=== PATIENT | female | born 1980 | race Caucasian/White ===

== ENCOUNTER 2020-03-09 13:28 | Outpatient (REF) | payer OTHER, SELFPAY ==
--- NOTE | 2020-03-09 13:33 | MM_ITS ---
EXAMINATION: MM SCREENING DIGITAL BREAST TOMOSYNTHESIS, BILATERAL CLINICAL INFORMATION: Screening. Asymptomatic. No prior breast imaging. Age 39. No known family history breast cancer. The lifetime risk of breast cancer based on the Tyrer-Cuzick Model is 9%. COMPARISON: None (current study represents initial baseline exam). TECHNIQUE: Digital breast tomosynthesis is performed in both the craniocaudal and mediolateral oblique views along with computer-aided detection (CAD). Synthesized 2D images are generated from the tomosynthesis. Additional exaggerated left CC view is provided. FINDINGS: There are scattered areas of fibroglandular density (ACR BI-RADS breast composition Category b). The right breast is unremarkable. There is no mass or architectural abnormality. Neither breast shows abnormal calcifications. The axilla and skin contours are unremarkable. The left MLO view has an asymmetric density superior breast approximately 6 cm from nipple without correlate on CC view. This may represent summation artifact. Patient will be recalled to fully characterize baseline appearance. MM/MM tomosynthesis screening BI IMPRESSION: 1. Left: Asymmetric density superior breast on MLO view, possibly summation artifact. 2. Right: No mammographic evidence of malignancy. ASSESSMENT: BI-RADS 0: Incomplete - Need Additional Imaging Evaluation RECOMMENDATION: 1. Additional views of the left breast (3-D spot MLO, 3-D ML). 2. Targeted ultrasound if warranted after review of the additional views. 3. Radiology department staff will contact the patient for additional imaging. This patient's information was entered into a reminder system with a target due date for their next mammogram.
== END 2020-03-09 13:29 | disposition home or self-care (01) ==
LOC: HO.MAMMO 13:28
PROVIDERS: PCP Family Medicine; Visit Provider Advanced Practice Midwife
DX: Z12.31 Encounter for screening mammogram for malignant neoplasm of breast (principal)
CPT/HCPCS: 77063; 77067

== ENCOUNTER 2020-03-16 07:33 | Outpatient (REF) | payer OTHER, SELFPAY ==
[2020-03-16 10:57] LABS: Alanine Aminotransferase 17 U/L (0-31); Albumin Level 4.2 g/dL (3.5-5.0); Alkaline Phosphatase 55 U/L (39-117); Anion Gap 12 (12-20); Aspartate Amino Transferase 18 U/L (5-31); Bilirubin Total 0.9 mg/dL (0.0-1.0); Blood Urea Nitrogen 10 mg/dL (9-16); Calcium 8.7 mg/dL (8.4-10.2); Carbon Dioxide 26 mmol/L (22-29); Chloride 105 mmol/L (96-108); Cholesterol 177 mg/dL; Estimated Glomerular Filt Rate > 60; Glucose Fasting 79 mg/dL (60-99); HDL Cholesterol 58 mg/dL; LDL Cholesterol Calculated 110 mg/dl; Potassium 3.9 mmol/l (3.3-5.1); Sodium 139 mmol/L (135-145); Total Protein 6.5 g/dL (6.5-8.0); Triglycerides 45 mg/dL
[2020-03-16 11:18] LABS: Free T4 (Free Thyroxine) 0.96 ng/dL (0.71-1.85); Thyroid Stimulating Hormone 3.62 uIU/mL (0.32-4.0)
[2020-03-17 16:27] LABS: Triiodothyronine T3 Total 85 ng/dL (76-181)
== END 2020-03-16 07:34 | disposition home or self-care (01) ==
LOC: HO.10HDL 07:33
PROVIDERS: Visit Provider Family Medicine
DX: Z00.00 Encounter for general adult medical examination without abnormal findings (principal); Z13.29 Encounter for screening for other suspected endocrine disorder; Z13.220 Encounter for screening for lipoid disorders
CPT/HCPCS: 36415; 80053; 80061; 84439; 84443; 84480

== ENCOUNTER 2020-04-08 14:21 | Outpatient (REF) | payer OTHER, SELFPAY ==
--- NOTE | 2020-04-08 | MM_ITS ---
EXAMINATION: MM DIAGNOSTIC DIGITAL BREAST TOMOSYNTHESIS, LEFT CLINICAL INFORMATION: Recall from baseline exam for asymmetric density superior left breast without correlate on CC view, likely summation artifact. COMPARISON: Mammography: 03/09/2020, baseline. TECHNIQUE: Digital breast tomosynthesis is performed. 2D images are generated from the tomosynthesis. The following views are obtained: Spot MLO, standard ML FINDINGS: There are scattered areas of fibroglandular density (ACR BI-RADS breast composition Category b). Additional views show no persistent asymmetric density in the area of interest. Finding on recent screening mammography is therefore consistent with summation artifact as suspected. Results are discussed with the patient at time of visit. MM/MM tomosynthesis added views L IMPRESSION: Additional imaging shows no persistent asymmetric density in the area of interest. ASSESSMENT: BI-RADS 1: Negative RECOMMENDATION: Routine annual mammography screening. This patient's information was entered into a reminder system with a target due date for their next mammogram.
== END 2020-04-08 14:22 | disposition home or self-care (01) ==
LOC: HO.MAMMO 14:21
PROVIDERS: PCP Family Medicine; Visit Provider Advanced Practice Midwife
DX: N64.89 Other specified disorders of breast (principal)
CPT/HCPCS: 77061; 77065

== ENCOUNTER 2020-06-02 14:29 | Outpatient (REF) | payer OTHER, SELFPAY ==
[2020-06-02 16:54] LABS: Free T4 (Free Thyroxine) 0.87 ng/dL (0.71-1.85); Thyroid Stimulating Hormone 1.72 uIU/mL (0.32-4.0)
[2020-06-03 08:57] LABS: Thyroid Peroxidase Antibodies 356 IU/mL (<9)
[2020-06-03 18:37] LABS: Thyroglobulin Antibodies 1 IU/mL (< or = 1)
== END 2020-06-02 14:30 | disposition home or self-care (01) ==
LOC: HO.LAB 14:29
PROVIDERS: PCP Family Medicine; Visit Provider Nurse Practitioner Gerontology
DX: E03.9 Hypothyroidism, unspecified (principal); E16.2 Hypoglycemia, unspecified; Z79.899 Other long term (current) drug therapy
CPT/HCPCS: 36415; 84439; 84443; 86376; 86800

== ENCOUNTER 2020-06-28 09:26 | Outpatient (REF) | payer OTHER, SELFPAY ==
[2020-07-01 05:42] LABS: HPV mRNA E6/E7 rflx Not Detected (Not Detected)
== END 2020-06-28 09:27 | disposition home or self-care (01) ==
LOC: HO.LAB 09:26
PROVIDERS: Visit Provider Advanced Practice Midwife
DX: Z01.419 Encounter for gynecological examination (general) (routine) without abnormal findings (principal); E06.3 Autoimmune thyroiditis; Z79.899 Other long term (current) drug therapy
CPT/HCPCS: 87624; 88142

== ENCOUNTER 2020-07-23 09:05 | Outpatient (REF) | payer OTHER, SELFPAY ==
[2020-07-23 10:42] LABS: Free T4 (Free Thyroxine) 0.92 ng/dL (0.71-1.85); Thyroid Stimulating Hormone 1.97 uIU/mL (0.32-4.0)
== END 2020-07-23 09:06 | disposition home or self-care (01) ==
LOC: HO.LAB 09:05
PROVIDERS: PCP Family Medicine; Visit Provider Nurse Practitioner Gerontology
DX: E03.9 Hypothyroidism, unspecified (principal)
CPT/HCPCS: 36415; 84439; 84443

== ENCOUNTER → 2020-08-03 15:52 | Outpatient (BNVA) | payer OTHER, SELFPAY | PROVIDERS: PCP Family Medicine; Visit Provider Internal Medicine ==

== ENCOUNTER 2020-09-09 08:43 | Outpatient (REF) | payer OTHER, SELFPAY ==
[2020-09-09 10:25] LABS: Free T4 (Free Thyroxine) 0.87 ng/dL (0.71-1.85); Thyroid Stimulating Hormone 1.44 uIU/mL (0.32-4.0); Vitamin D 25-OH Total 46.4 ng/mL (>30)
[2020-09-09 10:35] LABS: Estimated Average Glucose 91 mg/dL; Hemoglobin A1c % 4.8 %
[2020-09-10 07:06] LABS: Insulin Level Total 5.2 uIU/mL; Thyroglobulin Antibodies 1 IU/mL (< or = 1); Thyroid Peroxidase Antibodies 276 IU/mL (<9)
[2020-09-10 07:51] LABS: Triiodothyronine T3 Free 2.7 pg/mL (2.3-4.2)
[2020-09-11 17:17] LABS: C Peptide 1.28 ng/mL (0.80-3.85)
[2020-09-14 11:22] LABS: Triiodothyronine T3 Reverse 15 ng/dL (8-25)
[2020-09-14 16:12] LABS: Iodine, Random Urine 81 mcg/L (34-523)
== END 2020-09-09 08:44 | disposition home or self-care (01) ==
LOC: HO.LAB 08:43
PROVIDERS: PCP Family Medicine; Visit Provider Allergy & Immunology Allergy
DX: E16.1 Other hypoglycemia (principal); E06.3 Autoimmune thyroiditis; E55.9 Vitamin D deficiency, unspecified
CPT/HCPCS: 36415; 82306; 83036; 83525; 83789; 84439; 84443; 84481; 84482; 84681; 86376; 86800

== ENCOUNTER 2020-10-21 09:44 | Outpatient (REF) | payer OTHER, SELFPAY ==
[2020-10-21 10:56] LABS: Iron 153 mcg/dL (30-160); Percent Iron Saturation 62 % (15-50); Total Iron Binding Capacity 245 mcg/dL (228-428); Unsaturated Iron Binding 92 ug/dL
[2020-10-21 11:16] LABS: Ferritin 51 ng/mL (10-250)
[2020-10-22 14:22] LABS: Immunoglobulin A 209 mg/dL (47-310); Immunoglobulin M 81 mg/dL (50-300); Streptolysin O Antibody <50 IU/mL (<200)
[2020-10-24 22:47] LABS: Immunoglobulin E 31 kU/L (<OR=114)
[2020-10-25 15:21] LABS: Mycoplasma Pneumoniae - IgG 1.47 (<=0.90); Mycoplasma Pneumoniae - IgM 82 U/mL (<770)
[2020-10-25 17:40] LABS: Strep DNASE B Antibody <95 U/mL (<301)
[2020-10-25 21:21] LABS: Immunoglobulin G Subclass 1 422 mg/dL (382-929); Immunoglobulin G Subclass 2 414 mg/dL (241-700); Immunoglobulin G Subclass 3 53 mg/dL (22-178); Immunoglobulin G Total 964 mg/dL (600-1640)
== END 2020-10-21 09:45 | disposition home or self-care (01) ==
LOC: HO.LAB 09:44
PROVIDERS: PCP Family Medicine; Visit Provider Allergy & Immunology Allergy
DX: D89.89 Other specified disorders involving the immune mechanism, not elsewhere classified (principal); E61.1 Iron deficiency
CPT/HCPCS: 36415; 82728; 82784; 82785; 83540; 86060; 86215; 86738

== ENCOUNTER 2021-05-13 08:57 | Outpatient (REF) | payer OTHER, SELFPAY ==
[2021-05-13 09:22] LABS: MANUAL DIFF FLAG NO
[2021-05-13 10:06] LABS: Basophils Percent Auto 0.9 % (0-2); Eosinophils Absolute Auto 0.1 X10*3/uL (0.0-0.4); Eosinophils Percent Auto 1.8 % (0-4); Hematocrit 39.3 % (37.0-47.0); Hemoglobin 12.8 g/dl (12.0-16.0); Imm Gran Abs Auto 0.01 X10*3/uL (0.00-0.03); Imm Gran Pct Auto 0.2 % (0.0-0.4); Lymphocytes Absolute Auto 1.4 X10*3/uL (1.2-4.9); Lymphocytes Percent Auto 32.6 % (20-40); Mean Corpuscular HGB Conc 32.6 g/dl (31.0-35.0); Mean Corpuscular Hemoglobin 30.4 pg (27.0-33.0); Mean Corpuscular Volume 93.3 fL (80.0-98.0); Mean Platelet Volume 10.1 fL (9.4-12.3); Monocytes Absolute Auto 0.4 X10*3/uL (0.1-1.2); Neutrophils Absolute Auto 2.4 x10*3/uL (2.0-8.3); Neutrophils Percent Auto 54.5 % (45-73); Platelet Count 282 X10*3/uL (160-400); Red Blood Count 4.21 X10*6/uL (4.20-5.50); White Blood Count 4.4 X10*3/uL (4.8-10.8)
[2021-05-13 10:53] LABS: Alanine Aminotransferase 7 U/L (0-31); Albumin Level 4.1 g/dL (3.5-5.0); Alkaline Phosphatase 55 U/L (39-117); Anion Gap 9 (12-20); Aspartate Amino Transferase 14 U/L (5-31); Bilirubin Total 0.8 mg/dL (0.0-1.0); Blood Urea Nitrogen 7 mg/dL (9-16); Calcium 9.6 mg/dL (8.4-10.2); Carbon Dioxide 28 mmol/L (22-29); Chloride 106 mmol/L (96-108); Cholesterol 177 mg/dL; Estimated Glomerular Filt Rate > 60; Glucose Fasting 81 mg/dL (60-99); HDL Cholesterol 55 mg/dL; LDL Cholesterol Calculated 111 mg/dl; Potassium 4.6 mmol/L (3.3-5.1); Sodium 138 mmol/L (135-145); Total Protein 6.5 g/dL (6.5-8.0); Triglycerides 56 mg/dL
[2021-05-13 10:57] LABS: TSH reflex Free T4 2.07 uIU/mL (0.32-4.0); Vitamin D 25-OH Total 30.2 ng/mL (>30)
== END 2021-05-13 08:58 | disposition home or self-care (01) ==
LOC: HO.LAB 08:57
PROVIDERS: PCP Family Medicine; Visit Provider Family Medicine
DX: Z00.00 Encounter for general adult medical examination without abnormal findings (principal); E55.9 Vitamin D deficiency, unspecified
CPT/HCPCS: 36415; 80053; 80061; 82306; 84443; 85025

== ENCOUNTER 2021-09-26 08:56 | Outpatient (REF) | payer OTHER, SELFPAY ==
[2021-09-26 10:08] LABS: Free T4 (Free Thyroxine) 0.86 ng/dL (0.71-1.85); Thyroid Stimulating Hormone 2.52 uIU/mL (0.32-4.0)
[2021-09-28 14:07] LABS: Triiodothyronine T3 Free 2.8 pg/mL (2.3-4.2)
[2021-10-02 15:32] LABS: Triiodothyronine T3 Reverse 15 ng/dL (8-25)
[2021-10-02 16:03] LABS: Iodine, Serum/Plasma 52 mcg/L (52-109)
== END 2021-09-26 08:57 | disposition home or self-care (01) ==
LOC: HO.10HDL 08:56
PROVIDERS: Visit Provider Allergy & Immunology Allergy
DX: E06.3 Autoimmune thyroiditis (principal)
CPT/HCPCS: 36415; 83789; 84439; 84443; 84481; 84482

== ENCOUNTER → 2022-03-07 13:16 | Outpatient (BNVA) | payer OTHER, SELFPAY | PROVIDERS: PCP Family Medicine; Visit Provider Advanced Practice Midwife | DX: Z12.4 Encounter for screening for malignant neoplasm of cervix (principal) ==

== ENCOUNTER 2022-05-17 12:59 | Outpatient (REF) | payer OTHER, SELFPAY ==
[2022-05-17 13:52] LABS: Influenza A PCR NEGATIVE (Negative); Influenza B PCR NEGATIVE (Negative); Resp Syncy Virus RNA Qual PCR NEGATIVE (Negative); SARS COV2 PCR INHOUSE NEGATIVE (Negative)
== END 2022-05-17 13:00 | disposition home or self-care (01) ==
LOC: HO.LNP 12:59
PROVIDERS: Visit Provider Nurse Practitioner Family
DX: Z20.822 Contact with and (suspected) exposure to COVID-19 (principal); R09.89 Other specified symptoms and signs involving the circulatory and respiratory systems
CPT/HCPCS: 0241U

== ENCOUNTER 2022-07-07 09:37 | Outpatient (REF) | payer OTHER, SELFPAY ==
[2022-07-07 11:32] LABS: Free T4 (Free Thyroxine) 0.78 ng/dL (0.71-1.85); Thyroid Stimulating Hormone 0.97 uIU/mL (0.32-4.0)
[2022-07-09 06:08] LABS: Follicle Stimulating Hormone 15.2 mIU/mL; Lutenizing Hormone 19.9 mIU/mL; Sex Hormone Binding Globulin 42 nmol/L (17-124)
[2022-07-09 13:13] LABS: Thyroglobulin 18.8 ng/mL; Thyroid Peroxidase Antibodies 300 IU/mL (<9)
[2022-07-11 18:13] LABS: Iodine, Random Urine 102 mcg/L (34-523)
[2022-07-12 13:38] LABS: Triiodothyronine T3 Reverse 13 ng/dL (8-25)
[2022-07-12 17:29] LABS: Progesterone 0.2 ng/mL
[2022-07-15 18:04] LABS: Pregnenolone, LC/MS 69 ng/dL (22-237)
[2022-07-16 14:54] LABS: Testosterone, Free 2.8 pg/mL (0.1-6.4); Testosterone, Total 25 ng/dL (2-45)
[2022-07-22 02:08] LABS: Estradiol Free 2.87 pg/mL; Estradiol, Ultrasensitive 172 pg/mL
== END 2022-07-07 09:38 | disposition home or self-care (01) ==
LOC: HO.LAB 09:37
PROVIDERS: PCP Family Medicine; Visit Provider Allergy & Immunology Allergy
DX: N94.89 Other specified conditions associated with female genital organs and menstrual cycle (principal); E06.3 Autoimmune thyroiditis
CPT/HCPCS: 36415; 82670; 82681; 83001; 83002; 83789; 84143; 84144; 84270; 84402; 84403; 84432; 84439; 84443; 84481; 84482; 86376

== ENCOUNTER 2022-10-26 15:22 | Outpatient (AMB) | payer OTHER, SELFPAY ==
--- NOTE | 2022-10-26 15:26 | MHC.PC.OV ---
Vital Signs 10/26/22 15:27 Height 5 ft 2 in Weight 161 lb 4 oz BMI 29.5 BP 144/82 H Blood Pressure Location Rt brachial Position Sitting Respiration 12 Pulse 73 Pulse Source Pulse Oximeter Temp 98.4 F Temp Source Temporal Artery Scan Pulse Oximetry (%) 99 Oxygen Delivery Method Room Air Intake Visit Reasons: Acute diarrhea for 6 days Intake Note: Patient states she has Clif[place], and cant have gluten. Patient states that she recently just came home from a [place] trip and thinks she may have consumed gluten through eating [employer]. Patient states that she hasnt been able to eat but has been able to hydrate. Orthophotography Technician Required: No Accompanied by: Self / Same As Patient Allergies amoxicillin [From Augmentin] Adverse Reaction (Intermediate, Verified 10/26/22 15:52) vomiting clavulanic acid [From Augmentin] Adverse Reaction (Intermediate, Verified 10/26/22 15:52) vomiting Doxycycline (Rosacea) Allergy (Unknown, Uncoded 10/26/22 15:52) vomiting Medication List - Last Reconciled 10/26/22 by Jason Fair CNP citalopram 10 mg PO DAILY levothyroxine 50 mcg PO QAM liothyronine 5 mcg PO DAILY naltrexone 3.5 mg PO DAILY norethindrone (contraceptive) 0.35 mg PO DAILY 84 days Tobacco use date assessed: 10/26/22 Dental Screening Dental Screen Date: 10/26/22 Did you have a dental visit in the last 12 months?: Yes Did you have a dental problem in the last 6 months where you did not have access to dental care?: No Was dental information given to patient?: Patient has dentist HPI HPI Comments History of Present Illness Details 41-year-old female presents with complaints of diarrhea. She notes that her symptoms started 6 days ago after she returned from a trip in [place]. She had [place] fries from [employer] on her way home that evening; her symptoms started the following day. She states her appetite has been fair. She thinks her symptoms may be attributed to gluten reaction. She has been taking Imodium with good effect. 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 No fever, chills, body aches, abdominal pain, nausea, vomiting, fatigue, or weakness. She denies sick contact. She denies recent antibiotic use. PFSH Medical History Hypoglycemia Hypothyroidism Vitamin D deficiency Surgical History No history of previous surgery Family History Mother Family history of thyroid problem Father Type 1 diabetes Maternal Grandfather Type 2 diabetes mellitus Maternal Grandmother Family history of thyroid problem Social History Household Members: Spouse and Children Housing: House Alcohol intake: never Patient Tobacco Use Status: Never used Tobacco e-Cigarette/Vaping Use: Never Used Second Hand Smoke Exposure: No service: No Current occupational exposures/hazards: No Gender identity: Female Cognitive needs: No Hearing needs: No Vision needs: No Female Reproductive History Menstrual Age of Menarche: 12 Questionnaire GOOD-7 AMB Questionnaire GOOD-7 Date GOOD - 7 assessed: 05/03/21 Source: Developed by Drs. Jose Antonio Lyles, Sabine Ma, Adan Foote and colleagues, with an educational sanna from [employer]. Review of Systems Const Details: Const Denies chills, Denies fatigue, Denies fever(s), Denies headache(s) and Denies weakness ENT Denies dizziness and Denies headache(s) Card Denies chest pain, Denies lightheadedness, Denies dyspnea and Denies other (Palpitations) Resp Denies cough, Denies dyspnea, Denies wheezing and Denies other ( shortness of breath) GI Reports as per HPI Denies hematuria and Denies dysuria Musc Denies abnormal gait, Denies myalgias, Denies arthralgias, Denies numbness and Denies tingling Skin/Breast Denies rash, Denies unusual bruising and Denies wounds Neuro Denies abnormal gait, Denies dizziness, Denies headache(s), Denies memory loss, Denies numbness, Denies Sensory deficit (Neuro), Denies tingling and Denies weakness Psych Denies anxiety, Denies depression, Denies memory loss Endo Denies cold intolerance, Denies fatigue, Denies heat intolerance, Denies polydipsia and Denies polyuria Aller/Immun Denies wheezing Physical exam (Primary Care) Vital Signs: Last Vital Signs Temp 98.4 F 10/26/22 15:27 Pulse 73 10/26/22 15:27 Resp 12 10/26/22 15:27 BP 144/82 H 10/26/22 15:27 Pulse Ox 99 10/26/22 15:27 Oxygen Delivery Method Room Air 10/26/22 15:27 BMI result Body Mass Index 29.5 Tobacco/Smoking Status: Tobacco use Status Tobacco use date assessed 10/26/22 10/26/22 15:35 Patient Tobacco Use Status Never used Tobacco 10/26/22 15:35 e-Cigarette/Vaping Use Never Used 10/26/22 15:35 Const Other: General: no acute distress and well developed Nutritional Appearance: well nourished Orientation/consciousness: patient oriented x3 HENMT Head: Yes normocephalic and Yes atraumatic Eyes General: appearance normal, both eyes and all related structures Pupils: Equal, round and reactive pupils present EOM: EOMs intact bilaterally Resp Effort & Inspection: normal respiratory effort Auscultation: clear to auscultation bilaterally Cardio Rate: regular rate Rhythm: regular rhythm Heart sounds: S1 normal heart sound present, S2 normal heart sound present, no gallops, no murmurs and no rubs GI Palpation (GI): No Abdominal aortic bruit present, Soft to palpation, nontender, No hepatosplenomegaly present and No Rebound tenderness present Auscultation: normal bowel sounds General: Yes no CVA tenderness Back/Spine/Pelvis Back: no CVA tenderness Cervical Spine: cervical ROM normal and No Cervical spine tenderness Thoracic/Lumbar Spine: thoraco-lumbar ROM normal, No pain with thoraco-lumbar ROM, No thoracic spinal tenderness and No lumbar spinal tenderness Extrem General: Yes normal to inspection, No edema and No calf tenderness Skin General: warm and dry. Normal skin color. Normal skin turgor Lesions: no lesions Rashes: no rashes Trauma: no lacerations or abrasions Wounds: no wounds Nails: normal Neuro General: patient oriented x3, gait normal and no focal neuro deficit Cranial nerves: Yes Equal, round and reactive pupils present Cognition (Neuro): normal cognition Gait exam (Neuro): Normal gait present Sensory Exam: No Sensory deficit (Neuro) Psych Appearance: grossly normal Affect: normal affect Attitude: cooperative Thought process: Normal thought process present Assessment and Plan Assessment & Plan (1) Diarrhea: Code(s): R19.7 - Diarrhea, unspecified Plan: Possibly gluten reaction, or viral of bacterial reaction Prednisone ordered. Take as prescribed GI panel ordered May take Metamucil as needed Adequate hydration encouraged Follow-up with worsening or new symptoms Verbalized understanding and agreed with treatment plan. Orders: Orders GI Panel Today R19.7 - Diarrhea, unspecified Medications: New prednisone 20 mg PO DAILY 5 days 5 tabs 0RF Coding Level of Care Code Est Pt Level 3 (43925) Diagnoses Diarrhea R19.7
[2022-10-26 15:27] VITALS: BP 144/82; PULSE 73; RESP 12; TEMP 36.9; O2SAT 99; BMI 29.5
== END 2022-10-26 16:14 | disposition home or self-care (01) ==
PROVIDERS: PCP Family Medicine; Visit Provider Nurse Practitioner Family
DX: R19.7 Diarrhea, unspecified (principal)
CPT/HCPCS: 99213

== ENCOUNTER 2022-10-26 16:36 | Outpatient (REF) | payer OTHER, SELFPAY | END 2022-10-26 16:37 | disposition home or self-care (01) | LOC: HO.LAB 16:36 | PROVIDERS: PCP Family Medicine; Visit Provider Nurse Practitioner Family | DX: Z13.89 Encounter for screening for other disorder (principal) ==

== ENCOUNTER 2022-10-27 | Outpatient (REF) | payer OTHER, SELFPAY ==
[2022-10-27 15:11] LABS: Adenovirus F 40/41 Not Detected (Not Detect.); Astrovirus Not Detected (Not Detect.); Campylobacter Not Detected (Not Detect.); Cryptosporidium Not Detected (Not Detect.); Cyclospora cayetanensis Not Detected (Not Detect.); E. coli EAEC Not Detected (Not Detect.); E. coli EPEC Not Detected (Not Detect.); E. coli ETEC Not Detected (Not Detect.); E. coli STEC Not Detected (Not Detect.); Entamoeba histolytica Not Detected (Not Detect.); Giardia lamblia Not Detected (Not Detect.); Norovirus GI/GII Not Detected (Not Detect.); Plesiomonas shigelloides Not Detected (Not Detect.); Rotavirus A Not Detected (Not Detect.); Salmonella Not Detected (Not Detect.); Sapovirus Not Detected (Not Detect.); Shigella sp./EIEC Not Detected (Not Detect.); Vibrio Not Detected (Not Detect.); Vibrio Cholerae Not Detected (Not Detect.); Yersinia enterocolitica Not Detected (Not Detect.)
== END 2022-10-27 00:01 | disposition home or self-care (01) ==
LOC: HO.LNP
PROVIDERS: Visit Provider Nurse Practitioner Family
DX: R19.7 Diarrhea, unspecified (principal)
CPT/HCPCS: 87507

== ENCOUNTER 2023-02-23 07:48 | Outpatient (REF) | payer OTHER, SELFPAY ==
[2023-02-23 09:51] LABS: T4 Thyroxine 6.6 ug/dL (4.5-12.0); Thyroid Stimulating Hormone 1.01 uIU/mL (0.32-4.0)
[2023-02-24 20:24] LABS: Triiodothyronine T3 Free 2.9 pg/mL (2.3-4.2)
[2023-02-27 09:54] LABS: Triiodothyronine T3 Reverse 16 ng/dL (8-25)
== END 2023-02-23 07:49 | disposition home or self-care (01) ==
LOC: HO.LAB 07:48
PROVIDERS: PCP Family Medicine; Visit Provider Allergy & Immunology Allergy
DX: E06.3 Autoimmune thyroiditis (principal)
CPT/HCPCS: 36415; 84436; 84443; 84481; 84482

== ENCOUNTER 2023-03-06 09:22 | Outpatient (AMB) | payer OTHER, SELFPAY ==
--- NOTE | 2023-03-06 09:23 | A.OFFVIS_ITS ---
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 Intake Note: Is having her menses twice in a month and her last menses was 11 days long Product Marketer Required: No Information Interpreted: non-clinical & clinical Foiling Machine Operator: Foiling Machine Operator Present (Aidyn) Allergies amoxicillin [From Augmentin] Adverse Reaction (Intermediate, Verified 03/06/23 09:29) vomiting clavulanic acid [From Augmentin] Adverse Reaction (Intermediate, Verified 03/06/23 09:29) vomiting Doxycycline (Rosacea) Allergy (Unknown, Uncoded 03/06/23 09:29) vomiting Medication List - Last Reconciled 03/06/23 by Lynn Juarez CNM citalopram 10 mg PO DAILY levothyroxine 50 mcg PO QAM liothyronine 5 mcg PO DAILY naltrexone 3.5 mg PO DAILY norethindrone (contraceptive) 0.35 mg PO DAILY 84 days Is last menstrual period known: Yes Last menstrual period: 02/21/23 Post menopausal: No HPI MUSEUM EDUCATOR annual exam HPI Details Patient 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 She sees a belt conveyor drier to manage her thyroid issues and is on different medications for that and had all of her hormones checked the 1st time she had abnormal bleeding in July. In July she had 2 periods 1 that was the beginning of July of around July 11 or and it lasted fiber 6 days which is her norm and then 1 week later she had another period. Then in January at the beginning of January she had a period that was normal, and then again in the middle of January she had another 1. this last menses then came on February 21 and it lasted until March 05 and is just trailing off at this moment. She said her belt conveyor drier checked all of her hormone levels to a more extensive degree that is usually done in this institution and everything came back in the normal range. Is on norethindrone control pills and is on those because when I questioned her about history of migraines with auras she did describe them and she had been on combination pills so I changed her from combination pills to the norethindrone sometime ago. She needs to be on control because she says for looks at her funny she gets and she does not want to be at 42 years old. she needs a reliable method of control. She is up-to-date on her mammograms and is expecting a letter from [facility] to schedule her next 1 at the beginning of the year [facility] Medical History Vitamin D deficiency Hypoglycemia Hypothyroidism Surgical History No history of previous surgery Family History Mother Family history of thyroid problem Father Type 1 diabetes Maternal Grandfather Type 2 diabetes mellitus Maternal Grandmother Family history of thyroid problem Social History Household Members: Spouse and Children Housing: House Alcohol intake: never Patient Tobacco Use Status: Never used Tobacco e-Cigarette/Vaping Use: Never Used Second Hand Smoke Exposure: No service: No Current occupational exposures/hazards: No Gender identity: Female Cognitive needs: No Hearing needs: No Vision needs: No Female Reproductive History Menstrual Age of Menarche: 12 Duration of menses: >10 days Date of last menstrual period: 02/21/23 control method: pills Total pregnancies: 2 Full term: 2 Number of Living Children: 2 Date of last pap smear: 06/29/20 (negative) Date of Mammogram: 04/08/20 Physical Exam Const General: healthy appearing, comfortable, no acute distress, well developed and a lert Nutritional Appearance: average body habitus Orientation/consciousness: patient oriented x3 Limitations: no limitations HEENT Head: Yes normocephalic Neck Neck: Yes normal visual inspection Chest Chest palpation & inspection: normal inspection of the chest Breast/axilla inspection: normal inspection of the breasts and normal inspection of the axillae Breast/axilla palpation: normal palpation of the breasts and normal palpation of the axillae Resp Effort & Inspection: normal respiratory effort GI Inspection: Yes normal to inspection, No Abdominal wall edema and No distended Palpation (GI): Soft to palpation and nontender General: Yes bladder normal to palpation External Female Exam: normal external appearance and normal appearance of the urethra Speculum Exam - Vagina: normal appearance of the vagina, normal palpation and normal vaginal discharge Speculum Exam - Cervix: normal appearance of the cervix, normal palpation and nontender Bimanual exam- vagina & uterus: normal bimanual exam, normal palpation, uterine size normal, bladder normal to palpation, consistency normal, normal palpation, uterine mobility normal, uterine shape normal, No Cervical tenderness present, non-tender and no cervical motion tenderness Bimanual Exam- Adnexa, other: normal adnexae, no masses, normal and No adnexal tenderness Neuro General: patient oriented x3 Assessment & Plan Assessment & Plan (1) Screening for cervical cancer: Comment: 06/28/20 pap= neg w neg HPV, Code(s): Z12.4 - Encounter for screening for malignant neoplasm of cervix (2) Breast cancer screening by mammogram: Code(s): Z12.31 - Encounter for screening mammogram for malignant neoplasm of breast (3) Well woman exam with routine gynecological exam: Code(s): Z01.419 - Encounter for gynecological examination (general) (routine) without abnormal findings (4) Counseling for control, oral contraceptives: Comment: is continuing on norethindrone 0.35 mg q.day. Code(s): Z30.09 - Encounter for other general counseling and advice on contraception (5) Abnormal uterine bleeding (AUB): Code(s): N93.9 - Abnormal uterine and vaginal bleeding, unspecified Plan extensive discussion about the abnormal bleeding pattern and the need to evaluate it and possible findings. I will order a pelvic ultrasound and we will arrange for a visit for an endometrial biopsy after the ultrasound result is back and I reviewed with her what that would feel like and possible outcomes and management after that discussed the possibility of a Mirena IU S if everything is normal if there is anything abnormal I will refer her to either Dr. Ramirez and if there were any thing that he felt would be better managed at [facility] he would refer her there. For now she will stay on the norethindrone control pills. cultures were done just in anticipation of the endometrial biopsy since there is some old blood in the vaginal vault from the end of her menses told her to expect Gardnerella as it is commonly found.\ also discussed her concern about the weight gain and assured her that she seems to be doing the best she can and this could be challenging. Suggested some aerobic addition she will be scheduling the mammogram when she gets a letter.. Orders: Orders US pelvic and transvaginal Today N93.9 - Abnormal uterine and vaginal bleeding, unspecified, Z01.419 - Encounter for gynecological examination (general) (routine) without abnormal findings, Z12.31 - Encounter for screening mammogram for malignant neoplasm of breast, Z12.4 - Encounter for screening for malignant neoplasm of cervix, Z30.09 - Encounter for other general counseling and advice on contraception Medications: Refilled norethindrone (contraceptive) 0.35 mg PO DAILY 84 days 84 tabs 4RF Coding Level of Care Code Est Pt Prev Care 40-64y(44446) Diagnoses Screening for cervical cancer Z12.4 Breast cancer screening by mammogram Z12.31 Well woman exam with routine gynecological exam Z01.419 Counseling for control, oral contraceptives Z30.09 Abnormal uterine bleeding (AUB) N93.9
== END 2023-03-06 13:20 | disposition home or self-care (01) ==
LOC: HO.HWS 09:23
PROVIDERS: PCP Family Medicine; Visit Provider Advanced Practice Midwife
DX: Z01.419 Encounter for gynecological examination (general) (routine) without abnormal findings (principal); N93.9 Abnormal uterine and vaginal bleeding, unspecified
CPT/HCPCS: 99396

== ENCOUNTER 2023-03-06 09:22 | Outpatient (REF) | payer OTHER, SELFPAY ==
[2023-03-07 02:48] LABS: CT PCR NOT DETECTED (Not Detect.); NG PCR NOT DETECTED (Not Detect.)
[2023-03-07 12:48] LABS: BV Int Neg Control Negative (Negative); BV Int Pos Control Positive (Positive)
== END 2023-03-06 09:23 | disposition home or self-care (01) ==
LOC: HO.LNP 09:22
PROVIDERS: PCP Family Medicine; Visit Provider Advanced Practice Midwife
DX: Z01.419 Encounter for gynecological examination (general) (routine) without abnormal findings (principal); N93.9 Abnormal uterine and vaginal bleeding, unspecified; Z20.2 Contact with and (suspected) exposure to infections with a predominantly sexual mode of transmission; Z79.899 Other long term (current) drug therapy
CPT/HCPCS: 0353U; 87480; 87510; 87660

== ENCOUNTER 2023-03-08 15:17 | Outpatient (REF) | payer OTHER, SELFPAY | END 2023-03-08 15:18 | disposition home or self-care (01) | LOC: HO.HMGCX 15:17 | PROVIDERS: PCP Family Medicine; Visit Provider Advanced Practice Midwife | DX: N83.202 Unspecified ovarian cyst, left side (principal); N83.201 Unspecified ovarian cyst, right side; N93.9 Abnormal uterine and vaginal bleeding, unspecified | CPT/HCPCS: 76830; 76856 ==

== ENCOUNTER 2023-04-15 10:41 | Outpatient (AMB) | payer OTHER, SELFPAY ==
--- NOTE | 2023-04-15 10:54 | A.OFFVIS_ITS ---
Intake Vital Signs 04/15/23 11:07 Height 5 ft 2 in Weight 171 lb BMI 31.3 BP 166/102 H Intake Visit Reasons: EMB/US follow up Component Assembler Supervisor Required: No Information Interpreted: non-clinical & clinical Media Arts Professor: Media Arts Professor Present (Josselyn) Accompanied by: Allergies amoxicillin [From Augmentin] Adverse Reaction (Intermediate, Verified 04/15/23 11:08) vomiting clavulanic acid [From Augmentin] Adverse Reaction (Intermediate, Verified 04/15/23 11:08) vomiting Doxycycline (Rosacea) Allergy (Unknown, Uncoded 04/15/23 11:08) vomiting Is last menstrual period known: Yes Last menstrual period: 03/30/23 Post menopausal: No HPI EMB/US follow up HPI Details Patient is here today with her for review of the ultrasound and endometrial biopsy. She is very anxious about possible bad results including cancer and is curious about what if scenarios. [facility] Medical History Vitamin D deficiency Hypoglycemia Hypothyroidism Surgical History No history of previous surgery Family History Mother Family history of thyroid problem Father Type 1 diabetes Maternal Grandfather Type 2 diabetes mellitus Maternal Grandmother Family history of thyroid problem Social History Household Members: Spouse and Children Housing: House Alcohol intake: never Patient Tobacco Use Status: Never used Tobacco e-Cigarette/Vaping Use: Never Used Second Hand Smoke Exposure: No service: No Current occupational exposures/hazards: No Gender identity: Female Cognitive needs: No Hearing needs: No Vision needs: No Female Reproductive History Menstrual Age of Menarche: 12 Duration of menses: 3-5 days Date of last menstrual period: 03/30/23 control method: pills Date of last pap smear: 06/29/20 (negative) Physical Exam Vital Signs: Last Vital Signs BP 166/102 H 04/15/23 11:07 BMI result Body Mass Index 31.3 Office Procedures Endometrial Biopsy Details: Patient is here for an endometrial biopsy. I explained the procedure and what the goal of the obtaining the sample is, and why we need need to do it today. Patient signed consent form, and appropriate testing was done beforehand. test is negative. Patient was placed in recumbent position. Bimanual exam was done to reassess position of cervix and uterus. Speculum was placed to visualize cervix the cervix was cleansed with Betadine. A tenaculum was gently placed to straighten the axis. The uterus was sounded to 8cm. The endometrial biopsy Pipelle was inserted gently, and withdrawn to obtain sampling of the endometrial tissue for 3 passes. And with this it appeared that it may not be adequate sampling so the plastic suction curette was also used for 3 passes. The tenaculum was removed and the cervix was swabbed gently as any bleeding subsided. the patient sat up after removal of the speculum. She is to return for discussion of the results and review of any other testing. [id number] Biopsy Results AMB Test Urine AMB Test Urine Negative Last Edit by MELISSA Hurtado on 04/15/23 11:17 Results Reviewed Results Reviewed: Laboratory Last Values [facility] Negative 04/15/23 11:16 Patient: Negar Elias MR#: [id number] : 1980 Acct:[id number] Age/Sex: 42 / F ADM Date: 03/08/23 Loc: HO.HMGCX Attending Dr: Lynn Juarez CNM Ordering Physician: Lynn Juarez CNM Date of Service: 03/08/23 Procedure(s): US pelvic and transvaginal Accession Number(s): [id number] cc: Geoffrey Zhou MD; Lynn Juarez CNM~ EXAMINATION: US PELVIS CLINICAL INFORMATION: Pain LMP 02/21/2023 COMPARISON: None available. TECHNIQUE: Ultrasound of the pelvis is performed using both transabdominal and transvaginal transducers along with Doppler. Transvaginal imaging is performed due to inadequate visualization transabdominally. FINDINGS: Uterus: The uterus is anteverted and measures 8.3 x 4.5 x 5.0 cm. The uterine volume measured 5.0 cm The double wall endometrial thickness is 0.6 mm. The uterus is smooth in contour and has normal myometrial echogenicity. No visible fibroid. Adnexa: There is no pelvic ascites or fluid collection. Right ovary measures 3.4 x 1.9 x 2.3 cm. 8.0 cm volume of the right ovary and there is 1.4 x 0.7 x 1.5 cm cyst Left ovary measures 4.4 x 3.4 x 3.7 cm. With a volume of left ovary measured 29 mL and there is 2.5 x 2.3 x 2.3 cm cyst. There is trace of fluid in cul-de-sac US/US pelvic and transvaginal IMPRESSION: Bilateral ovarian cysts. Trace of fluid in cul-de-sac. Dictated By: Sierra Prado MD Signed By: <Electronically signed by Sierra Prado MD in OV> 03/13/23 1638 Name: CurtNegar Age/Sex: 39/F Attending: Lynn Juarez CNM : 1980 Submitted by: Lynn Juarez CNM Copies to: MR #: [id number] Status: DEP REF Collected: 06/28/20 Location: .LAB Received: 06/29/20 Interpretation Satisfactory for evaluation. Negative for intraepithelial lesion or malignancy. HPV mRNA E6/E7: NOT DETECTED This assay detects E6/E7 viral messenger RNA (mRNA) from 14 high-risk HPV types (16, 18, 31, 33, 35, 39, 45, 51, 52, 56, 58, 59, 66, 68) HPV testing performed by [facility], [place], [place]. See reference laboratory portion of the EMR for entire report. Clinical Information LMP: 06/12/20 Previous PAP test: 2016, WNL Material Received ThinPrep Cervical Electronically Signed By: Yandy Parada 07/01/20 7342 The Pap Test is a screening procedure with the inherent possibility of both false negative and false positive results. Results should be interpreted in the context of historic and current clinical findings. Reliability of the Pap Test is enhanced by performing the test on a regular repetitive basis. Patient: Negar Elais Age/Sex: 39/F MR#: [id number] Page 1 of 1 DD/ 1602 Assessment & Plan Assessment & Plan (1) Abnormal uterine bleeding (AUB): Code(s): N93.9 - Abnormal uterine and vaginal bleeding, unspecified (2) Counseling for control, oral contraceptives: Comment: is continuing on norethindrone 0.35 mg q.day. Code(s): Z30.09 - Encounter for other general counseling and advice on contraception (3) Screening for cervical cancer: Comment: 06/28/20 pap= neg w neg HPV, Code(s): Z12.4 - Encounter for screening for malignant neoplasm of cervix Plan I reviewed the ultrasound with her including the 2 small simple cysts and the normal assessment of the endometrial lining. Reviewed the possibilities of fi ndings that we may obtain today including benign results indeterminate results possibly from inadequate sampling which will then deserve further workup and I would recommended be with Dr. Ramirez, or pathologic results which I would referred to Dr. Ramirez and he would make his best recommendations about care from there. Discussed that there is always the possibility of transfer of care to [facility] should that be recommended. She has a history of irregular periods all her life and was put on control pills extremely early and was on combination pills until she started getting migraines which is when she was switch to the norethindrone control pills. Discussed the possible outcomes from this endometrial biopsy today including a) negative benign results.,b) indeterminate results resulting from in sufficient sampling. If this is the case then I will recommend that she see Dr. Ramirez for further testing and evaluation and management. C) if there is anything pathologic found, I will also refer her to Dr. Ramirez and he will consider and discuss options with her which may include further management further evaluation further testing and possibly referral to [facility] for further management as well. If the findings are benign, and there was no atypia found were finding of concern then 1 option would be to continue on as she has with the norethindrone pills, or the other option could include a Mirena IU S which slowly constantly releases levonorgestrel and helps protect against buildup the lining of the uterus. Discussed that 1 can still have an irregular spotting bleeding brown discharge with a Mirena as well.. We will see her in 1 week to review the results. With her permission if I get results in sooner and can call her she is open to that she is extremely anxious and would prefer results the sooner the better. Orders: Orders AMB Endometrial Biopsy Today N93.9 - Abnormal uterine and vaginal bleeding, unspecified, Z12.4 - Encounter for screening for malignant neoplasm of cervix, Z30.09 - Encounter for other general counseling and advice on contraception Surgical Today N93.9 - Abnormal uterine and vaginal bleeding, unspecified AMB HCG Urine Test Today Z32.02 - Encounter for test, result negative Coding Level of Care Code Est Pt Level 3 (19564) Diagnoses Abnormal uterine bleeding (AUB) N93.9 Counseling for control, oral contraceptives Z30.09 Screening for cervical cancer Z12.4 CPT Codes Endometrial Biopsy - CPT: 88446-[id number] Biopsy ([id number])
[2023-04-15 11:07] VITALS: BP 166/102; BMI 31.3
== END 2023-04-15 13:13 | disposition home or self-care (01) ==
LOC: HO.HWSM 10:41
PROVIDERS: PCP Family Medicine; Visit Provider Advanced Practice Midwife
DX: N93.9 Abnormal uterine and vaginal bleeding, unspecified (principal); Z30.09 Encounter for other general counseling and advice on contraception
CPT/HCPCS: 58100; 99213

== ENCOUNTER 2023-04-15 10:41 | Outpatient (REF) | payer OTHER, SELFPAY | END 2023-04-15 10:42 | disposition home or self-care (01) | LOC: HO.LNP 10:41 | PROVIDERS: PCP Family Medicine; Visit Provider Advanced Practice Midwife | DX: N93.9 Abnormal uterine and vaginal bleeding, unspecified (principal) | CPT/HCPCS: 58100; 88305 ==

== ENCOUNTER 2023-04-17 15:59 | Outpatient (AMB) | payer OTHER, SELFPAY ==
--- NOTE | 2023-04-17 16:00 | A.OFFVIS_ITS ---
Intake Intake Visit Reasons: EMB result Final Inspector Balance Wheel Required: No Allergies amoxicillin [From Augmentin] Adverse Reaction (Intermediate, Verified 04/17/23 16:00) vomiting clavulanic acid [From Augmentin] Adverse Reaction (Intermediate, Verified 04/17/23 16:00) vomiting Doxycycline (Rosacea) Allergy (Unknown, Uncoded 04/17/23 16:00) vomiting Medication List - Last Reconciled 04/17/23 by Lynn Juarez CNM citalopram 10 mg PO DAILY levothyroxine 50 mcg PO QAM liothyronine 5 mcg PO DAILY naltrexone 3.5 mg PO DAILY norethindrone (contraceptive) 0.35 mg PO DAILY 84 days Post menopausal: No Patient : No HPI EMB result HPI Details Is a tele visit to discuss patient's endometrial biopsy results endometrial biopsy had been done 2 days ago and the patient was extremely anxious to get the results as soon as they would come in. [facility] Medical History Vitamin D deficiency Hypoglycemia Hypothyroidism Surgical History No history of previous surgery Family History Mother Family history of thyroid problem Father Type 1 diabetes Maternal Grandfather Type 2 diabetes mellitus Maternal Grandmother Family history of thyroid problem Social History Household Members: Spouse and Children Housing: House Alcohol intake: never Patient Tobacco Use Status: Never used Tobacco e-Cigarette/Vaping Use: Never Used Second Hand Smoke Exposure: No Patient : No service: No Current occupational exposures/hazards: No Gender identity: Female Cognitive needs: No Hearing needs: No Vision needs: No Female Reproductive History Menstrual Age of Menarche: 12 control method: none Results Reviewed Results Reviewed: Name: Negar Elias Age/Sex: 42/F Attending: Lynn Juarez CNM : 1980 Submitted by: Lynn Juarez CNM Copies to: Geoffrey Zhou MD MR #: [id number] Status: DEP REF Collected: 04/15/23 Location: [facility] Received: 04/16/23 Diagnosis Endometrium, biopsy: Superficial fragments of benign inactive endometrium, endocervical glandular epithelium, and abundant blood and mucus; no atypia or carcinoma. Clinical History AUB Microscopic Description Microscopic sections reviewed. Material Received EMB Gross Description Received in formalin labeled ?EMB? is a 1.5 x 1.5 x 0.4 cm aggregate of predominantly mucus and blood and threads of red-maroon tissue, submitted in toto in a cassette labeled A. CEDS Copies To Geoffrey Zhou MD [address] [facility]. [place], [place] [id number] Lynn Juarez [address] Coburn [address] [place] [id number] NOTE: Unless otherwise stated, all tissue is formalin-fixed and paraffin- embedded. Some or all of the immunohistochemical tests reported herein may have been developed and their performance characteristics determined by [facility]. They have not been cleared or approved by the U.S. Food and Drug Administration (FDA). However, the FDA has determined that such clearance or approval is not necessary. This laboratory is certified under the Clinical Laboratory Improvement Amendments of 1988 (CLIA) as qualified to perform high complexity clinical laboratory testing. Electronically Signed By: Kerry Silva 04/17/23 3729 Patient: Negar Elias Age/Sex: 42/F MR#: [id number] Page 1 of 1 Patient: Negar Elias MR#: [id number] : 1980 Acct:[id number] Age/Sex: 42 / F ADM Date: 03/08/23 Loc: HO.HMGCX Attending Dr: Lynn Juarez CNM Ordering Physician: Lynn Juarez CNM Date of Service: 03/08/23 Procedure(s): US pelvic and transvaginal Accession Number(s): [id number] cc: Geoffrey Zhou MD; Lynn Juarez CNM~ EXAMINATION: US PELVIS CLINICAL INFORMATION: Pain LMP 02/21/2023 COMPARISON: None available. TECHNIQUE: Ultrasound of the pelvis is performed using both transabdominal and transvaginal transducers along with Doppler. Transvaginal imaging is performed due to inadequate visualization transabdominally. FINDINGS: Uterus: The uterus is anteverted and measures 8.3 x 4.5 x 5.0 cm. The uterine volume measured 5.0 cm The double wall endometrial thickness is 0.6 mm. The uterus is smooth in contour and has normal myometrial echogenicity. No visible fibroid. Adnexa: There is no pelvic ascites or fluid collection. Right ovary measures 3.4 x 1.9 x 2.3 cm. 8.0 cm volume of the right ovary and there is 1.4 x 0.7 x 1.5 cm cyst Left ovary measures 4.4 x 3.4 x 3.7 cm. With a volume of left ovary measured 29 mL and there is 2.5 x 2.3 x 2.3 cm cyst. There is trace of fluid in cul-de-sac US/US pelvic and transvaginal IMPRESSION: Bilateral ovarian cysts. Trace of fluid in cul-de-sac. Dictated By: Sierra Prado MD Signed By: <Electronically signed by Sierra Prado MD in OV> 03/13/23 1638 DD/ 1602 TD/TT: Photoengraving Supervisor: Assessment & Plan Assessment & Plan (1) Abnormal uterine bleeding (AUB): Code(s): N93.9 - Abnormal uterine and vaginal bleeding, unspecified (2) Screening for cervical cancer: Comment: 06/28/20 pap= neg w neg HPV, Code(s): Z12.4 - Encounter for screening for malignant neoplasm of cervix (3) Counseling for control, oral contraceptives: Comment: is continuing on norethindrone 0.35 mg q.day. Code(s): Z30.09 - Encounter for other general counseling and advice on contraception (4) Ovarian cyst: Code(s): N83.209 - Unspecified ovarian cyst, unspecified side Plan I reviewed the biopsy results with her and again reviewed the ultrasound with her. Discussed options of not doing anything and continuing on the norethindrone only control pills as she has versus considering a Mirena IU S to help prevent further episodes of abnormal bleeding. Alternatively having a more in-depth this discussion of any other possible concerns with Dr. Ramirez. She is interested in that. She will be making a follow-up appointment with Dr. Ramirez and I asked her to call tomorrow if no would niece called her to make this appointment already. Telehealth Telehealth Location of provider rendering services: practice address Location of patient: address on file Patient Identification confirmed using: Name, : Yes Telehealth method: voice only Patient verbally consented to treatment: Yes Patient verbally consented to billing insurance company: Yes Patient informed of any privacy concerns related to visit: Yes Minutes spent on Phone/Video with Pt.: 8 Coding Level of Care Code Tele Est Pt Level 3 (39297) Diagnoses Abnormal uterine bleeding (AUB) N93.9 Screening for cervical cancer Z12.4 Counseling for control, oral contraceptives Z30.09 Ovarian cyst N83.209 Time Spent (min) 15 Comment 2cr/8 speaking and making plan w pt/5 charting=15
== END 2023-04-17 16:01 | disposition home or self-care (01) ==
LOC: HO.HWSM 15:59
PROVIDERS: PCP Family Medicine; Visit Provider Advanced Practice Midwife
DX: N93.9 Abnormal uterine and vaginal bleeding, unspecified (principal); N83.201 Unspecified ovarian cyst, right side; N83.202 Unspecified ovarian cyst, left side; Z30.09 Encounter for other general counseling and advice on contraception
CPT/HCPCS: 99213

== ENCOUNTER → 2023-04-17 15:59 | Outpatient (BNVA) | payer OTHER, SELFPAY | PROVIDERS: PCP Family Medicine; Visit Provider Advanced Practice Midwife ==

== ENCOUNTER 2023-05-27 11:50 | Outpatient (AMB) | payer OTHER, SELFPAY ==
--- NOTE | 2023-05-27 11:53 | MHC.OFFVIS ---
Intake Vital Signs 05/27/23 11:54 Height 5 ft 2 in Weight 169 lb 12.095 oz BMI 31.0 BP 150/92 H Intake Visit Reasons: consult per danika TODD Associate Programmer Analyst Required: No Information Interpreted: non-clinical & clinical Art Therapy Certified Supervisor: Art Therapy Certified Supervisor Present (Rika Almaraz MELISSA) Accompanied by: Spouse Allergies amoxicillin [From Augmentin] Adverse Reaction (Intermediate, Verified 05/27/23 12:01) vomiting clavulanic acid [From Augmentin] Adverse Reaction (Intermediate, Verified 05/27/23 12:01) vomiting Doxycycline (Rosacea) Allergy (Unknown, Uncoded 05/27/23 12:01) vomiting Is last menstrual period known: Yes Last menstrual period: 05/01/23 HPI HPI Comments History of Present Illness Details The patient is presenting referred from Danika Juarez CNM to discuss the results of her abnormal uterine bleeding workup and options of treatment. The following workup was done.: H&H= 12.8/39.3 TSH, free T3/free T4, GC and chlamydia were negative. Endometrial biopsy pathology showed no evidence of hyperplasia and/or malignancy. Co testing was done in 06/29 was negative. Mammogram BI-RADS 1 in 03/31 was negative. Pelvic ultrasound showed the following: Uterus: The uterus is anteverted and measures 8.3 x 4.5 x 5.0 cm. The uterine volume measured 5.0 cm The double wall endometrial thickness is 0.6 mm. The uterus is smooth in contour and has normal myometrial echogenicity. No visible fibroid. Adnexa: There is no pelvic ascites or fluid collection. Right ovary measures 3.4 x 1.9 x 2.3 cm. 8.0 cm volume of the right ovary and there is 1.4 x 0.7 x 1.5 cm cyst Left ovary measures 4.4 x 3.4 x 3.7 cm. With a volume of left ovary measured 29 mL and there is 2.5 x 2.3 x 2.3 cm cyst. There is trace of fluid in cul-de-sac [facility] Medical History Vitamin D deficiency Hypoglycemia Hypothyroidism Surgical History No history of previous surgery Family History Mother Family history of thyroid problem Father Type 1 diabetes Maternal Grandfather Type 2 diabetes mellitus Maternal Grandmother Family history of thyroid problem Social History Household Members: Spouse and Children Housing: House Alcohol intake: never Patient Tobacco Use Status: Never used Tobacco e-Cigarette/Vaping Use: Never Used Second Hand Smoke Exposure: No service: No Current occupational exposures/hazards: No Gender identity: Female Cognitive needs: No Hearing needs: No Vision needs: No Female Reproductive History Menstrual Age of Menarche: 12 Date of last menstrual period: 05/01/23 control method: pills Review of Systems Const All systems reviewed & are unremarkable except as noted in HPI and below Reports as per HPI and Reports no additional complaints GI Reports no additional complaints Reports no additional complaints Physical Exam Vital Signs: Last Vital Signs BP 150/92 H 05/27/23 11:54 BMI result Body Mass Index 31.0 Results AMB Test Urine AMB Test Urine Negative Last Edit by Rika Almaraz CMA on 05/27/23 12:04 Assessment & Plan Assessment & Plan (1) Abnormal uterine bleeding (AUB): Code(s): N93.9 - Abnormal uterine and vaginal bleeding, unspecified Plan: Discussed with the patient the results of the work up done and options of treatment including Lysteda, control pills, Mirena IUD, endometrial ablation and hysterectomy. All pros, cons, risks and benefits if each option was discussed with the patient and the patient decided to go ahead with Mirena IUD so a more detailed discussion about it was conducted including mechanism of action, risks (uterine perforation, infection, injury to bladder, bowel, displacement, and others) benefits (hypo menorrhea, amenorrhea, ...). GC/CT were taken and the patient was instructed to schedule Mirena IUD insertion on day 1-5 of next cycle . All questions answered, the patient verbalized understanding Orders: Orders AMB HCG Urine Test Today Z32.02 - Encounter for test, result negative Coding Level of Care Code Est Pt Level 3 (61072) Diagnoses Abnormal uterine bleeding (AUB) N93.9
[2023-05-27 11:54] VITALS: BP 150/92; BMI 31.0
== END 2023-05-27 12:57 | disposition home or self-care (01) ==
LOC: HO.HWS 11:50
PROVIDERS: PCP Family Medicine; Visit Provider Obstetrics & Gynecology
DX: N93.9 Abnormal uterine and vaginal bleeding, unspecified (principal); Z32.02 Encounter for pregnancy test, result negative
CPT/HCPCS: 99213

== ENCOUNTER → 2023-05-27 11:50 | Outpatient (BNVA) | payer OTHER, SELFPAY | PROVIDERS: PCP Family Medicine; Visit Provider Obstetrics & Gynecology | DX: N93.9 Abnormal uterine and vaginal bleeding, unspecified (principal) | CPT/HCPCS: 81025 ==

== ENCOUNTER 2023-05-30 08:24 | Outpatient (AMB) | payer OTHER, SELFPAY ==
--- NOTE | 2023-05-30 08:45 | A.OFFVIS_ITS ---
Intake Vital Signs 05/30/23 09:02 Height 5 ft 2 in Weight 169 lb 12.095 oz BMI 31.0 BP 120/72 Intake Visit Reasons: IUD insertion Hospice Volunteer Required: No Information Interpreted: non-clinical & clinical Fire Protection Inspector: Fire Protection Inspector Present (Rika TORRES) Accompanied by: Self / Same As Patient Allergies amoxicillin [From Augmentin] Adverse Reaction (Intermediate, Verified 05/30/23 09:03) vomiting clavulanic acid [From Augmentin] Adverse Reaction (Intermediate, Verified 05/30/23 09:03) vomiting Doxycycline (Rosacea) Allergy (Unknown, Uncoded 05/30/23 09:03) vomiting Is last menstrual period known: Yes Last menstrual period: 05/28/23 HPI HPI Comments History of Present Illness Details Presenting for Mirena IUD insertion [facility] Medical History Vitamin D deficiency Hypoglycemia Hypothyroidism Surgical History No history of previous surgery Family History Mother Family history of thyroid problem Father Type 1 diabetes Maternal Grandfather Type 2 diabetes mellitus Maternal Grandmother Family history of thyroid problem Social History Household Members: Spouse and Children Housing: House Alcohol intake: never Patient Tobacco Use Status: Never used Tobacco e-Cigarette/Vaping Use: Never Used Second Hand Smoke Exposure: No service: No Current occupational exposures/hazards: No Gender identity: Female Cognitive needs: No Hearing needs: No Vision needs: No Female Reproductive History Menstrual Age of Menarche: 12 Date of last menstrual period: 05/28/23 control method: progestin IUCD Office Procedures IUD Insert/Removal Details Details: The patient is presenting for Mirena IUD insertion Urine test was done in the office and was negative; All the contraindications were excluded. The following possible complications were discussed with the patient: Intrauterine , Ectopic , Sepsis, Pelvic Infection, Irregular Bleeding and Amenorrhea, Perforation, Expulsion, Ovarian Cysts, Breast Cancer, The following adverse effects were discussed with the patient: alteration of menstrual bleeding pattern, including: unscheduled uterine bleeding decreased uterine bleeding increased scheduled uterine bleeding female genital tract bleeding ,amenorrhea , genital discharge , vulvovaginitis , breast pain , benign ovarian cyst and associated complications , dysmenorrhea , Gastrointestinal disorders abdominal/pelvic pain, headache/migraine , back pain , acne , depression Alternative options were discussed with the patient including but not limited: control pills, patch, NuvaRing, Depo-medroxyprogesterone acetate, Nexplanon, copper IUD, sterilization, vasectomy, others The procedure was explained in detail to patient , at the end patient signed the informed consent obtained. A no touch technique was used throughout the procedure. A speculum was placed into vagina and cervix was cleaned with betadine). A tenaculum was placed. A plastic sound was advanced through the external and internal os until it reached the fundus of the uterus, the depth was 8 cm. The sound was then withdrawn. The IUD was loaded in a sterile manner and advanced into position. The string was visualized and cut to 3 cm. Tenaculum site hemostatic. All instruments removed from vagina. Patient tolerated the procedure well. NO complications were noted. Patient was instructed to call for fever over 100.4, significant pain unrelieved by Motrin, IUD expulsion, heavy bleeding, or abnormal discharge. In addition, the following clinical considerations were discussed with the patient to call for removal: A stroke or heart attack ,Very severe or migraine headaches ,Unexplained fever ,Yellowing of the skin or whites of the eyes, as these may be signs of serious liver problems , or suspected , Pelvic pain or pain during sex ,HIV positive seroconversion in herself or her partner , Possible exposure to sexually transmitted infections Unusual vaginal discharge or genital sores , severe vaginal bleeding or bleeding that lasts a long time, or if she misses a menstrual period, Inability to feel Mirena's threads Counseled the patient that the IUD does not protect against STI's, recommended use of condoms for the first 7 days post insertion and explained to the patient that condoms are recommended for patients at risk for sexually transmitted infections. In for the patient that Mirena IUD is FDA approved for 8 years for contraception for 5 years for the treatment of heavy menses Instructed the patient to schedule a Follow up appointment in 4 to 6 weeks following insertion. This note was generated with a voice recognition program. Some errors may have been overlooked during the review of this note. Sometimes these errors may affect the content or meaning of a given sentence. 41618-IIJ Insertion Procedure code (CPT) selection complete Office Meds Mirena 21 mcg/24 hours (8 yrs) 52 mg intrauterine device Performing Provider: Wilfredo Ramirez MD Performing Location: [facility] Documented (not given) by: Wilfredo Ramirez MD on 05/30/23 09:03 Dose Route Admin Location Dispensed Lot Number Expiration Date NDC Flood Control Engineer 1 device intrauterine ea Assessment & Plan Assessment & Plan (1) Encounter for IUD insertion: Code(s): Z30.430 - Encounter for insertion of intrauterine contraceptive device Plan: Mirena IUD inserted, see procedure note Instructions given the patient to discontinue norethindrone Orders: Orders AMB IUD Insertion/Removal - Practice Supplied Today Z30.430 - Encounter for insertion of intrauterine contraceptive device Medications: New Mirena (levonorgestrel) 1 device intrauterine ONCE 1 ea 0RF Abnormal uterine bleeding NS Z30.430 - Encounter for insertion of intrauterine contraceptive device Discontinued norethindrone (contraceptive) Discontinued Reason: Doctor's Order 0.35 mg PO DAILY 84 days 84 tabs 4RF Coding Level of Care Code Procedure Only Diagnoses Encounter for IUD insertion Z30.430 CPT Codes Details - CPT: 25094-LUM Insertion ([id number])
[2023-05-30 09:02] VITALS: BP 120/72; BMI 31.0
== END 2023-05-30 09:06 | disposition home or self-care (01) ==
LOC: HO.HWS 08:24
PROVIDERS: PCP Family Medicine; Visit Provider Obstetrics & Gynecology
DX: Z30.430 Encounter for insertion of intrauterine contraceptive device (principal); Z32.02 Encounter for pregnancy test, result negative
CPT/HCPCS: 58300

== ENCOUNTER → 2023-05-30 08:24 | Outpatient (BNVA) | payer OTHER, SELFPAY | PROVIDERS: PCP Family Medicine; Visit Provider Obstetrics & Gynecology | DX: Z30.430 Encounter for insertion of intrauterine contraceptive device (principal) | CPT/HCPCS: 58300; 81025; J7298 ==

== ENCOUNTER 2023-07-15 14:59 | Outpatient (AMB) | payer OTHER, SELFPAY ==
[2023-07-15 15:06] VITALS: BMI 30.9
--- NOTE | 2023-07-15 15:06 | A.OFFVIS_ITS ---
Vital Signs 07/15/23 15:06 Height 5 ft 2 in Weight 169 lb BMI 30.9 Intake Visit Reasons: 4-6 IUD check Diversified Crops Farmer: Diversified Crops Farmer Present (Rika) Allergies amoxicillin [From Augmentin] Adverse Reaction (Intermediate, Verified 07/15/23 15:06) vomiting clavulanic acid [From Augmentin] Adverse Reaction (Intermediate, Verified 07/15/23 15:06) vomiting Doxycycline (Rosacea) Allergy (Unknown, Uncoded 05/30/23 09:03) vomiting HPI Comments Details: The patient is presenting for IUD check after 1 st period following IUD insertion. The patient has no complaints except for continue spotting [facility] Medical History Vitamin D deficiency Hypoglycemia Hypothyroidism Surgical History No history of previous surgery Family History Mother Family history of thyroid problem Father Type 1 diabetes Maternal Grandfather Type 2 diabetes mellitus Maternal Grandmother Family history of thyroid problem Social History Household Members: Spouse and Children Housing: House Alcohol intake: never Patient Tobacco Use Status: Never used Tobacco e-Cigarette/Vaping Use: Never Used Second Hand Smoke Exposure: No service: No Current occupational exposures/hazards: No Gender identity: Female Cognitive needs: No Hearing needs: No Vision needs: No Female Reproductive History Menstrual Age of Menarche: 12 Review of Systems Const All systems reviewed & are unremarkable except as noted in HPI and below Physical Exam Vital Signs: BMI result Body Mass Index 30.9 General: Yes no CVA tenderness External Female Exam: normal external appearance and normal appearance of the urethra Speculum Exam - Vagina: normal appearance of the vagina, normal palpation, no lesions and no masses Speculum Exam - Cervix: normal appearance of the cervix, normal palpation, no lesions, no masses, nontender and Other cervical findings present (IUD thread in place) Bimanual exam- vagina & uterus: normal bimanual exam, normal palpation, uterine size normal, normal palpation, uterine shape normal, No Cervical tenderness present and non-tender Bimanual Exam- Adnexa, other: normal adnexae Back/Spine/Pelvis Back: no CVA tenderness Results AMB Test Urine AMB Test Urine Negative Last Edit by MELISSA Quintana on 07/15/23 15:12 Results Reviewed Results Reviewed: Laboratory Last Values Tst Clinic Negative 07/15/23 15:12 Assessment & Plan Assessment & Plan (1) IUD check up: Code(s): Z30.431 - Encounter for routine checking of intrauterine contraceptive device Category: Medical Plan: UPT done in the office was negative. Discussed with the patient the finding on physical exam, IUD string in place, the patient was reassured. Instructions given to patient to call in case of temperature above 100.4, severe cramping/pelvic pain, abnormal discharge or persistence of abnormal uterine bleeding for more than 2-3 months or if she misses her menstrual cycle. Otherwise follow-up at her annual exam appointment. All questions answered, the patient verbalized understanding. Orders: Orders AMB HCG Urine Test Today Z32.02 - Encounter for test, result negative Coding Level of Care Code Est Pt Level 3 (44730) Diagnoses IUD check up Z30.431
== END 2023-07-15 16:03 | disposition home or self-care (01) ==
PROVIDERS: PCP Family Medicine; Visit Provider Obstetrics & Gynecology
DX: Z30.431 Encounter for routine checking of intrauterine contraceptive device (principal); Z32.02 Encounter for pregnancy test, result negative
CPT/HCPCS: 99213

== ENCOUNTER → 2023-07-15 14:59 | Outpatient (BNVA) | payer OTHER, SELFPAY | PROVIDERS: PCP Family Medicine; Visit Provider Obstetrics & Gynecology | DX: Z30.431 Encounter for routine checking of intrauterine contraceptive device (principal) | CPT/HCPCS: 81025 ==

== ENCOUNTER 2023-11-25 15:22 | Outpatient (AMB) | payer BC, SELFPAY ==
--- NOTE | 2023-11-25 15:33 | AM.OFFWIN_ITS ---
Intake Vital Signs 11/25/23 15:34 Height 5 ft 2 in Weight 176 lb BMI 32.2 BP 128/80 Blood Pressure Location Rt brachial Position Sitting Pulse 67 Pulse Source Pulse Oximeter Temp 98.4 F Temp Source Oral Pulse Oximetry (%) 98 Oxygen Delivery Method Room Air Intake Visit Reasons: EP poison evita? Intake Note: pt c/o rashes all over. ? Poison Evita. Started labor day weekend Patient Tobacco Use Status: Never used Tobacco Allergies amoxicillin [From Augmentin] Adverse Reaction (Intermediate, Verified 11/25/23 15:34) vomiting clavulanic acid [From Augmentin] Adverse Reaction (Intermediate, Verified 11/25/23 15:34) vomiting Doxycycline (Rosacea) Allergy (Unknown, Uncoded 11/25/23 15:34) vomiting Do you need a note to return to daycare/school/sports/work: No HPI EP poison evita? HPI Details This note is constructed using voice recognition software. While every effort has been made to ensure accuracy, safety admin assistant errors may have been included. The patient is a 42 year old female who presents to the clinic today with rash for the past 2 weeks. She notes that she had been doing some gardening and developed a rash to her bilateral forearms, which was after she had come in contact with poison evita. She had been treating this with [id number] hydrocortisone but it was not improving, so she called her primary care office to attempt to get a prescription or an evaluation, but was unable to be seen. She then contacted a virtual telehealth for evaluation and was prescribed triamcinolone. She has since developed additional lesions to her legs which she also attributes to poison evita. She has no fever, chills, cough, shortness of breath. She is washed all her land and including her clothes and bed sheets and towels since this exposure. [facility] Medical History Vitamin D deficiency Hypoglycemia Hypothyroidism Surgical History No history of previous surgery Family History Mother Family history of thyroid problem Father Type 1 diabetes Maternal Grandfather Type 2 diabetes mellitus Maternal Grandmother Family history of thyroid problem Social History Household Members: Spouse and Children Housing: House Alcohol intake: never Patient Tobacco Use Status: Never used Tobacco e-Cigarette/Vaping Use: Never Used Second Hand Smoke Exposure: No service: No Current occupational exposures/hazards: No Gender identity: Female Cognitive needs: No Hearing needs: No Vision needs: No Female Reproductive History Menstrual Age of Menarche: 12 Review of Systems Const All systems reviewed & are unremarkable except as noted in HPI and below Physical Exam Vital Signs: Last Vital Signs Temp 98.4 F 11/25/23 15:34 Pulse 67 11/25/23 15:34 BP 128/80 11/25/23 15:34 Pulse Ox 98 11/25/23 15:34 Oxygen Delivery Method Room Air 11/25/23 15:34 BMI result Body Mass Index 32.2 Const General: cooperative, healthy appearing, comfortable and no acute distress Orientation/consciousness: patient oriented x3 Limitations: no limitations HEENT Head: Yes normal to inspection Eyes General: appearance normal, both eyes and all related structures Resp Effort & Inspection: normal respiratory effort and able to speak in complete sentences Skin Other: A streaky, linear maculopapular rash with crusted lesions on bilateral forearms, abdomen, and right leg Neuro General: patient oriented x3 Assessment & Plan Assessment & Plan (1) Poison evita dermatitis: Code(s): L23.7 - Allergic contact dermatitis due to plants, except food Plan: Due to widespread symptoms and recurrent lesions, we will try systemic prednisone for symptomatic management. Advised patient to follow up with worsening or failure to resolve. Reviewed side effects associated with the use of prednisone. Plan See above for full details and plan. Medications: New prednisone 5 tablets daily for 2 days, then 4 tablets daily for 2 days, then 3 tablets daily for 2 days, then 2 tablets daily for 2 days, then 1 tablet daily for 2 days. 10 mg PO DIRECTED 30 tabs 0RF Coding Level of Care Code Est Pt Level 3 (55310) Diagnoses Poison evita dermatitis L23.7
[2023-11-25 15:34] VITALS: BP 128/80; PULSE 67; TEMP 36.9; O2SAT 98; BMI 32.2
== END 2023-11-25 16:32 | disposition home or self-care (01) ==
PROVIDERS: PCP Family Medicine; Visit Provider Registered Nurse
DX: L23.7 Allergic contact dermatitis due to plants, except food (principal)

== ENCOUNTER → 2023-11-25 15:22 | Outpatient (BNVA) | payer BC, SELFPAY | PROVIDERS: PCP Family Medicine | DX: L23.7 Allergic contact dermatitis due to plants, except food (principal) ==

== ENCOUNTER 2024-03-09 10:22 | Outpatient (AMB) | payer BC, SELFPAY ==
[2024-03-09 10:27] VITALS: BP 122/70; BMI 32.0
--- NOTE | 2024-03-09 10:27 | A.OFFVIS_ITS ---
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 Jinriksha Driver Required: No Jinriksha Driver Services: Jinriksha Driver Present Information Interpreted: clinical only Allergies amoxicillin [From Augmentin] Adverse Reaction (Intermediate, Verified 03/09/24 10:28) vomiting clavulanic acid [From Augmentin] Adverse Reaction (Intermediate, Verified 03/09/24 10:28) vomiting Doxycycline (Rosacea) Allergy (Unknown, Uncoded 03/09/24 10:28) vomiting Medication List - Last Reconciled 03/09/24 by Lynn Juarez CNM citalopram 10 mg PO DAILY levonorgestrel (Mirena) intrauterine levothyroxine 88 mcg PO DAILY liothyronine 5 mcg PO DAILY naltrexone 3.5 mg PO DAILY Is last menstrual period known: No (IUD) HPI HPI 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 She has no history of abnormal Pap smears. She has 2 children delivered vaginally. She had abnormal bleeding last year had an evaluation including ultrasound and endometrial biopsy which were negative. She discussed all of her alternatives Dr. Ramirez and he inserted a Mirena IU S and she has not had periods since and she is very happy with that. She started seeing a new primary care provider recently in we will be getting all her fasting blood work soon and she gets her mammograms every year and her last 1 was negative in September. 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 Tries to eat well and exercise and take care of herself. She has no worries at all about infection or anything. She has no history of abnormal Paps. [facility] Medical History Vitamin D deficiency Hypoglycemia Hypothyroidism Surgical History No history of previous surgery Family History Mother Family history of thyroid problem Father Type 1 diabetes Maternal Grandfather Type 2 diabetes mellitus Maternal Grandmother Family history of thyroid problem Social History Household Members: Spouse and Children Housing: House Alcohol intake: never Patient Tobacco Use Status: Never used Tobacco e-Cigarette/Vaping Use: Never Used Second Hand Smoke Exposure: No service: No Current occupational exposures/hazards: No Gender identity: Female Cognitive needs: No Hearing needs: No Vision needs: No Female Reproductive History Menstrual Age of Menarche: 12 Duration of menses: <3 days control method: progestin IUCD Total pregnancies: 2 Full term: 2 Number of Living Children: 2 Date of last pap smear: 06/29/20 (negative) History of abnormal pap smear: No Date of Mammogram: 04/08/20 (negative) Physical Exam Vital Signs: Last Vital Signs BP 122/70 03/09/24 10:27 BMI result Body Mass Index 32.0 Const General: healthy appearing, comfortable, no acute distress, well developed and alert Nutritional Appearance: average body habitus Orientation/consciousness: patient oriented x3 Limitations: no limitations HEENT Head: Yes normocephalic Neck Neck: Yes normal visual inspection Chest Chest palpation & inspection: normal inspection of the chest Breast/axilla inspection: normal inspection of the breasts and normal inspection of the axillae Breast/axilla palpation: normal palpation of the breasts and normal palpation of the axillae Resp Effort & Inspection: normal respiratory effort GI Inspection: Yes normal to inspection, No Abdominal wall edema and No distended Palpation (GI): Soft to palpation and nontender Other: Normal speculum and vaginal exam. Vagina pink and moist cervix multiparous with clear thickened mucus Mirena string curled in os but able to be teased out the length of 1/2-1 cm with Cytobrush cervix is very posterior long close thick mobile nontender uterus small midposition mobile nontender. bladder full. excellent tone Kegel. General: Yes bladder normal to palpation External Female Exam: normal external appearance and normal appearance of the urethra Speculum Exam - Vagina: normal appearance of the vagina, normal palpation and normal vaginal discharge Speculum Exam - Cervix: normal appearance of the cervix, normal palpation and nontender Bimanual exam- vagina & uterus: normal bimanual exam, normal palpation, uterine size normal, bladder normal to palpation, consistency normal, normal palpation, uterine mobility normal, uterine shape normal, No Cervical tenderness present, non-tender and no cervical motion tenderness Bimanual Exam- Adnexa, other: normal adnexae, no masses, normal and No adnexal tenderness Neuro General: patient oriented x3 Results Reviewed Results Reviewed: Name: Negar Elias Age/Sex: 39/F Attending: Lynn Juarez CNM : 1980 Submitted by: Lynn Juarez CNM Copies to: MR #: [id number] Status: DEP REF Collected: 06/28/20 Location: .LAB Received: 06/29/20 Interpretation Satisfactory for evaluation. Negative for intraepithelial lesion or malignancy. HPV mRNA E6/E7: NOT DETECTED This assay detects E6/E7 viral messenger RNA (mRNA) from 14 high-risk HPV types (16, 18, 31, 33, 35, 39, 45, 51, 52, 56, 58, 59, 66, 68) HPV testing performed by [facility], [place], [place]. See reference laboratory portion of the EMR for entire report. Clinical Information LMP: 06/12/20 Previous PAP test: 2016, WNL Material Received ThinPrep Cervical Electronically Signed By: Yandy Parada 07/01/20 180 The Pap Test is a screening procedure with the inherent possibility of both false negative and false positive results. Results should be interpreted in the context of historic and current clinical findings. Reliability of the Pap Test is enhanced by performing the test on a regular repetitive basis. Patient: Negar Elias Age/Sex: 39/F MR#: [id number] Page 1 of 1 Name: Negar Elias Age/Sex: 42/F Attending: Lynn Juarez CNM : 1980 Submitted by: Lynn Juarez CNM Copies to: Geoffrey Zhou MD MR #: [id number] Status: DEP REF Collected: 04/15/23 Location: [facility] Received: 04/16/23 Diagnosis Endometrium, biopsy: Superficial fragments of benign inactive endometrium, endocervical glandular epithelium, and abundant blood and mucus; no atypia or carcinoma. Clinical History AUB Microscopic Description Microscopic sections reviewed. Material Received EMB Gross Description Received in formalin labeled ?EMB? is a 1.5 x 1.5 x 0.4 cm aggregate of predominantly mucus and blood and threads of red-maroon tissue, submitted in toto in a cassette labeled A. CEDS Copies To Geoffrey Zhou MD [address], [place] [id number] Lynn Juarez CNM [address] [place] [address] Dr. Coburn [address] [place] [id number] NOTE: Unless otherwise stated, all tissue is formalin-fixed and paraffin- embedded. Some or all of the immunohistochemical tests reported herein may have been developed and their performance characteristics determined by [facility]. They have not been cleared or approved by the U.S. Food and Drug Administration (FDA). However, the FDA has determined that such clearance or approval is not necessary. This laboratory is certified under the Clinical Laboratory Improvement Amendments of 1988 (CLIA) as qualified to perform high complexity clinical laboratory testing. Electronically Signed By: Kerry Silva 04/17/23 9035 Patient: Negar Elias Age/Sex: 42/F MR#: [id number] Page 1 of 1 Assessment & Plan Assessment & Plan (1) Screening for cervical cancer: Comment: 06/28/20 pap= neg w neg HPV, Code(s): Z12.4 - Encounter for screening for malignant neoplasm of cervix Category: Medical (2) Well woman exam with routine gynecological exam: Code(s): Z01.419 - Encounter for gynecological examination (general) (routine) without abnormal findings Category: Medical (3) Abnormal uterine bleeding (AUB): Comment: Now very well controlled with Mirena IU S after negative workup. Code(s): N93.9 - Abnormal uterine and vaginal bleeding, unspecified Category: Medical (4) IUD check up: Code(s): Z30.431 - Encounter for routine checking of intrauterine contraceptive device Category: Medical (5) Breast cancer screening by mammogram: Code(s): Z12.31 - Encounter for screening mammogram for malignant neoplasm of breast Category: Medical Plan -----Discussed in this visit the following: healthy balanced diet, regular and consistent exercise, getting recommended health screens, doing the best she can for her particular health concerns, kegel exercises, pap smear screening and followup recommendations, mammography screening and SBE, normal changes in cycles in her life stage--- Reviewed her history in detail and everything in HPI she is very happy with the Mirena and it is controlling her bleeding very well. She is going to be getting her yearly exams with her primary and her yearly mammograms in the summer. Her children are doing well as well . Coding Level of Care Code Est Pt Prev Care 40-64y(63555) Diagnoses Screening for cervical cancer Z12.4 Well woman exam with routine gynecological exam Z01. Abnormal uterine bleeding (AUB) N93.9 IUD check up Z30.431 Breast cancer screening by mammogram Z.31
--- OUTSIDE RECORDS SUMMARY | 2024-03-09 10:28 | XMS_ITS | Patient Health Record ---
Author Organization [facility] Address [address] [place] [address] Care Team Providers Care Lead Embedded Software Engineer Name Role Phone SHOAIB ACKERMAN Unavailable [phone] NURY OBRIEN Unavailable [phone] ALLERGIES Allergen (clinical drug ingredient) Drug/Non Drug Allergy documented on EMR Reaction Allergy Type Onset Date Status amoxicillin / clavulanate Augmentin stomach upset Drug Allergy Active amoxicillin Amoxicillin hives Drug Allergy Act rachele doxycycline Doxycycline vomiting Drug Allergy Act rachele REASON FOR REFERRAL No Information MEDICATIONS Medication SIG (Take, Route, Frequency, Duration) Notes Start Date End Date Status Naltrex 1.5 MG Two capsules Orally daily Active Citalopram Hydrobromide 10 MG 1 tablet Orally Once a day Active Liothyronine Sodium 5 MCG 1 tablet on an empty stomach Orally Once a day Active Levothyroxine Sodium 88 MCG 1 tablet in the morning on an empty stomach Orally Once a day Active SOCIAL HISTORY Tobacco Use: Social History Observation Description Date Details (start date - stop date) Never Smoker NA - NA Sex Assigned At : Social History Observation Description Sex Assigned At Unknown Tobacco Use/Smoking Question Answer Notes Are you a nonsmoker Alcohol Screen (Audit-C) Question Answer Notes Did you have a drink containing alcohol in the p ast year? 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: None PROBLEMS Problem Type ICD Code Onset Dates Problem Status W/U Status Risk SNOMED Code Notes Problem Vitamin D deficiency, unspecified (E55.9) Active confirmed Vitamin D deficiency (52132917) Problem Encounter for screening for lipoid disorders (Z13.220) Active confirmed Lipid screening (528773626) Problem Essential hypertension (I10) Active confirmed 05827722 Problem Anxiety (F41.9) Active confirmed Anxiet y (20504359) Problem Adult general medical exam (Z00.00) Active confirmed Adult health examination (924180299) Problem Seasonal allergies (J30.2) Active confirmed Seasonal allergy (927717342) Problem Weight gain (R63.5) Active confirmed Weight gain (254120289) Problem Anemia due to vitamin B12 deficiency, unspecified B12 deficiency type (D51.9) Active confirmed Vitamin B>12< deficiency anaemia (72085784) 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 82562648 Problem Encounter for screening for endocrine disorder (Z13.29) Active confirmed Endocrine/metab olic screening (002340401) VITAL SIGNS Heart Rate 104 /min 03/05/2024 Oximetry 99 % 03/05/2024 Blood pressure diastolic 96 mm Hg 03/05/2024 Height 62 in 03/05/2024 Blood pressure systolic 142 mm Hg 03/05/2024 Weight 176.5 lbs 03/05/2024 BMI 32.28 kg/m2 03/05/2024 Encounters Encounter Location Date Provider Diagnosis [facility] [address] [place] [address] 03/05/2024 NURY OBRIEN Weight gain R63.5 ; Clifton's disease E06.3 and Essential hypertension I10 ASSESSMENTS Encounter Date Diagnosis Assessment Notes Treatment Notes Treatment Clinical Notes Section Notes 03/05/2024 Weight gain (ICD-10 - R63.5) Maria A is a pleasant 43-year-old female who presents to the office today for new patient evaluation. Patient is welcomed to the practice. Medications, medical history, allergies, surgeries, hospitalizations, family history, and social history were reviewed. Problem list updated. Cardiopulmonary and abdominal exam unremarkable. Patient will follow-up in office. All patient questions answered at this time. #Essential hypertension: Patient's blood pressure reading in office is 142/96, we will continue to monitor at patient's physical exam. Consider potential whitecoat hypertension as the patient's heart rate is 104. #Clifton's: Patient currently follows with functional medicine, she is taking liothyronine sodium 5 mcg, levothyroxine sodium 88 mcg. Obtaining TSH, T3-T4 for further evaluation. #Weight gain: Consider offering patient a weight management program, obtain fasting lab work including thyroid panel for further evaluation. Obtaining hormone panel as well as this may be contribute towards perimenopausal symptoms. All questions have been answered to patient's satisfaction. Patient verbalized understanding of diagnosis and treatments explained. Advised to call sooner prior to next visit it any questions/concerns arise. Case discussed with Mayra ISNGH who reviewed the assessment and plan. Chart, medications, labs, vital signs reviewed. Dictation was accomplished with the use of Sferra voice recognition software, which is prone to medical misidentifications and grammatical errors. This are unintentional and the practitioner does try to identify and correct these, but some could still be present. Please do not hesitate to contact practitioner for clarification. 03/05/2024 Clifton's disease (ICD-10 - E06.3) Maria A is a pleasant 43-year-old female who presents to the office today for new patient evaluation. Patient is welcomed to the practice. Medications, medical history, allergies, surgeries, hospitalizations, family history, and social history were reviewed. Problem list updated. Cardiopulmonary and abdominal exam unremarkable. Patient will follow-up in office. All patient questions answered at this time. #Essential hypertension: Patient's blood pressure reading in office is 142/96, we will continue to monitor at patient's physical exam. Consider potential whitecoat hypertension as the patient's heart rate is 104. #Clifton's: Patient currently follows with functional medicine, she is taking liothyronine sodium 5 mcg, levothyroxine sodium 88 mcg. Obtaining TSH, T3-T4 for further evaluation. #Weight gain: Consider offering patient a weight management program, obtain fasting lab work including thyroid panel for further evaluation. Obtaining hormone panel as well as this may be contribute towards perimenopausal symptoms. All questions have been answered to patient's satisfaction. Patient verbalized understanding of diagnosis and treatments explained. Advised to call sooner prior to next visit it any questions/concerns arise. Case discussed with Mayra SINGH who reviewed the assessment and plan. Chart, medications, labs, vital signs reviewed. Dictation was accomplished with the use of Sferra voice recognition software, which is prone to medical misidentifications and grammatical errors. This are unintentional and the practitioner does try to identify and correct these, but some could still be present. Please do not hesitate to contact practitioner for clarification. 03/05/2024 Essential hypertension (ICD-10 - I10) Maria A is a pleasant 43-year-old female who presents to the office today for new patient evaluation. Patient is welcomed to the practice. Medications, medical history, allergies, surgeries, hospitalizations, family history, and social history were reviewed. Problem list updated. Cardiopulmonary and abdominal exam unremarkable. Patient will follow-up in office. All patient questions answered at this time. #Essential hypertension: Patient's blood pressure reading in office is 142/96, we will continue to monitor at patient's physical exam. Consider potential whitecoat hypertension as the patient's heart rate is 104. #Clifton's: Patient currently follows with functional medicine, she is taking liothyronine sodium 5 mcg, levothyroxine sodium 88 mcg. Obtaining TSH, T3-T4 for further evaluation. #Weight gain: Consider offering patient a weight management program, obtain fasting lab work including thyroid panel for further evaluation. Obtaining hormone panel as well as this may be contribute towards perimenopausal symptoms. All questions have been answered to patient's satisfaction. Patient verbalized understanding of diagnosis and treatments explained. Advised to call sooner prior to next visit it any questions/concerns arise. Case discussed with Mayra SINGH who reviewed the assessment and plan. Chart, medications, labs, vital signs reviewed. Dictation was accomplished with the use of Sferra voice recognition software, which is prone to medical misidentifications and grammatical errors. This are unintentional and the practitioner does try to identify and correct these, but some could still be present. Please do not hesitate to contact practitioner for clarification. PLAN OF TREATMENT Pending Test Test Name Order Date LIPID PANEL, STANDARD 03/05/2024 FSH AND LH 03/05/2024 COMPREHENSIVE METABOLIC PANEL 03/05/2024 BASIC METABOLIC PANEL 03/05/2024 CBC (INCLUDES DIFF/PLT) 03/05/2024 PROGESTERONE 03/05/2024 T4, FREE 03/05/2024 CORTISOL, TOTAL 03/05/2024 TSH 03/05/2024 T3, FREE 03/05/2024 VITAMIN D,25-OH,TOTAL,IA 03/05/2024 ESTROGEN, TOTAL, SERUM 03/05/2024 TESTOSTERONE, FREE (DIALYSIS) AND TOTAL, MS 03/05/2024 Next Appt Details Provider Name:NURY OBRIEN, 03:15:00 PM, [address], [place], [address], Insurance Providers Payer Name Payer Address Payer Phone Subscriber Number Group Number Insured Name Patient Relationship to Insured Coverage Start Date Coverage End Date [facility] [address] [place] [address] [id number] Aga Eliasia Self - patient is the insured MEDICAL (GENERAL) HISTORY Medical History History ICD Code 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
--- OUTSIDE RECORDS SUMMARY | 2024-03-09 10:28 | XMS_ITS ---
Author Organization [facility] Address [address] [place] [address] Care Team Providers Care Meteorologist Liaison Name Role Phone SHOAIB ACKERMAN Unavailable [phone] MICAHNURY Malone Unavailable [phone] ALLERGIES Allergen (clinical drug ingredient) Drug/Non Drug Allergy documented on EMR Reaction Allergy Type Onset Date Status amoxicillin / clavulanate Augmentin stomach upset Drug Allergy Active amoxicillin Amoxicillin hives Drug Allergy Act rachele doxycycline Doxycycline vomiting Drug Allergy Act rachele REASON FOR VISIT pt here for ORDER ENTRY SPECIALIST visit, stated she had mammo screening in september MEDICATIONS Medication SIG (Take, Route, Frequency, Duration) [...] W/U Status Risk SNOMED Code Notes 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 17764759 Problem Essential hypertension (I10) Active confirmed 48280415 Problem Anxiety (F41.9) Active confirmed Anxiet y (64573119) Problem Seasonal allergies (J30.2) Active confirmed Seasonal allergy (522571231) VITAL SIGNS Heart Rate 104 /min 03/05/2024 Blood pressure systolic 142 mm Hg 03/05/20 24 Blood pressure diastolic 96 mm Hg 024 Weight 176.5 lbs 03/05/2024 BMI 32.28 kg/m2 03/05/2024 Height 62 in 03/05/2024 Oximetry 99 % 03/05/2024 Encounters Encounter Location Date Provider Diagnosis [facility] [address] [place] [address] 03/05/2024 NURY OBRIEN Weight gain R63.5 ; [...] Dictation was accomplished with the use of Optisense voice recognition software, which is prone to [...] Dictation was accomplished with the use of Optisense voice recognition software, which is prone to [...] Dictation was accomplished with the use of Optisense voice recognition software, which is prone to [...] Name:NURY OBRIEN, 03:15:00 PM, [address], [place], [address], Progress Notes * Negar SCOTTDOB:1980 ([age] yo F)Acc No.[id number]:03/05/2024 Progress Notes Patient:??Negar SCOTT Provider:??NURY OBRIEN PA-C :1980?Age:43 Y?Sex:Fe male Date:03/05/2024 Address: [address] [place], [place] Subjective: * Chief Complaints: * ?1. pt here for ORDER ENTRY SPECIALIST sakshi chatman, stated she had mammo screening in september. * HPI: ?Constitutional:? Negar is a pleasant 43-year-old female who presents as a new patient. She states that she was previously being followed by [facility] PCP, states that her last physical exam along with lab work was around 2 years ago. As per specialist the patient states that she does follow with functional medicine for Clifton's, dermatology occasionally for skin concerns. ?Mammogram: September, [facility] ?Dentist: 6 m ?Eye Doctor: Yearly ?Flu: Declines ?Tdap: Unsure ?COVID: Three shots. * ROS:?Constitutional: Patient denies any excessive fatigue with exercise, no weight loss, no fever and no night sweats Eyes: No eye discharge, no itching, no redness. Advised the significance of regular eye exams to screen for glaucoma and other eye problems Ear nose throat: No sore throat, postnasal drip, runny nose, Sneezing Cardiovascular: No chest pain, no shortness of breath, no dyspnea on exertion, no PND, no orthopnea, no irregular pulse Respiratory: No chronic cough, no hemoptysis, no sputum, no wheezing GI, no diarrhea, no constipation no blood in the stools, no pain associated with eating, no indigestion Genitourinary: No painful urination no hesitancy no blood in the urine Musculoskeletal, no limitations to walking and running, no joint deformity, no joint stiffness, no chronic back pain, no noise with joint movement Integumentary, no new skin rash. No new changes in skin moles Neurological: No history of seizures, memory loss, No language dysfunction, No inability to concentrate, no localized weakness, no sensation loss, no confusion Psychiatric: No depression, no suicidal thoughts, no anxiety Endocrine: No polyuria no polyphagia or polydipsia, no heat intolerance no cold intolerance Hematological: No easy bruising or Lymph node swelling. * Medical History:??Clifton' s disease, Anxiety, Seasonal allergies, Headache. 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 * Surgical History:??C section , c section . * Hospitalization/Major Diagno stic Procedure:??Children . * Family History:??Father: ali ve 69 yrs, diabetes mellitus.??Mother: alive 67 yrs, thyroid disease.??1 sister(s) . 2 son(s) . .?? fx of cancer, heart disease, diabetes, mental disease two children No family hx of colon or breast cancer Children: 2 children, 18 and 16 Spouse is healthy. 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 * Medications:??Taking Naltrex 1.5 MG Capsule Two capsules Orally daily , Taking Citalopram Hydrobromide 10 MG Tablet 1 tablet Orally Once a day , Taking Liothyronine Sodium 5 MCG Tablet 1 tablet on an empty stomach Orally Once a day , Taking Levothyroxine Sodium 88 MCG Tablet 1 tablet in the morning on an empty stomach Orally Once a day , Medication List reviewed and reconciled with the patient * Allergies:??Amoxicillin: hiv es - Allergy, Doxycycline: vomiting - Allergy, Augmentin: stomach upset - Allergy. Objective: * Vitals:??HR:104/min, BP:142/ 96mm Hg, Wt:176.5lbs, BMI:32.28Index, Ht: 62 in, Oxygen sat %:99%. * Physical Examination:?General: Age appropriate, well-appearing female in no acute distress, speaking in full sentences without visible respiratory distress. Well groomed, well developed. Alert, interactive. ?Skin: Warm, dry without new lesions ?HEENT: Normocephalic/atraumatic. ?Cardiac: Regular rate and rhythm without murmurs, rubs, or gallops. 2+ radial pulses bilaterally. ?Abdomen: Non tender to palpation, normoactive bowel sounds appreciated ?Lungs: Equal chest rise and fall bilaterally. ?Neuro: CN II-XII grossly intact. Steady gait with non-assisted ambulation observed. ?Psych: Stable mood and affect. Assessment: * Assessment: 1.??Weight gain - R63.5 (Asmita danika)??2.??Clifton's disease - E06.3??3.??Essential hypertension - I10?? Maria A is a pleasant 43-year- old female who presents to the office today [...] it any questions/concerns arise. Case discussed with Myara SINGH who reviewed the assessment and plan. Chart, medications, labs, vital signs reviewed. Dictation was accomplished with the use of Optisense voice recognition software, which is prone to medical misidentifications and grammatical errors. This are unintentional and the practitioner does try to identify and correct these, but some could still be present. Please do not hesitate to contact practitioner for clarification. Plan: * Treatment: * Labs:?? * ?Lab: COMPREHENSIVE METABOLIC PANEL ?Lab: VITAMIN D,25- OH,TOTAL,IA ?Lab: T3, FREE ?Lab: TSH ?Lab: LIPID PANEL, STANDARD ?Lab: BASIC METABOL IC PANEL ?Lab: CBC (INCLUDES DIFF/PLT) ?Lab: T4, FREE * Images: Billing Information: * Visit Code:?? 29974 Office Visit, New Pt., Level 4. * Procedure Codes:?? * Sign off status: Pending * Provider:??NURY OBRIEN PA-C Date:??03/05 History and Physical Notes * HPI (History of Present Illness) Category Sub-Category Detail Notes Category Not es Constitutional Negar is a pleasant 43-year-old female who presents as a new patient. She states that she was previously being followed by [facility] PCP, states that her last physical exam along with lab work was around 2 years ago. As per specialist the patient states that she does follow with functional medicine for Clifton's, dermatology occasionally for skin concerns. Mammogram: September, [facility] Dentist: 6 m Eye Doctor: Yearly Flu: Declines Tdap: Unsure COVID: Three shots Physical Examination Category Sub-Category Detail Notes Section Note s General: Age appropriate, well-appearing female in no acute distress, speaking in full sentences without visible respiratory distress. Well groomed, well developed. Alert, interactive. Skin: Warm, dry without new lesions HEENT: Normocephalic/atraumatic. Cardiac: Regular rate and rhythm without murmurs, rubs, or gallops. 2+ radial pulses bilaterally. Abdomen: Non tender to palpation, normoactive bowel sounds appreciated Lungs: Equal chest rise and fall bilaterally. Neuro: CN II-XII grossly intact. Steady gait with non-assisted ambulation observed. Psych: Stable mood and affect.
== END 2024-03-09 11:10 | disposition home or self-care (01) ==
PROVIDERS: PCP Family Medicine; Visit Provider Advanced Practice Midwife
DX: Z01.419 Encounter for gynecological examination (general) (routine) without abnormal findings (principal); N93.9 Abnormal uterine and vaginal bleeding, unspecified
CPT/HCPCS: 99396; 99459

== ENCOUNTER → 2024-03-09 10:22 | Outpatient (BNVA) | payer BC, SELFPAY | PROVIDERS: PCP Family Medicine; Visit Provider Advanced Practice Midwife ==

== ENCOUNTER 2024-03-16 09:45 | Outpatient (REF) | payer BC, SELFPAY ==
[2024-03-16 10:19] LABS: MANUAL DIFF FLAG NO
--- OUTSIDE RECORDS SUMMARY | 2024-03-16 10:21 | XMS_ITS | Patient Health Record ---
Author Organization [facility] Address [address] [place] [address] Care Team Providers Care Pneumatic Systems Operator Name Role Phone SHOAIB ACKERMAN Unavailable [phone] NURY OBRIEN Unavailable [phone] ALLERGIES Allergen (clinical drug ingredient) Drug/Non Drug [...] 1.5 MG Two capsules Orally daily Active Liothyronine Sodium 5 MCG 1 tablet on an empty stomach Orally Once a day Active Levothyroxine Sodium 88 MCG 1 tablet in the morning on an empty stomach Orally Once a day Active Citalopram Hydrobromide 10 MG 1 tablet Orally Once a day for 30 days Active SOCIAL HISTORY Tobacco Use: Social History [...] unspecified (E55.9) Active confirmed Vitamin D deficiency (35670987) Problem Encounter for screening for lipoid disorders (Z13.220) Active confirmed Lipid screening (431431404) Problem Essential hypertension (I10) Active confirmed 25177513 Problem Anxiety (F41.9) Active confirmed Anxiet y (28052911) Problem Adult general medical exam (Z00.00) Active confirmed Adult health examination (502431822) Problem Seasonal allergies (J30.2) Active confirmed Seasonal allergy (701501545) Problem Weight gain (R63.5) Active confirmed Weight gain (994578681) Problem Anemia due to vitamin B12 deficiency, unspecified B12 deficiency type (D51.9) Active confirmed Vitamin B>12< deficiency anaemia (73023862) 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 23340381 Problem Encounter for screening for endocrine disorder (Z13.29) Active confirmed Endocrine/metab olic screening (736089249) VITAL SIGNS Heart Rate 104 /min 03/05/2024 Oximetry 99 % 03/05/2024 Blood pressure diastolic 96 mm Hg 03/05/2024 Height 62 in 03/05/2024 Blood pressure systolic 142 mm Hg 03/05/2024 Weight 176.5 lbs 03/05/2024 BMI 32.28 kg/m2 03/05/2024 Encounters Encounter Location Date Provider Diagnosis [facility] [address] [place] [address] 03/05/2024 NURY OBRIEN Weight gain R63.5 ; Clifton's disease E06.3 and Essential hypertension I10 [facility] [address] [place] [address] 03/14/2024 NURY OBRIEN ASSESSMENTS Encounter Date Diagnosis Assessment Notes Treatment [...] Dictation was accomplished with the use of WEEZEVENT voice recognition software, which is prone to [...] Dictation was accomplished with the use of WEEZEVENT voice recognition software, which is prone to [...] Dictation was accomplished with the use of WEEZEVENT voice recognition software, which is prone to [...] Name:NURY OBRIEN, 03:15:00 PM, [address], [place], [address], Insurance Providers Payer Name Payer Address Payer Phone Subscriber Number Group Number Insured Name Patient Relationship to Insured Coverage Start Date Coverage End Date [facility] [address] [place] [address] [id number] Negar Velazquez Self - patient is the insured MEDICAL (GENERAL) HISTORY Medical History History ICD Code 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
--- OUTSIDE RECORDS SUMMARY | 2024-03-16 10:21 | XMS_ITS ---
Author Organization [facility] Address [address] [place] [address] Care Team Providers Care Bench Mechanic Name Role Phone SHOAIB ACKERMAN Unavailable [phone] MICAHNURY Malone Unavailable [phone] ALLERGIES Allergen (clinical drug ingredient) Drug/Non Drug Allergy documented on EMR Reaction Allergy Type Onset Date Status amoxicillin / clavulanate Augmentin stomach upset Drug Allergy Active amoxicillin Amoxicillin hives Drug Allergy Act rachele doxycycline Doxycycline vomiting Drug Allergy Act rachele REASON FOR VISIT pt here for THREAD LASTER visit, stated she had mammo screening in [...] Notes 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 59517640 Problem Essential hypertension (I10) Active confirmed 18423311 Problem Anxiety (F41.9) Active confirmed Anxiet y (10430641) Problem Seasonal allergies (J30.2) Active confirmed Seasonal allergy (143021958) VITAL SIGNS Heart Rate 104 /min 03/05/2024 Blood pressure systolic 142 mm Hg 03/05/20 24 Blood pressure diastolic 96 mm Hg 024 Weight 176.5 lbs 03/05/2024 BMI 32.28 kg/m2 03/05/2024 Height 62 in 03/05/2024 Oximetry 99 % 03/05/2024 Encounters Encounter Location Date Provider Diagnosis [facility] [address] [place] [address] 03/05/2024 NURY OBRIEN Weight gain R63.5 ; [...] Dictation was accomplished with the use of Norm[employer] voice recognition software, which is prone to [...] Dictation was accomplished with the use of [employer] voice recognition software, which is prone to [...] Dictation was accomplished with the use of [employer] voice recognition software, which is prone to [...] Name:NURY OBRIEN, 03:15:00 PM, [address], [place], [address], Progress Notes * Negar SCOTTDOB:1980 ([age] yo F)Acc No.[id number]:03/05/2024 Progress Notes Patient:??eNgar SCOTT Provider:??NURY OBRIEN PA-C :1980?Age:43 Y?Sex:Fe male Date:03/05/2024 Address: [address] [place], [place] Subjective: * Chief Complaints: * ?1. pt here for THREAD LASTER sakshi chatman, stated she had mammo screening in september. * HPI: ?Constitutional:? Negar is a pleasant 43-year-old female who presents as a new patient. She states that she was previously being followed by [facility] PCP, states that her last physical exam [...] loss, no fever and no night sweats ???Eyes: No eye discharge, no itching, no redness. Advised the significance of regular eye exams to screen for glaucoma and other eye problems ???Ear nose throat: No sore throat, postnasal drip, runny nose, Sneezing ???Cardiovascular: No chest pain, no shortness of breath, no dyspnea on exertion, no PND, no orthopnea, no irregular pulse ???Respiratory: No chronic cough, no hemoptysis, no sputum, no wheezing ???GI, no diarrhea, no constipation no blood in the stools, no pain associated with eating, no indigestion ???Genitourinary: No painful urination no hesitancy no blood in the urine ???Musculoskeletal, no limitations to walking and running, no joint deformity, no joint stiffness, no chronic back pain, no noise with joint movement ???Integumentary, no new skin rash. No new changes in skin moles ???Neurological: No history of seizures, memory loss, No language dysfunction, No inability to concentrate, no localized weakness, no sensation loss, no confusion ???Psychiatric: No depression, no suicidal thoughts, no anxiety ???Endocrine: No polyuria no polyphagia or polydipsia, no heat intolerance no cold intolerance ???Hematological: No easy bruising or Lymph node swelling. * Medical History:??Clifton' s disease, Anxiety, Seasonal allergies, Headache. * Fitting Room Operator History:??Last pap smear date??03/09/2023.??Last mammogram date??09/16/2023.??breast exam??03/09/2023.?? 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 * Medications:??Taking Naltrex 1.5 MG Capsule [...] * Assessment: 1.??Weight gain - R63.5 (Asmita garnica)??2.??Clifton's disease - E06.3??3.??Essential hypertension - I10?? Maria [...] Dictation was accomplished with the use of [employer] voice recognition software, which is prone to [...] * Images: Billing Information: * Visit Code:?? 72445 Office Visit, New Pt., Level 4. * Procedure Codes:?? * Sign off status: Completed true * Provider:??NURY OBRIEN PA-C Date:??03/05 History and Physical Notes * HPI (History of Present Illness) Category Sub-Category Detail Notes Category Not es Constitutional Negar is a pleasant 43-year-old female who presents as a new patient. She states that she was previously being followed by [facility] PCP, states that her last physical exam along with lab work was around 2 years ago. As per specialist the patient states that she does follow with functional medicine for Clifton's, dermatology occasionally for skin concerns. Mammogram: September, [facility] Dentist: 6 m Eye Doctor: Yearly Flu: [...]
--- OUTSIDE RECORDS SUMMARY | 2024-03-16 10:21 | XMS_ITS ---
Author Organization [facility] Address [address] [place] [address] Care Team Providers Care Sewage Plant Operator Name Role Phone SHOAIB ACKERMAN Unavailable [phone] MICAHNURY Malone Unavailable [phone] REASON FOR VISIT New Refill Request MEDICATIONS Medication SIG (Take, Route, Frequency, Duration) Notes Start Date End Date Status Citalopram Hydrobromide 10 MG 1 tablet Orally Once a day for 30 days Active Encounters Encounter Location Date Provider Diagnosis [facility] [address] [place] [phone] 03/14/2024 NURY OBRIEN PLAN OF TREATMENT Medication Medication Name Sig Start Date Stop Date Notes Citalopram Hydrobromide 10 MG 1 tablet O rally Once a day for 30 days Next Appt Details Provider Name:NURY OBRIEN, 03:15:00 PM, [address] [facility], [place], [address], Progress Notes * Negar CSOTTDOB:1980 ([age] yo F)Acc No.[id number]:03/14/2024 Patient:??Negar SCOTT :1980?Age:43 Y?Sex:Fe male Address: [place] [address] * Refills?? Refill Citalopram Hydrobromide Tablet, 10 MG, Orally, 30 Tablet, 1 tablet, Once a day, 30 days, Refills=1 * true * Date:??
[2024-03-16 10:32] LABS: Basophils Percent Auto 0.4 % (0-2); Eosinophils Absolute Auto 0.1 X10*3/uL (0.0-0.4); Eosinophils Percent Auto 2.1 % (0-4); Hematocrit 39.4 % (37.0-47.0); Hemoglobin 13.3 g/dl (12.0-16.0); Imm Gran Abs Auto 0.01 X10*3/uL (0.00-0.03); Imm Gran Pct Auto 0.2 % (0.0-0.4); Lymphocytes Absolute Auto 1.5 X10*3/uL (1.2-4.9); Mean Corpuscular HGB Conc 33.8 g/dl (31.0-35.0); Mean Corpuscular Hemoglobin 30.4 pg (27.0-33.0); Mean Corpuscular Volume 90.2 fL (80.0-98.0); Mean Platelet Volume 9.7 fL (9.4-12.3); Monocytes Absolute Auto 0.5 X10*3/uL (0.1-1.2); Monocytes Percent Auto 10.7 % (2-11); Neutrophils Absolute Auto 2.6 x10*3/uL (2.0-8.3); Neutrophils Percent Auto 54.6 % (45-73); Platelet Count 304 X10*3/uL (160-400); Red Blood Count 4.37 X10*6/uL (4.20-5.50); Red Cell Distribution Width 13.1 % (11.0-16.0); White Blood Count 4.7 X10*3/uL (4.8-10.8)
[2024-03-16 12:09] LABS: Alanine Aminotransferase 14 U/L (0-31); Albumin Level 4.2 g/dL (3.5-5.0); Alkaline Phosphatase 57 U/L (39-117); Anion Gap 10 (12-20); Aspartate Amino Transferase 18 U/L (5-31); Blood Urea Nitrogen 7 mg/dL (9-16); Calcium 9.5 mg/dL (8.4-10.2); Carbon Dioxide 25 mmol/L (22-29); Chloride 109 mmol/L (96-108); Cholesterol 185 mg/dL (<200); Estimated Glomerular Filt Rate > 60; Glucose Random 85 mg/dL (60-115); HDL Cholesterol 56 mg/dL (>40); LDL Cholesterol Calculated 118 mg/dL (<100); Potassium 4.1 mmol/L (3.3-5.1); Sodium 140 mmol/L (135-145); Total Protein 6.8 g/dL (6.5-8.0); Triglycerides 58 mg/dL (<150)
[2024-03-16 12:13] LABS: Cortisol Random 7.4 ug/dL
[2024-03-16 12:26] LABS: Bilirubin Total 0.6 mg/dL (0.0-1.0)
[2024-03-16 12:28] LABS: Free T4 (Free Thyroxine) 0.92 ng/dL (0.71-1.85); Thyroid Stimulating Hormone 1.37 uIU/mL (0.32-4.0); Vitamin D 25-OH Total 36.4 ng/mL (>30)
[2024-03-17 17:33] LABS: Triiodothyronine T3 Free 2.8 pg/mL (2.3-4.2)
[2024-03-17 17:39] LABS: Follicle Stimulating Hormone 8.4 mIU/mL; Lutenizing Hormone 7.8 mIU/mL
[2024-03-21 15:57] LABS: Testosterone, Free 2.7 pg/mL (0.1-6.4); Testosterone, Total 26 ng/dL (2-45)
[2024-03-22 01:59] LABS: Estradiol Ultra Sensitive 164 pg/mL
== END 2024-03-16 09:46 | disposition home or self-care (01) ==
LOC: HO.10HDL 09:45
DX: Z00.00 Encounter for general adult medical examination without abnormal findings (principal); Z13.220 Encounter for screening for lipoid disorders; Z13.29 Encounter for screening for other suspected endocrine disorder; R63.5 Abnormal weight gain; E55.9 Vitamin D deficiency, unspecified
CPT/HCPCS: 36415; 80053; 80061; 82306; 82533; 82670; 83001; 83002; 84144; 84402; 84403; 84439; 84443; 84481; 85025

== ENCOUNTER 2024-06-09 15:08 | Outpatient (REF) | payer BC, SELFPAY ==
[2024-06-09 17:17] LABS: Hematocrit 37.9 % (37.0-47.0); Hemoglobin 12.6 g/dl (12.0-16.0); Mean Corpuscular HGB Conc 33.2 g/dl (31.0-35.0); Mean Corpuscular Hemoglobin 29.9 pg (27.0-33.0); Mean Platelet Volume 10.3 fL (9.4-12.3); Platelet Count 335 X10*3/uL (160-400); Red Blood Count 4.21 X10*6/uL (4.20-5.50); Red Cell Distribution Width 13.6 % (11.0-16.0); White Blood Count 6.7 X10*3/uL (4.8-10.8)
[2024-06-09 18:21] LABS: TSH reflex Free T4 0.19 uIU/mL (0.32-4.0)
--- OUTSIDE RECORDS SUMMARY | 2024-06-09 18:22 | XMS_ITS | Clinical Summary ---
[facility] Address [address] [id number] Care Team Providers Care Cook Candy Name Role Phone Neisha Ramirez APRN Primary Care Provider +1- [phone] Allergies Active Allergy Reactions Criticality Noted Date [...] age to complete this topic Care Teams Cook Candy Relationship Specialty Start Date End Date Neisha Ramirez, HOG TRADER [address] [facility] 2 Stephania Pacheco Primary [facility] [place] [address] PCP - General Family Medicine 09/16/17
[2024-06-09 18:51] LABS: Free T4 (Free Thyroxine) 0.94 ng/dL (0.71-1.85)
[2024-06-10 10:41] LABS: CT PCR NOT DETECTED (Not Detect.); NG PCR NOT DETECTED (Not Detect.)
== END 2024-06-09 15:09 | disposition home or self-care (01) ==
LOC: HO.LNP 15:08
PROVIDERS: PCP Family Medicine; Visit Provider Obstetrics & Gynecology
DX: N93.9 Abnormal uterine and vaginal bleeding, unspecified (principal)
CPT/HCPCS: 81025; 84439; 84443; 85027; 87491; 87591

== ENCOUNTER 2024-06-09 15:08 | Outpatient (AMB) | payer BC, SELFPAY ==
--- NOTE | 2024-06-09 15:09 | MHC.OFFVIS ---
Vital Signs 06/09/24 15:13 Height 5 ft 2 in Weight 175 lb BMI 32.0 Intake Visit Reasons: vaginal bleeding Hand Sole Sewer Required: No Information Interpreted: non-clinical & clinical Shoe Lacer: Shoe Lacer Present (Rika TORRES) Accompanied by: Self / Same As Patient Allergies amoxicillin [From Augmentin] Adverse Reaction (Intermediate, Verified 06/09/24 15:13) vomiting clavulanic acid [From Augmentin] Adverse Reaction (Intermediate, Verified 06/09/24 15:13) vomiting Doxycycline (Rosacea) Allergy (Unknown, Uncoded 06/09/24 15:13) vomiting Is last menstrual period known: No (mirena) HPI Comments Details: Presenting complaining of an episode of vaginal bleeding after 1 year of amenorrhea after Mirena IUD insertion. Last co testing in 06/29 was negative Last screening mammogram in 10/01 at [facility] was negative according to patient, no records available COUNTS INCLUDE 234 BEDS AT [facility] Medical History Vitamin D deficiency Hypoglycemia Hypothyroidism Surgical History No history of previous surgery Family History Mother Family history of thyroid problem Father Type 1 diabetes Maternal Grandfather Type 2 diabetes mellitus Maternal Grandmother Family history of thyroid problem Social History Household Members: Spouse and Children Housing: House Alcohol intake: never Patient Tobacco Use Status: Never used Tobacco e-Cigarette/Vaping Use: Never Used Second Hand Smoke Exposure: No service: No Current occupational exposures/hazards: No Gender identity: Female Cognitive needs: No Hearing needs: No Vision needs: No Female Reproductive History Menstrual Age of Menarche: 12 Review of Systems Const All systems reviewed & are unremarkable except as noted in HPI and below Physical Exam Vital Signs: BMI result Body Mass Index 32.0 General: Yes no CVA tenderness External Female Exam: normal external appearance and normal appearance of the urethra Speculum Exam - Vagina: normal appearance of the vagina, normal palpation, no lesions and no masses Speculum Exam - Cervix: normal appearance of the cervix, normal palpation, no lesions, no masses, nontender and Other cervical findings present (IUD string in place) Bimanual exam- vagina & uterus: normal bimanual exam, normal palpation, uterine size normal, normal palpation, uterine shape normal, No Cervical tenderness present and non-tender Bimanual Exam- Adnexa, other: normal adnexae Back/Spine/Pelvis Back: no CVA tenderness Results AMB Test Urine AMB Test Urine Negative Last Edit by Rika Almaraz CMA on 06/09/24 15:16 Results Reviewed Results Reviewed: Laboratory Last Values Tst Clinic Negative 06/09/24 15:15 Assessment & Plan Assessment & Plan (1) Abnormal uterine bleeding (AUB): Comment: On Mirena IUD Code(s): N93.9 - Abnormal uterine and vaginal bleeding, unspecified Category: Medical Plan: UPT done in the office was negative. GC and chlamydia taken CBC, TSH, HCG, and pelvic ultrasound ordered. Discussed with the patient the different causes of abnormal bleeding including thyroid disorders, uterine and ovarian pathology, endometrial hyperplasia, carcinoma and other potential causes. Discussed with the patient the work up including CBC (to r/o anemia), TSH, pelvic Ultrasound, endometrial biopsy to r/o endometrial pathology. All questions answered and the patient verbalized understanding. Instructed the patient to schedule an appointment for an endometrial biopsy in 2 weeks. Orders: Orders TSH reflex Free T4 Today N93.9 - Abnormal uterine and vaginal bleeding, unspecified AMB HCG Urine Test Today Z32.02 - Encounter for test, result negative CT NG by PCR Today N93.9 - Abnormal uterine and vaginal bleeding, unspecified Complete Blood Count no Diff Today N93.9 - Abnormal uterine and vaginal bleeding, unspecified US pelvic and transvaginal Today N93.9 - Abnormal uterine and vaginal bleeding, unspecified Coding Level of Care Code Est Pt Level 3 (89061) Diagnoses Abnormal uterine bleeding (AUB) N93.9
[2024-06-09 15:13] VITALS: BMI 32.0
--- OUTSIDE RECORDS SUMMARY | 2024-06-09 17:57 | XMS_ITS ---
Author Organization [facility] Address [address] [place] [id number] Care Team Providers Care Power Press Supervisor Name Role Phone SHOAIB ACKERMAN Unavailable [phone] LACEY BOSWELLY Unavailable [phone] ALLERGIES Allergen (clinical drug ingredient) Drug/Non Drug Allergy documented on EMR Reaction Allergy Type Onset Date Status amoxicillin / clavulanate Augmentin stomach upset Drug Allergy Active amoxicillin Amoxicillin hives Drug Allergy Act rachele doxycycline Doxycycline vomiting Drug Allergy Act rachele REASON FOR VISIT pt presents in office today for urgent care visit with concerns of blocked ears without pain MEDICATIONS Medication SIG (Take, Route, Frequency, Duration) Notes Start Date End Date Status Azelastine HCl 137 MCG/SPRAY 2 puffs (1 spray in each nostril) Nasally Twice a day for 30 days 06/02/2024 Active Azithromycin 250 MG 2 tabs on day 1, then 1 tab daily Orally daily for 5 days 04/23/2024 Active predniSONE 10 MG 4 tab x 3 days, 3 tabs x 3 days, 2 tabs x3 days, 1 tab x 3 days Orally Once a day for 12 days 04/23/2024 Active Citalopram Hydrobromide 10 MG 1 tablet Orally Once a day for 90 days 90 days supply Active Levothyroxine Sodium 88 MCG 1 tablet in the morning on an empty stomach Orally Once a day Active Naltrex 1.5 MG Two capsules Orally daily Active Liothyronine Sodium 10 MCG/ML 1 mL as needed Orally Once a day Active SOCIAL HISTORY Tobacco Use: Social History Observation Description Date Details (start date - stop date) Never Smoker NA - NA Sex Assigned At : Social History Observation Description Sex Assigned At Unknown Tobacco Use/Smoking Question Answer Notes Are you a 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 VITAL SIGNS Blood pressure systolic 140 mm Hg 06/03/19 25 Blood pressure diastolic 88 mm Hg 025 Heart Rate 93 /min 06/02/2024 Height 62 in 06/02/2024 Weight 178.5 lbs 06/02/2024 BMI 32.64 kg/m2 06/02/2024 Oximetry 99 % 06/02/2024 Encounters Encounter Location Date Provider Diagnosis [facility] [address] [place] [address] 06/02/2024 MARK BOSWELL Right ear pain H92.01 and Non-recurrent acute serous otitis media of right ear H65.01 ASSESSMENTS Encounter Date Diagnosis Assessment Notes Treatment Notes Treatment Clinical Notes Section Notes 06/02/2024 Right ear pain (ICD-10 - H92.01) Negar is a pleasant 43-year-old female with PMHx of Clifton's, anxiety, seasonal allergies and headaches who present for an urgent visit for ear blockage. Associated decreased hearing, R ear pressure/fullness with minimal nasal congestion. Patient currently finishing oral prednisone and azithromycin which was prescribed by urgent care last week. On physical examination there is a small amount of fluid behind the right tympanic membrane, the bilateral ears do not show any signs of active infection. Most likely diagnosis at this time is serous otitis media, likely related to stasis of sinus congestion in the setting of recent airplane travel. Recommend patient continues over the counter antihistamine, will prescribe azelastine nasal spray. Patient currently taking Shauna, discussed changing to Claritin since she has not had improvement in symptoms with the Shauna. Patient is agreeable to plan. Discussed following up in one week if symptoms do not improve or worsen. Return precautions discussed and emergency department criteria reviewed.If no improvement, consider ENT referral. Discussed emergency department criteria/criteria to call the office. All questions answered to patients satisfaction. Patient verbalized understanding of diagnosis and treatments explained. To call sooner prior to next visit it any questions/concerns arise. Case discussed with collaborating physician Murtaza Osborn who reviewed the assessment and plan. Chart, medications, labs, vital signs reviewed. Dictation was accomplished with the use of [employer] voice recognition software, prone to medical misidentifications and grammatical errors. This is unintentional, and the practitioner does try to identify and correct these, but some could still be present. Please do not hesitate to contact practitioner for clarification. 06/02/2024 Non-recurrent acute serous otitis media of right ear (ICD-10 - H65.01) Negar is a pleasant 43-year-old female with PMHx of Clifton's, anxiety, seasonal allergies and headaches who present for an urgent visit for ear blockage. Associated decreased hearing, R ear pressure/fullness with minimal nasal congestion. Patient currently finishing oral prednisone and azithromycin which was prescribed by urgent care last week. On physical examination there is a small amount of fluid behind the right tympanic membrane, the bilateral ears do not show any signs of active infection. Most likely diagnosis at this time is serous otitis media, likely related to stasis of sinus congestion in the setting of recent airplane travel. Recommend patient continues over the counter antihistamine, will prescribe azelastine nasal spray. Patient currently taking Shauna, discussed changing to Claritin since she has not had improvement in symptoms with the Shauna. Patient is agreeable to plan. Discussed following up in one week if symptoms do not improve or worsen. Return precautions discussed and emergency department criteria reviewed.If no improvement, consider ENT referral. Discussed emergency department criteria/criteria to call the office. All questions answered to patients satisfaction. Patient verbalized understanding of diagnosis and treatments explained. To call sooner prior to next visit it any questions/concerns arise. Case discussed with collaborating physician Murtaza Osborn who reviewed the assessment and plan. Chart, medications, labs, vital signs reviewed. Dictation was accomplished with the use of [employer] voice recognition software, prone to medical misidentifications and grammatical errors. This is unintentional, and the practitioner does try to identify and correct these, but some could still be present. Please do not hesitate to contact practitioner for clarification. PLAN OF TREATMENT Medication Medication Name Sig Start Date Stop Date Notes Azelastine HCl 137 MCG/SPRAY 2 puffs (1 spray in each nostril) Nasally Twice a day for 30 days 06/02/2024 Next Appt Details Provider Name:NURY CYR, 10:30:00 AM, [address], [place], [address], Progress Notes * Surekha SCOTT:1980 ([age] yo F)Acc No.[id number]:06/02/2024 Progress Notes Patient:??Negar SCOTT Provider:??MARK CHAPMAN PA-C :1980?Age:43 Y?Sex:Fe male Date:06/02/2024 Address:[address] [place], [place] [id number] Subjective: * Chief Complaints: * ?1. Pt presents in offi ce today for urgent care visit with concerns of blocked ears without pain. * HPI: ?Constitutional:? Negar is a pleasant 43-year-old female with a past medical history of Clifton's, anxiety, seasonal allergies and headaches who presents to the office today for a blocked ear. She reports she flew to [facility] recently and on the plane ride home last Saturday her ears popped. She reports associated R ear pressure and fullness with minimal nasal congestion. She's tried flonase, shauna, afrin, hyaline's clogging drops, and hydrogen peroxide drops without relief in symptoms. Has also tried mechanical decompression by blowing her nose and popping her ears. She presented to [facility] on Saturday who prescribed her oral prednisone and azithromycin which she is scheduled to finish tomorrow. Patient denies ear pain, ear drainage, fevers, sinus pain, rhinorrhea, eye pain or drainage, sore throat. * ROS:?Review of systems negative except as stated in the HPI. * Medical History:??Clifton' s disease, Anxiety, Seasonal allergies, Headache. * Surgical History:??C section , c section [...] healthy. 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 * Medications:??Taking Naltrex 1.5 MG Capsule Two capsules Orally daily , Taking Liothyronine Sodium 10 MCG/ML Solution 1 mL as needed Orally Once a day , Taking Levothyroxine Sodium 88 MCG Tablet 1 tablet in the morning on an empty stomach Orally Once a day , Taking predniSONE 10 MG Tablet 4 tab x 3 days, 3 tabs x 3 days, 2 tabs x3 days, 1 tab x 3 days Orally Once a day , Taking Azithromycin 250 MG Tablet 2 tabs on day 1, then 1 tab daily Orally daily , Taking Citalopram Hydrobromide 10 MG Tablet 1 tablet Orally Once a day , Notes to Pharmacist: 90 days supply, Medication List reviewed and reconciled with the patient * Allergies:??Amoxicillin: hiv es - Allergy, Doxycycline: vomiting - Allergy, Augmentin: stomach upset - Allergy. Objective: * Vitals:??HR:93/min, BP:140/8 8mm Hg, Wt:178.5lbs, BMI:32.64Index, Ht: 62 in, Oxygen sat %:99%. * Physical Examination:?General: Age appropriate 43 year old female, in no acute distress, comfortable and well appearing. ?HEENT: Head is atraumatic and normocephalic. Neck is supple and without lymphadenopathy. No pharyngeal erythema or exudates. No tonsillar hypertrophy or lesions in the oropharynx. EOMI and PERRL. Pupils converge and dilate as expected on accomodation testing. No pain on manipulation of the tragus. The bilateral auditory canals are without cerumen or erythema. Tympanic membranes appear pearly arciniega without bulging or erythema. The R eardrum is notable for a small amount of fluid visualized behind it. ?Pulmonary: LCTAB without wheezing, rales, rhonchi. ?Cardiac: Regular rate and rhythm, no murmurs, rubs, or gallops. Radial pulses are 2+ and equal bilaterally. Assessment: * Assessment: 1.??Right ear pain - H92.01 (Primary)??2.??Non-recurrent acute serous otitis media of right ear - H65.01?? Negar is a pleasant 43-year -old female with PMHx of Clifton's, anxiety, seasonal allergies and headaches who present for an urgent visit for ear blockage. Associated decreased hearing, R ear pressure/fullness with minimal nasal congestion. Patient currently finishing oral prednisone and azithromycin which was prescribed by urgent care last week. On physical examination there is a small amount of fluid behind the right tympanic membrane, the bilateral ears do not show any signs of active infection. Most likely diagnosis at this time is serous otitis media, likely related to stasis of sinus congestion in the setting of recent airplane travel. Recommend patient continues over the counter antihistamine, will prescribe azelastine nasal spray. Patient currently taking Shauna, discussed changing to Claritin since she has not had improvement in symptoms with the Shauna. Patient is agreeable to plan. Discussed following up in one week if symptoms do not improve or worsen. Return precautions discussed and emergency department criteria reviewed.If no improvement, consider ENT referral. Discussed emergency department criteria/criteria to call the office. All questions answered to patients satisfaction. Patient verbalized understanding of diagnosis and treatments explained. To call sooner prior to next visit it any questions/concerns arise. Case discussed with collaborating physician Murtaza Osborn who reviewed the assessment and plan. Chart, medications, labs, vital signs reviewed. Dictation was accomplished with the use of [employer] voice recognition software, prone to medical misidentifications and grammatical errors. This is unintentional, and the practitioner does try to identify and correct these, but some could still be present. Please do not hesitate to contact practitioner for clarification. Plan: * Treatment: Care Plan: * Problems:?? * Images: Billing Information: * Visit Code:?? 56888 Office Visit, Est Pt., Level 3. Modifiers: 25, SA * Procedure Codes:?? Care Plan Details* * Sign off status: Completed true * Provider:??MARK CHAPMAN PA-C Date:??05/10 History and Physical Notes * HPI (History of Present Illness) Category Sub-Category Detail Notes Category Not es Constitutional Negar is a p leasant 43-year-old female with a past medical history of Clifton's, anxiety, seasonal allergies and headaches who presents to the office today for a blocked ear. She reports she flew to [facility] recently and on the plane ride home last Saturday her ears popped. She reports associated R ear pressure and fullness with minimal nasal congestion. She's tried flonase, shauna, afrin, hyaline's clogging drops, and hydrogen peroxide drops without relief in symptoms. Has also tried mechanical decompression by blowing her nose and popping her ears. She presented to [facility] on Saturday who prescribed her oral prednisone and azithromycin which she is scheduled to finish tomorrow. Patient denies ear pain, ear drainage, fevers, sinus pain, rhinorrhea, eye pain or drainage, sore throat. Physical Examination Category Sub-Category Detail Notes Section Note s General: Age appropriate 43 year old female, in no acute distress, comfortable and well appearing. HEENT: Head is atraumatic and normocephalic. Neck is supple and without lymphadenopathy. No pharyngeal erythema or exudates. No tonsillar hypertrophy or lesions in the oropharynx. EOMI and PERRL. Pupils converge and dilate as expected on accomodation testing. No pain on manipulation of the tragus. The bilateral auditory canals are without cerumen or erythema. Tympanic membranes appear pearly arciniega without bulging or erythema. The R eardrum is notable for a small amount of fluid visualized behind it. Pulmonary: LCTAB without wheezing, rales, rhonchi. Cardiac: Regular rate and rhythm, no murmurs, rubs, or gallops. Radial pulses are 2+ and equal bilaterally.
--- OUTSIDE RECORDS SUMMARY | 2024-06-09 17:57 | XMS_ITS | Clinical Summary ---
[facility] Organization [facility] Address [address] [id number] Care Team Providers Care Vegetable Sorter Name Role Phone Neisha Ramirez APRN Primary Care Provider [phone] Allergies Active Allergy Reactions Criticality Noted Date Comments Amoxicillin-Pot Clavulanate Nausea And Vomiting Medium 09/17/2017 Doxycycline Nausea And Vomiting Medium 09/17/2017 Medications Medication Sig Dispensed Refills Start Date End Date Status citalopram (CELEXA) 10 MG tablet 0 09/12/2017 Active Clindamycin Phos-Benzoyl Perox gel 0 09/05/2017 Active levonorgestrel-ethinyl estradiol (SEASONALE) 0.15-0.03 MG per tablet 0 08/20/2017 Active levothyroxine (SYNTHROID, LEVOXYL) tablet 25 mcg 0 08/07/2017 Active tretinoin (RETIN-A) 0.025 % cream 0 06/17/2017 Active Family History Medical History Relation Name Comments Cancer Father Diabetes Father Relation Name Status Comments Father Alive Testitcular Social History Tobacco Use Types Packs/Day Years Used Date Smoking Tobacco: Never Smokeless Tobacco: Never Alcohol Use Standard Drinks/Week Comments No 0 (1 standard drink = 0.6 oz pur e alcohol) Sex and Gender Information Value Date Recorded Sex Assigned at Not on file Gender Identity Not on file Sexual Orientation Not on file Last Filed Vital Signs Vital Sign Reading Time Taken Comments Blood Pressure 126/78 09/17/2017 12:20 PM EDT Pulse 54 09/17/2017 10:35 AM EDT Temperature 36.7 ??C (98.1 ??F) 09/17/2017 10:35 AM E DT Respiratory Rate - - Oxygen Saturation 98% 09/17/2017 10:35 AM EDT Inhaled Oxygen Concentration - - Weight 67.6 kg (149 lb) 09/17/2017 10:35 AM EDT Height 154.9 cm (5' 1 ) 09/17/2017 10:35 AM EDT Body Mass Index 28.15 09/17/2017 10:35 AM EDT Plan of Treatment Health Maintenance Due Date Last Done Comments Hepatitis B Vaccines (1 of 3 - 3-dose series) 1980 Hepatitis C Screening 1980 COVID-19 Vaccine (#1) 06/04/1980 Depression Screening 1991 Preventative Health Evaluation 12/05/1997 DTap / Tdap / Td (1 - Tdap) 12/05/1998 Cervical Cancer Screening (P ap Smear) 12/05/2000 Influenza Vaccine (#1) 2023 Pneumococcal Vaccine Aged Out No long er eligible based on patient's age to complete this topic RSV Ped < 20 months Aged Out No longe r eligible based on patient's age to complete this topic Care Teams Vegetable Sorter Relationship Specialty Start Date End Date Neisha Ramirez, CHILD CARE SITTER [address] [facility] [address] [place] [address] PCP - General Family Medicine 09/16/17
--- OUTSIDE RECORDS SUMMARY | 2024-06-09 17:57 | XMS_ITS ---
Author Organization [facility] Address [address] [place] [address] Care Team Providers Care Optometric Aide Name Role Phone TYRON, SHOAIB Unavailable [phone] REASON FOR VISIT urgent Encounters Encounter Location Date Provider Diagnosis [facility] [address] [place] [address] 06/01/2024 SHOAIB ACKERMAN PLAN OF TREATMENT Next Appt Details Provider Name:NURY OBRIEN, 10:30:00 AM, [address] , [place], [address], Progress Notes * Negar SCOTTDOB:1980 ([age] yo F)Acc No.[id number]:06/01/2024 Patient:??Negar SCOTT :1980?Age:43 Y?Sex:Fe male Address: [place] [address] * true * Date:??
--- OUTSIDE RECORDS SUMMARY | 2024-06-09 17:58 | XMS_ITS | Patient Health Record ---
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 PROBLEMS Problem Type ICD Code Onset Dates Problem Status W/U Status Risk SNOMED Code Notes Problem Vitamin D deficiency, unspecified (E55.9) Active confirmed Vitamin D deficiency (15780551) Problem Encounter for screening for lipoid disorders (Z13.220) Active confirmed Lipid screening (122438593) Problem Essential hypertension (I10) Active confirmed 61332550 Problem Anxiety (F41.9) Active confirmed Anxiet y (07074308) Problem Adult general medical exam (Z00.00) Active confirmed Adult health examination (923185329) Problem Seasonal allergies (J30.2) Active confirmed Seasonal allergy (169528106) Problem Weight gain (R63.5) Active confirmed Weight gain (267846862) Problem Anemia due to vitamin B12 deficiency, unspecified B12 deficiency type (D51.9) Active confirmed Vitamin B>12< deficiency anaemia (11719997) 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 97459873 Problem Encounter for screening for endocrine disorder (Z13.29) Active confirmed Endocrine/metab olic screening (105750467) VITAL SIGNS Heart Rate 93 /min 06/02/2024 Oximetry 99 % 06/02/2024 Blood pressure diastolic 88 mm Hg 06/02/2024 Height 62 in 06/02/2024 Blood pressure systolic 140 mm Hg 06/02/2024 Weight 178.5 lbs 06/02/2024 BMI 32.64 kg/m2 06/02/2024 Encounters Encounter Location Date Provider Diagnosis [facility] [address] [place] [address] 05/21/2024 NURY MICAH [facility] [address] [place] [address] 06/02/2024 NURY MICAH [facility] [address] [place] [address] 03/05/2024 NURY MICAH Weight gain R63.5 ; Clifton's disease E06.3 and Essential hypertension I10 [facility] [address] [place] [address] 04/23/2024 NURY MICAH Weight gain R63.5 ; Well adult exam Z00.00 ; Clifton's disease E06.3 ; Essential hypertension I10 and Anxiety F41.9 [facility] [address] [place] [address] 06/02/2024 MARK BOSWELL Right ear pain H92.0 1 and Non-recurrent acute serous otitis media of right ear H65.01 [facility] [address] [place] [address] 03/20/[address] [facility] [address] [place] [address] 04/14/[address] [facility] [address] [place] [address] 04/23/2024 NURY MICAH [facility] [address] [place] [address] 06/01/2024 SHOAIB TYRON [address] [place] [address] 03/14/2024 NURY MICAH [address] [place] [address] 04/08/2024 SHOAIB TYRON [address] [place] [address] 05/04/2024 SHOAIB TYRON [address] [place] [address] 05/05/2024 SHOAIB TYRON [address] [place] [address] 05/17/2024 SHOAIB TYRON [address] [place] [address] 05/17/2024 SHOAIB TYRON [address] [place] [address] 05/28/2024 SHOAIB TYRON ASSESSMENTS Encounter Date Diagnosis Assessment Notes Treatment [...] Dictation was accomplished with the use of [employer] voice recognition software, which is prone to [...] Dictation was accomplished with the use of [employer] voice recognition software, which is prone to medical misidentifications and grammatical errors. This are unintentional and the practitioner does try to identify and correct these, but some could still be present. Please do not hesitate to contact practitioner for clarification. 04/23/2024 Weight gain (ICD-10 - R63.5) Negar is a pleasant 43-year-old female with a past medical history of Clifton's, essential hypertension, anxiety, headaches and seasonal allergies who presents to the office today for a full physical exam. Patient is up-to-date on all of her screenings and vaccinations at this time. #Cough: Azithromycin, prednisone prescribed today. Patient given a written prescription for guaifenesin codeine, she is to call the office if she cannot find this prescription and we will send Kaleb Mathias instead. Will follow-up with the patient in 2 weeks to ensure she is feeling better. #Essential hypertension: Patient's blood pressure reading in office is 140/90 #Clifton's: Patient currently follows with functional medicine, she is taking liothyronine sodium 5 mcg, levothyroxine sodium 88 mcg. Patient follows routinely with functional medicine provider every year. #Weight gain: Consider offering patient a weight management program, obtain fasting lab work including thyroid panel for further evaluation. Obtaining hormone panel as well as this may be contribute towards perimenopausal symptoms. Physical Women Patient seen and examined. Comprehensive discussion was done on the following. 1. Nutrition: It is important to follow a healthy diet based on lots of vegetables and legumes and good fat. Avoid processed food and processed carbohydrates. Learn to prepare your own meals. Learn to read labels and avoid high fructose corn syrup, processed chemicals added to increase shelf life and preprepared meals. Avoid fast foods. Learn to eat slowly and plan meals for a week. Try to count calories and be mindful off daily calorie intake. Get into the habit of keeping an eye on your weight by using an appropriate scale. Learn to log exercise and discussed fitness Apps like Collections which can help keep log off calories taken versus calories burned. Local food should be preferred. Discussed Dirty Dozen Versus Clean Fifteen. Discussed healthy supplements like fish oil, Tumeric, Curcumin, Melatonin, Resveratrol, Probiotics, Vitamin-D, Alpha-Lipoic acid, Vitamin-D and coconut oil. 2. It is important to exercise regularly. Is a good habit to walk at least 30-45 minutes a day. Gentle weightlifting with standard precautions to protect the back. Finding activity like cycling or hiking and get into the habit of engaging in it. Stretching before and after the exercises important. It is also important to contact me if there are any problems like shortness of breath, chest pain, back pain and joint or muscle pain associated with the exercise. 3. Discussed age appropriate screening guidelines. Colonoscopy needs to start at age 50 with stool for occult blood as appropriate. There is a new test that can test for genetic abnormalities in the stool sample. This would not replace a colonoscopy but could be used as a screening tool for patients who do not want a colonoscopy. We discussed the importance of early detection of colon cancer. 4. Discussed current guidelines with respect to breast examination, mammogram and pap smear for early detection of breast and cervical cancer. Patient advised to follow up with these appointments. 5. Discussed safe driving and no use of smart phone while driving 6. Age-appropriate immunizations were discussed. A tetanus booster is needed every 10 years. Flu vaccine is recommended every year just before the start of the flu season. Shingles vaccine is recommended after age 50 but not all insurances cover it. Pneumonia vaccine is given after age 65 unless there are certain comorbidities for which it is started earlier. 7. Diagnostic labs were discussed. These could include CBC CMP and lipids with fasting blood glucose and insulin levels. Vitamin D and hemoglobin A1c testing might be appropriate. All questions have been answered to patient's satisfaction. Patient verbalized understanding of diagnosis and treatments explained. Advised to call sooner prior to next visit it any questions/concerns arise. Case discussed with Mayra SINGH who reviewed the assessment and plan. Chart, medications, labs, vital signs reviewed. Dictation was accomplished with the use of [employer] voice recognition software, which is prone to medical misidentifications and grammatical errors. This are unintentional and the practitioner does try to identify and correct these, but some could still be present. Please do not hesitate to contact practitioner for clarification. 04/23/2024 Well adult exam (ICD-10 - Z00.00) Negar is a pleasant 43-year-old female with a past medical history of Clifton's, essential hypertension, anxiety, headaches and seasonal allergies who presents to the office today for a full physical exam. Patient is up-to-date on all of her screenings and vaccinations at this time. #Cough: Azithromycin, prednisone prescribed today. Patient given a written prescription for guaifenesin codeine, she is to call the office if she cannot find this prescription and we will send Kaleb Mathias instead. Will follow-up with the patient in 2 weeks to ensure she is feeling better. #Essential hypertension: Patient's blood pressure reading in office is 140/90 #Clifton's: Patient currently follows with functional medicine, she is taking liothyronine sodium 5 mcg, levothyroxine sodium 88 mcg. Patient follows routinely with functional medicine provider every year. #Weight gain: Consider offering patient a weight management program, obtain fasting lab work including thyroid panel for further evaluation. Obtaining hormone panel as well as this may be contribute towards perimenopausal symptoms. Physical Women Patient seen and examined. Comprehensive discussion was done on the following. 1. Nutrition: It is important to follow a healthy diet based on lots of vegetables and legumes and good fat. Avoid processed food and processed carbohydrates. Learn to prepare your own meals. Learn to read labels and avoid high fructose corn syrup, processed chemicals added to increase shelf life and preprepared meals. Avoid fast foods. Learn to eat slowly and plan meals for a week. Try to count calories and be mindful off daily calorie intake. Get into the habit of keeping an eye on your weight by using an appropriate scale. Learn to log exercise and discussed fitness Apps like Collections which can help keep log off calories taken versus calories burned. Local food should be preferred. Discussed Dirty Dozen Versus Clean Fifteen. Discussed healthy supplements like fish oil, Tumeric, Curcumin, Melatonin, Resveratrol, Probiotics, Vitamin-D, Alpha-Lipoic acid, Vitamin-D and coconut oil. 2. It is important to exercise regularly. Is a good habit to walk at least 30-45 minutes a day. Gentle weightlifting with standard precautions to protect the back. Finding activity like cycling or hiking and get into the habit of engaging in it. Stretching before and after the exercises important. It is also important to contact me if there are any problems like shortness of breath, chest pain, back pain and joint or muscle pain associated with the exercise. 3. Discussed age appropriate screening guidelines. Colonoscopy needs to start at age 50 with stool for occult blood as appropriate. There is a new test that can test for genetic abnormalities in the stool sample. This would not replace a colonoscopy but could be used as a screening tool for patients who do not want a colonoscopy. We discussed the importance of early detection of colon cancer. 4. Discussed current guidelines with respect to breast examination, mammogram and pap smear for early detection of breast and cervical cancer. Patient advised to follow up with these appointments. 5. Discussed safe driving and no use of smart phone while driving 6. Age-appropriate immunizations were discussed. A tetanus booster is needed every 10 years. Flu vaccine is recommended every year just before the start of the flu season. Shingles vaccine is recommended after age 50 but not all insurances cover it. Pneumonia vaccine is given after age 65 unless there are certain comorbidities for which it is started earlier. 7. Diagnostic labs were discussed. These could include CBC CMP and lipids with fasting blood glucose and insulin levels. Vitamin D and hemoglobin A1c testing might be appropriate. All questions have been answered to patient's satisfaction. Patient verbalized understanding of diagnosis and treatments explained. Advised to call sooner prior to next visit it any questions/concerns arise. Case discussed with Mayra SINGH who reviewed the assessment and plan. Chart, medications, labs, vital signs reviewed. Dictation was accomplished with the use of [employer] voice recognition software, which is prone to medical misidentifications and grammatical errors. This are unintentional and the practitioner does try to identify and correct these, but some could still be present. Please do not hesitate to contact practitioner for clarification. 06/02/2024 Right ear pain (ICD-10 - H92.01) [...] Dictation was accomplished with the use of [employer] voice recognition software, prone to medical misidentifications [...] Dictation was accomplished with the use of [employer] voice recognition software, prone to medical misidentifications and grammatical errors. This is unintentional, and the practitioner does try to identify and correct these, but some could still be present. Please do not hesitate to contact practitioner for clarification. 04/23/2024 Clifton's disease (ICD-10 - E06.3) Negar is a pleasant 43-year-old female with a past medical history of Clifton's, essential hypertension, anxiety, headaches and seasonal allergies who presents to the office today for a full physical exam. Patient is up-to-date on all of her screenings and vaccinations at this time. #Cough: Azithromycin, prednisone prescribed today. Patient given a written prescription for guaifenesin codeine, she is to call the office if she cannot find this prescription and we will send Sarisofiyadonovan Mey instead. Will follow-up with the patient in 2 weeks to ensure she is feeling better. #Essential hypertension: Patient's blood pressure reading in office is 140/90 #Clifton's: Patient currently follows with functional medicine, she is taking liothyronine sodium 5 mcg, levothyroxine sodium 88 mcg. Patient follows routinely with functional medicine provider every year. #Weight gain: Consider offering patient a weight management program, obtain fasting lab work including thyroid panel for further evaluation. Obtaining hormone panel as well as this may be contribute towards perimenopausal symptoms. Physical Women Patient seen and examined. Comprehensive discussion was done on the following. 1. Nutrition: It is important to follow a healthy diet based on lots of vegetables and legumes and good fat. Avoid processed food and processed carbohydrates. Learn to prepare your own meals. Learn to read labels and avoid high fructose corn syrup, processed chemicals added to increase shelf life and preprepared meals. Avoid fast foods. Learn to eat slowly and plan meals for a week. Try to count calories and be mindful off daily calorie intake. Get into the habit of keeping an eye on your weight by using an appropriate scale. Learn to log exercise and discussed fitness Apps like Collections which can help keep log off calories taken versus calories burned. Local food should be preferred. Discussed Dirty Dozen Versus Clean Fifteen. Discussed healthy supplements like fish oil, Tumeric, Curcumin, Melatonin, Resveratrol, Probiotics, Vitamin-D, Alpha-Lipoic acid, Vitamin-D and coconut oil. 2. It is important to exercise regularly. Is a good habit to walk at least 30-45 minutes a day. Gentle weightlifting with standard precautions to protect the back. Finding activity like cycling or hiking and get into the habit of engaging in it. Stretching before and after the exercises important. It is also important to contact me if there are any problems like shortness of breath, chest pain, back pain and joint or muscle pain associated with the exercise. 3. Discussed age appropriate screening guidelines. Colonoscopy needs to start at age 50 with stool for occult blood as appropriate. There is a new test that can test for genetic abnormalities in the stool sample. This would not replace a colonoscopy but could be used as a screening tool for patients who do not want a colonoscopy. We discussed the importance of early detection of colon cancer. 4. Discussed current guidelines with respect to breast examination, mammogram and pap smear for early detection of breast and cervical cancer. Patient advised to follow up with these appointments. 5. Discussed safe driving and no use of smart phone while driving 6. Age-appropriate immunizations were discussed. A tetanus booster is needed every 10 years. Flu vaccine is recommended every year just before the start of the flu season. Shingles vaccine is recommended after age 50 but not all insurances cover it. Pneumonia vaccine is given after age 65 unless there are certain comorbidities for which it is started earlier. 7. Diagnostic labs were discussed. These could include CBC CMP and lipids with fasting blood glucose and insulin levels. Vitamin D and hemoglobin A1c testing might be appropriate. All questions have been answered to patient's satisfaction. Patient verbalized understanding of diagnosis and treatments explained. Advised to call sooner prior to next visit it any questions/concerns arise. Case discussed with Mayra SINGH who reviewed the assessment and plan. Chart, medications, labs, vital signs reviewed. Dictation was accomplished with the use of [employer] voice recognition software, which is prone to [...] Dictation was accomplished with the use of [employer] voice recognition software, which is prone to medical misidentifications and grammatical errors. This are unintentional and the practitioner does try to identify and correct these, but some could still be present. Please do not hesitate to contact practitioner for clarification. 04/23/2024 Essential hypertension (ICD-10 - I10) Negar is a pleasant 43-year-old female with a past medical history of Clifton's, essential hypertension, anxiety, headaches and seasonal allergies who presents to the office today for a full physical exam. Patient is up-to-date on all of her screenings and vaccinations at this time. #Cough: Azithromycin, prednisone prescribed today. Patient given a written prescription for guaifenesin codeine, she is to call the office if she cannot find this prescription and we will send Kaleb Mathias instead. Will follow-up with the patient in 2 weeks to ensure she is feeling better. #Essential hypertension: Patient's blood pressure reading in office is 140/90 #Clifton's: Patient currently follows with functional medicine, she is taking liothyronine sodium 5 mcg, levothyroxine sodium 88 mcg. Patient follows routinely with functional medicine provider every year. #Weight gain: Consider offering patient a weight management program, obtain fasting lab work including thyroid panel for further evaluation. Obtaining hormone panel as well as this may be contribute towards perimenopausal symptoms. Physical Women Patient seen and examined. Comprehensive discussion was done on the following. 1. Nutrition: It is important to follow a healthy diet based on lots of vegetables and legumes and good fat. Avoid processed food and processed carbohydrates. Learn to prepare your own meals. Learn to read labels and avoid high fructose corn syrup, processed chemicals added to increase shelf life and preprepared meals. Avoid fast foods. Learn to eat slowly and plan meals for a week. Try to count calories and be mindful off daily calorie intake. Get into the habit of keeping an eye on your weight by using an appropriate scale. Learn to log exercise and discussed fitness Apps like Collections which can help keep log off calories taken versus calories burned. Local food should be preferred. Discussed Dirty Dozen Versus Clean Fifteen. Discussed healthy supplements like fish oil, Tumeric, Curcumin, Melatonin, Resveratrol, Probiotics, Vitamin-D, Alpha-Lipoic acid, Vitamin-D and coconut oil. 2. It is important to exercise regularly. Is a good habit to walk at least 30-45 minutes a day. Gentle weightlifting with standard precautions to protect the back. Finding activity like cycling or hiking and get into the habit of engaging in it. Stretching before and after the exercises important. It is also important to contact me if there are any problems like shortness of breath, chest pain, back pain and joint or muscle pain associated with the exercise. 3. Discussed age appropriate screening guidelines. Colonoscopy needs to start at age 50 with stool for occult blood as appropriate. There is a new test that can test for genetic abnormalities in the stool sample. This would not replace a colonoscopy but could be used as a screening tool for patients who do not want a colonoscopy. We discussed the importance of early detection of colon cancer. 4. Discussed current guidelines with respect to breast examination, mammogram and pap smear for early detection of breast and cervical cancer. Patient advised to follow up with these appointments. 5. Discussed safe driving and no use of smart phone while driving 6. Age-appropriate immunizations were discussed. A tetanus booster is needed every 10 years. Flu vaccine is recommended every year just before the start of the flu season. Shingles vaccine is recommended after age 50 but not all insurances cover it. Pneumonia vaccine is given after age 65 unless there are certain comorbidities for which it is started earlier. 7. Diagnostic labs were discussed. These could include CBC CMP and lipids with fasting blood glucose and insulin levels. Vitamin D and hemoglobin A1c testing might be appropriate. All questions have been answered to patient's satisfaction. Patient verbalized understanding of diagnosis and treatments explained. Advised to call sooner prior to next visit it any questions/concerns arise. Case discussed with Mayra SINGH who reviewed the assessment and plan. Chart, medications, labs, vital signs reviewed. Dictation was accomplished with the use of [employer] voice recognition software, which is prone to medical misidentifications and grammatical errors. This are unintentional and the practitioner does try to identify and correct these, but some could still be present. Please do not hesitate to contact practitioner for clarification. 04/23/2024 Anxiety (ICD-10 - F41.9) Negar is a pleasant 43-year-old female with a past medical history of Clifton's, essential hypertension, anxiety, headaches and seasonal allergies who presents to the office today for a full physical exam. Patient is up-to-date on all of her screenings and vaccinations at this time. #Cough: Azithromycin, prednisone prescribed today. Patient given a written prescription for guaifenesin codeine, she is to call the office if she cannot find this prescription and we will send Deandonovan Mey instead. Will follow-up with the patient in 2 weeks to ensure she is feeling better. #Essential hypertension: Patient's blood pressure reading in office is 140/90 #Clifton's: Patient currently follows with functional medicine, she is taking liothyronine sodium 5 mcg, levothyroxine sodium 88 mcg. Patient follows routinely with functional medicine provider every year. #Weight gain: Consider offering patient a weight management program, obtain fasting lab work including thyroid panel for further evaluation. Obtaining hormone panel as well as this may be contribute towards perimenopausal symptoms. Physical Women Patient seen and examined. Comprehensive discussion was done on the following. 1. Nutrition: It is important to follow a healthy diet based on lots of vegetables and legumes and good fat. Avoid processed food and processed carbohydrates. Learn to prepare your own meals. Learn to read labels and avoid high fructose corn syrup, processed chemicals added to increase shelf life and preprepared meals. Avoid fast foods. Learn to eat slowly and plan meals for a week. Try to count calories and be mindful off daily calorie intake. Get into the habit of keeping an eye on your weight by using an appropriate scale. Learn to log exercise and discussed fitness Apps like Collections which can help keep log off calories taken versus calories burned. Local food should be preferred. Discussed Dirty Dozen Versus Clean Fifteen. Discussed healthy supplements like fish oil, Tumeric, Curcumin, Melatonin, Resveratrol, Probiotics, Vitamin-D, Alpha-Lipoic acid, Vitamin-D and coconut oil. 2. It is important to exercise regularly. Is a good habit to walk at least 30-45 minutes a day. Gentle weightlifting with standard precautions to protect the back. Finding activity like cycling or hiking and get into the habit of engaging in it. Stretching before and after the exercises important. It is also important to contact me if there are any problems like shortness of breath, chest pain, back pain and joint or muscle pain associated with the exercise. 3. Discussed age appropriate screening guidelines. Colonoscopy needs to start at age 50 with stool for occult blood as appropriate. There is a new test that can test for genetic abnormalities in the stool sample. This would not replace a colonoscopy but could be used as a screening tool for patients who do not want a colonoscopy. We discussed the importance of early detection of colon cancer. 4. Discussed current guidelines with respect to breast examination, mammogram and pap smear for early detection of breast and cervical cancer. Patient advised to follow up with these appointments. 5. Discussed safe driving and no use of smart phone while driving 6. Age-appropriate immunizations were discussed. A tetanus booster is needed every 10 years. Flu vaccine is recommended every year just before the start of the flu season. Shingles vaccine is recommended after age 50 but not all insurances cover it. Pneumonia vaccine is given after age 65 unless there are certain comorbidities for which it is started earlier. 7. Diagnostic labs were discussed. These could include CBC CMP and lipids with fasting blood glucose and insulin levels. Vitamin D and hemoglobin A1c testing might be appropriate. All questions have been answered to patient's satisfaction. Patient verbalized understanding of diagnosis and treatments explained. Advised to call sooner prior to next visit it any questions/concerns arise. Case discussed with Mayra SINGH who reviewed the assessment and plan. Chart, medications, labs, vital signs reviewed. Dictation was accomplished with the use of [employer] voice recognition software, which is prone to [...] MS 03/05/2024 Next Appt Details Provider Name:NURY MICAH, 10:30:00 AM, [address], [place], [address], Insurance Providers Payer Name Payer Address Payer Phone Subscriber Number Group Number Insured Name Patient Relationship to Insured Coverage Start Date Coverage End Date [facility] [address] [place] [address] [id number] Darien Elias Negar Self - patient is the insured MEDICAL (GENERAL) HISTORY Medical History History ICD Code 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
--- OUTSIDE RECORDS SUMMARY | 2024-06-09 17:58 | XMS_ITS ---
Author Organization [facility] Address [address] [place] [address] Care Team Providers Care Person Investigator Name Role Phone SHOAIB ACKERMAN Unavailable [phone] NURY OBRIEN Unavailable [phone] REASON FOR VISIT 3 week f/u Encounters Encounter Location Date Provider Diagnosis [facility] [address] [place] [address] 06/02/2024 NURY OBRIEN PLAN OF TREATMENT Next Appt Details Provider Name:NURY OBRIEN, 10:30:00 AM, [address] , [place], [address], Progress Notes * Negar SCOTTDOB:1980 ([age] yo F)Acc No.[id number]:06/02/2024 Progress Notes Patient:??Negar SCOTT Provider:??NURY OBRIEN PA-C :1980?Age:43 Y?Sex:Fe male Date:06/02/2024 [facility] Subjective: * Chief Complaints: * ?1. 3 week f/u. * Medical History:?? Objective: Assessment: Plan: * Treatment: * Images: Billing Information: * Visit Code:?? * Procedure Codes:?? Care Plan Details* * Sign off status: Pending * Provider:??NURY OBRIEN PA-C Date:??06/02
== END 2024-06-09 15:44 | disposition home or self-care (01) ==
LOC: HO.HWS 15:08
PROVIDERS: PCP Family Medicine; Visit Provider Obstetrics & Gynecology
DX: Z32.02 Encounter for pregnancy test, result negative (principal); N93.9 Abnormal uterine and vaginal bleeding, unspecified
CPT/HCPCS: 99213

== ENCOUNTER 2024-06-09 15:32 | Outpatient (REF) | payer BC, SELFPAY | END 2024-06-09 15:33 | disposition home or self-care (01) | LOC: HO.LAB 15:32 | PROVIDERS: PCP Internal Medicine; Visit Provider Obstetrics & Gynecology | DX: Z13.89 Encounter for screening for other disorder (principal) ==

== ENCOUNTER 2024-06-16 15:51 | Outpatient (REF) | payer BC, SELFPAY | END 2024-06-16 15:52 | disposition home or self-care (01) | LOC: HO.LNP 15:51 | PROVIDERS: PCP Internal Medicine; Visit Provider Obstetrics & Gynecology | DX: N93.9 Abnormal uterine and vaginal bleeding, unspecified (principal) | CPT/HCPCS: 58100; 81025; 88305 ==

== ENCOUNTER 2024-06-16 15:51 | Outpatient (AMB) | payer BC, SELFPAY ==
--- NOTE | 2024-06-16 15:59 | MHC.OFFVIS ---
Vital Signs 06/16/24 16:05 Height 5 ft 2 in Weight 175 lb BMI 32.0 BP 142/100 H Intake Visit Reasons: EMB Phlebotomist Supervisor/Instructor Required: No Information Interpreted: non-clinical & clinical Sampling Expert: Sampling Expert Present (Rika Almaraz MELISSA) Accompanied by: Self / Same As Patient Allergies amoxicillin [From Augmentin] Adverse Reaction (Intermediate, Verified 06/16/24 16:07) vomiting clavulanic acid [From Augmentin] Adverse Reaction (Intermediate, Verified 06/16/24 16:07) vomiting Doxycycline (Rosacea) Allergy (Unknown, Uncoded 06/16/24 16:07) vomiting Is last menstrual period known: No (mirena) HPI Comments Details: Presenting for EMB [facility] Medical History Vitamin D deficiency Hypoglycemia Hypothyroidism Surgical History No history of previous surgery Family History Mother Family history of thyroid problem Father Type 1 diabetes Maternal Grandfather Type 2 diabetes mellitus Maternal Grandmother Family history of thyroid problem Social History Household Members: Spouse and Children Housing: House Alcohol intake: never Patient Tobacco Use Status: Never used Tobacco e-Cigarette/Vaping Use: Never Used Second Hand Smoke Exposure: No service: No Current occupational exposures/hazards: No Gender identity: Female Cognitive needs: No Hearing needs: No Vision needs: No Female Reproductive History Menstrual Age of Menarche: 12 Review of Systems Const All systems reviewed & are unremarkable except as noted in HPI and below Reports as per HPI and Reports no additional complaints GI Reports no additional complaints Reports no additional complaints Physical Exam Vital Signs: Last Vital Signs BP 142/100 H 06/16/24 16:05 BMI result Body Mass Index 32.0 Office Procedures Endometrial Biopsy Details: The patient was counseled regarding the indication and benefits of endometrial sampling to rule out endometrial pathology including not limited to endometrial hyperplasia or endometrial cancer and others; The alternatives (Either do nothing vs. hysteroscopy D&C) & the risks were discussed with the patient including but not limited: pain, uterine perforation, bleeding, infection, possible injury to bladder, bowel, ureter, possible need for blood transfusion with all its possible risks. The patient verbalized understanding all questions answered and signed consent. Urine test done in the office was negative The patient was placed into the dorsal lithotomy position; a speculum was inserted in the vagina. Using aseptic technique for the procedure, the cervix was cleansed with Betadine. The anterior lip of the cervix was grasped with a single tooth tenaculum. The uterus was sounded to 7 cm with a 4 mm Pipelle was used. Tissues samples were obtained and placed in formalin, in a patient labeled container and sent to the pathology department. At the end of the procedure, there was minimal bleeding noted The patient tolerated the procedure well and was discharged in good condition with the following instructions: Nothing in the vagina until the bleeding stops. No sex until the bleeding stops, to call if any of the following occurs: fever (>100.4), flu-like symptoms, abdominal pain, heavy bleeding, four smelling vaginal discharge. The patient was instructed to schedule a Follow up appointment in 2 weeks to discuss pathology results of the biopsy and treatment options. This note was generated with a voice recognition program. Some errors may have been overlooked during the review of this note. Sometimes these errors may affect the content or meaning of a given sentence. [id number] Biopsy Results AMB Test Urine AMB Test Urine Negative Last Edit by Rika Almaraz CMA on 06/16/24 16:09 Assessment & Plan Assessment & Plan (1) Abnormal uterine bleeding (AUB): Comment: On Mirena IUD Code(s): N93.9 - Abnormal uterine and vaginal bleeding, unspecified Category: Medical Plan: EMB done, see procedure note Orders: Orders AMB HCG Urine Test Today Z32.02 - Encounter for test, result negative AMB Endometrial Biopsy Today N93.9 - Abnormal uterine and vaginal bleeding, unspecified Coding Level of Care Code Procedure Only Diagnoses Abnormal uterine bleeding (AUB) N93.9 CPT Codes Endometrial Biopsy - CPT: 80127-Qftmeldtgds Biopsy ([id number])
[2024-06-16 16:05] VITALS: BP 142/100; BMI 32.0
--- OUTSIDE RECORDS SUMMARY | 2024-06-16 18:46 | XMS_ITS ---
Author Organization [facility] Address [address] [place] [address] Care Team Providers Care Lidder Name Role Phone SHOAIB ACKERMAN Unavailable [phone] NURY OBRIEN Unavailable [phone] REASON FOR VISIT 3 week f/u Encounters Encounter Location Date Provider Diagnosis [facility] [address] [place] [address] 06/02/2024 NURY OBRIEN PLAN OF TREATMENT Next Appt Details Provider Name:NURY OBRIEN, 10:30:00 AM, [address] , [place], [address], Progress Notes * Negar SCOTTDOB:1980 ([age] yo F)Acc No.[id number]:06/02/2024 Progress Notes Patient:??Negar SCOTT Provider:??NURY OBRIEN PA-C :1980?Age:43 Y?Sex:Fe male Date:06/02/2024 [facility] Subjective: * Chief Complaints: * ?1. 3 week f/u. * Medical History:?? Objective: Assessment: Plan: * Treatment: * Images: Billing Information: * Visit Code:?? * Procedure Codes:?? Care Plan Details* * Sign off status: Pending * Provider:??NURY OBRIEN PA-C Date:??06/02
--- OUTSIDE RECORDS SUMMARY | 2024-06-16 18:46 | XMS_ITS ---
Author Organization [facility] Address [address] [place] [address] Care Team Providers Care C D Still Operator Name Role Phone SHOAIB ACKERMAN Unavailable [phone] LACEY BOSWELLY Unavailable [phone] ALLERGIES Allergen (clinical drug ingredient) Drug/Non Drug [...] ROAD [facility] [address] [place] [address] 06/02/2024 MARK BOSWELL Right ear pain H92.01 [...] Dictation was accomplished with the use of [employer] voice recognition software, prone to medical misidentifications [...] Dictation was accomplished with the use of [employer] voice recognition software, prone to medical misidentifications [...] Name:NURY CYR, 10:30:00 AM, [address], [place], [address], Progress Notes * Surekha SCOTT:1980 ([age] yo F)Acc No.[id number]:06/02/2024 Progress Notes Patient:??Negar SCOTT Provider:??MARK CHAPMAN PA-C :1980?Age:43 Y?Sex:Fe male Date:06/02/2024 Address:[address] [place], [place] [address] Subjective: * Chief Complaints: * ?1. Pt presents in offi ce today for urgent care visit with concerns of blocked ears without pain. * HPI: ?Constitutional:? Negar is a pleasant 43-year-old female with a past medical history of Clifton's, anxiety, seasonal allergies and headaches who presents to the office today for a blocked ear. She reports she flew to [facility] recently and on the plane ride home [...] Dictation was accomplished with the use of [employer] voice recognition software, prone to medical misidentifications and grammatical errors. This is unintentional, and the practitioner does try to identify and correct these, but some could still be present. Please do not hesitate to contact practitioner for clarification. Plan: * Treatment: Care Plan: * Problems:?? * Images: Billing Information: * Visit Code:?? 40244 Office Visit, Est Pt., Level 3. Modifiers: [...] blocked ear. She reports she flew to [facility] recently and on the plane ride home last Saturday her ears popped. She reports associated R ear pressure and fullness with minimal nasal congestion. She's tried flonase, shauna, afrin, hyaline's clogging drops, and hydrogen peroxide drops without relief in symptoms. Has also tried mechanical decompression by blowing her nose and popping her ears. She presented to [facility] on Saturday who prescribed her oral prednisone [...]
--- OUTSIDE RECORDS SUMMARY | 2024-06-16 18:46 | XMS_ITS | Clinical Summary ---
Author Organization [facility] Address [address] [id number] Care Team Providers Care Yardage Tufting Machine Operator Name Role Phone Neisha Ramirez APRN Primary Care Provider +1- [phone] Allergies Active Allergy Reactions Criticality Noted Date [...] age to complete this topic Care Teams Yardage Tufting Machine Operator Relationship Specialty Start Date End Date Neisha Ramirez, COST ESTIMATOR [address] [facility] 2 Stephania Pacheco [place] [address] PCP - General Family Medicine 09/16/17
--- OUTSIDE RECORDS SUMMARY | 2024-06-16 18:46 | XMS_ITS | Patient Health Record ---
Author Organization [facility] Address [address] [place] [address] Care Team Providers Care Freight Loader Name Role Phone SHOAIB ACKERMAN Unavailable [phone] MARK BOSWELL Unavailable [phone] NURY OBRIEN Unavailable [phone] ALLERGIES Allergen (clinical drug ingredient) Drug/Non Drug [...] unspecified (E55.9) Active confirmed Vitamin D deficiency (10506477) Problem Encounter for screening for lipoid disorders (Z13.220) Active confirmed Lipid screening (143047979) Problem Essential hypertension (I10) Active confirmed 68331148 Problem Anxiety (F41.9) Active confirmed Anxiet y (35868350) Problem Adult general medical exam (Z00.00) Active confirmed Adult health examination (874845464) Problem Seasonal allergies (J30.2) Active confirmed Seasonal allergy (271394644) Problem Weight gain (R63.5) Active confirmed Weight gain (326983684) Problem Anemia due to vitamin B12 deficiency, unspecified B12 deficiency type (D51.9) Active confirmed Vitamin B>12< deficiency anaemia (63501172) 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 80340122 Problem Encounter for screening for endocrine disorder (Z13.29) Active confirmed Endocrine/metab olic screening (417765204) VITAL SIGNS Heart Rate 93 /min 06/02/2024 Blood pressure diastolic 88 mm Hg 06/02/2024 Oximetry 99 % 06/02/2024 Height 62 in 06/02/2024 Blood pressure systolic 140 mm Hg 06/02/2024 Weight 178.5 lbs 06/02/2024 BMI 32.64 kg/m2 06/02/2024 Encounters Encounter Location Date Provider Diagnosis [facility] [address] [place] [address] 05/21/2024 NURY MICAH [facility] [address] [place] [address] 06/02/2024 NURY MICAH 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 [address] [place] [address] 06/02/2024 MARK BOSWELL Right ear pain H92.0 1 and Non-recurrent acute serous otitis media of right ear H65.01 [facility] [address] [place] [address] 03/20/[address] [facility] [address] [place] [address] 04/14/[address] [facility] [address] [place] [address] 04/23/2024 NURY MICAH [facility] [address] [place] [address] 06/01/2024 SHOAIB TYRON [address] [place] [address] 03/14/2024 NURY MICAH [address] [place] [address] 04/08/2024 SHOAIB TYRON [address] [place] [address] 05/04/2024 SHOAIB TYRON [address] [place] [address] 05/05/2024 SHOAIB TYRON [address] [place] [address] 05/17/2024 SHOAIB TYRON [address] [place] [address] 05/17/2024 SHOAIB TYRON [address] [place] [address] 05/28/2024 SHOAIB TYRON ASSESSMENTS Encounter Date Diagnosis [...] Dictation was accomplished with the use of [employer] voice recognition software, which is prone to [...] Dictation was accomplished with the use of [employer] voice recognition software, which is prone to [...] log exercise and discussed fitness Apps like [employer] which can help keep log off calories [...] Dictation was accomplished with the use of [employer] voice recognition software, which is prone to [...] log exercise and discussed fitness Apps like [employer] which can help keep log off calories [...] Dictation was accomplished with the use of [employer] voice recognition software, which is prone to [...] Dictation was accomplished with the use of [employer] voice recognition software, prone to medical misidentifications [...] Dictation was accomplished with the use of [employer] voice recognition software, prone to medical misidentifications [...] log exercise and discussed fitness Apps like [employer] which can help keep log off calories [...] Dictation was accomplished with the use of [employer] voice recognition software, which is prone to [...] Dictation was accomplished with the use of [employer] voice recognition software, which is prone to [...] log exercise and discussed fitness Apps like [employer] which can help keep log off calories [...] Dictation was accomplished with the use of [employer] voice recognition software, which is prone to [...] blood pressure reading in office is 140/90 #Cliftno's: Patient currently follows with functional medicine, she [...] log exercise and discussed fitness Apps like [employer] which can help keep log off calories [...] Dictation was accomplished with the use of [employer] voice recognition software, which is prone to [...] Name:NURY MICAH, 10:30:00 AM, [address], [place], [address], Insurance Providers Payer Name Payer Address Payer Phone Subscriber Number Group Number Insured Name Patient Relationship to Insured Coverage Start Date Coverage End Date [facility] [address] [place] [address] [id number] Darien Elias Negar Self - patient is the insured MEDICAL (GENERAL) HISTORY Medical History History ICD Code 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
--- OUTSIDE RECORDS SUMMARY | 2024-06-16 18:46 | XMS_ITS ---
Author Organization [facility] Address [address] [place] [address] Care Team Providers Care Border Police Name Role Phone TYRON, SHOAIB Unavailable [phone] REASON FOR VISIT urgent Encounters Encounter Location Date Provider Diagnosis [facility] [address] [place] [address] 06/01/2024 SHOAIB ACKERMAN PLAN OF TREATMENT Next Appt Details Provider Name:NURY OBRIEN, 10:30:00 AM, [address] , [place], [address], Progress Notes * Negar SCOTTDOB:1980 ([age] yo F)Acc No.[id number]:06/01/2024 Patient:??Negar SCOTT :1980?Age:43 Y?Sex:Fe male Address: [place] [address] * true * Date:??
== END 2024-06-16 16:23 | disposition home or self-care (01) ==
LOC: HO.HWS 15:51
PROVIDERS: PCP Internal Medicine; Visit Provider Obstetrics & Gynecology
DX: N93.9 Abnormal uterine and vaginal bleeding, unspecified (principal); Z32.02 Encounter for pregnancy test, result negative
CPT/HCPCS: 58100

== ENCOUNTER 2024-07-07 16:16 | Outpatient (REF) | payer BC, SELFPAY ==
--- NOTE | ~2024-07-07 | US_ITS ---
EXAMINATION: US PELVIS TRANSABDOMINAL AND TRANSVAGINAL HISTORY: N93.9 - Abnormal uterine and vaginal bleeding, unspecified COMPARISON: Comparison is made with the prior examination dated 03/08/2023. TECHNIQUE: Transabdominal and endovaginal real-time 2D arciniega-scale ultrasound was performed. FINDINGS: Uterus: The uterus is normal in size, measuring 12.0 x 3.6 x 5.4 cm. Myometrium has a normal echotexture. No fibroids are identified. Endometrium: The endometrial stripe is not well visualized due to the presence of an IUD, which is in satisfactory position. Right ovary: The right ovary measures 3.4 x 2.2 x 2.7 cm. There is a 2.8 x 1.8 x 1.8 cm cyst. Left ovary: The left ovary measures 2.6 x 1.7 x 2.3 cm. The left ovary is normal in size and echotexture. Pelvic fluid: none. US/US pelvic and transvaginal IMPRESSION: 1. IUD in appropriate position in the endometrial cavity. The IUD obscures the endometrial stripe. 2. 2.8 x 1.8 x 1.8 cm right ovarian cyst. Electronically signed by: Jose Antonio Ballard MD 07/08/2024 04:46 PM EDT
--- OUTSIDE RECORDS SUMMARY | 2024-07-07 18:25 | XMS_ITS ---
Author Organization [facility] Address [address] [place] [address] Care Team Providers Care Activities Therapist Name Role Phone SHOABI ACKERMAN Unavailable [phone] NURY OBRIEN Unavailable [phone] REASON FOR VISIT 3 week f/u Encounters Encounter Location Date Provider Diagnosis [facility] [address] [place] [address] 06/02/2024 NURY OBRIEN PLAN OF TREATMENT Next Appt Details Provider Name:NURY OBRIEN, 10:30:00 AM, [address] , [place], [address], Progress Notes * Negar SCOTTDOB:1980 ([age] yo F)Acc No.[id number]:06/02/2024 Progress Notes Patient:??Negar SCOTT Provider:??NURY OBRIEN PA-C :1980?Age:43 Y?Sex:Fe male Date:06/02/2024 [id number] Subjective: * Chief Complaints: * ?1. 3 week f/u. * Medical History:?? Objective: Assessment: Plan: * Treatment: * Images: Billing Information: * Visit Code:?? * Procedure Codes:?? Care Plan Details* * Sign off status: Pending * Provider:??NURY OBRIEN PA-C Date:??06/02
--- OUTSIDE RECORDS SUMMARY | 2024-07-07 18:25 | XMS_ITS | Clinical Summary ---
Author Organization [facility] Address [address] [id number] Care Team Providers Care Card Doffer Name Role Phone Neisha Ramirez APRN Primary Care Provider +1- [phone] Allergies Active Allergy Reactions Criticality Noted Date [...] age to complete this topic Care Teams Card Doffer Relationship Specialty Start Date End Date Neisha Ramirez, ROBOTIC WELDER [address] [facility] 2 Stephania Pacheco [place] [address] PCP - General Family Medicine 09/16/17
--- OUTSIDE RECORDS SUMMARY | 2024-07-07 18:25 | XMS_ITS ---
Author Organization [facility] Address [address] [place] [address] Care Team Providers Care Terminal Operations Supervisor Name Role Phone SHOAIB ACKERMAN Unavailable [phone] LACEY BOSWELLY Unavailable [phone] ALLERGIES Allergen (clinical drug ingredient) Drug/Non Drug [...] ROAD [facility] [address] [place] [address] 06/02/2024 MARK BOSWELL Right ear pain H92.01 [...] Dictation was accomplished with the use of [employer] voice recognition software, prone to medical misidentifications [...] Dictation was accomplished with the use of [employer] voice recognition software, prone to medical misidentifications [...] Name:NURY CYR, 10:30:00 AM, [address], [place], [address], Progress Notes * Surekha SCOTT:1980 ([age] yo F)Acc No.[id number]:06/02/2024 Progress Notes Patient:??Negar SCOTT Provider:??MARK CHAPMAN PA-C :1980?Age:43 Y?Sex:Fe male Date:06/02/2024 Address:[address] [place], [place] [address] Subjective: * Chief Complaints: * ?1. Pt presents in offi ce today for urgent care visit with concerns of blocked ears without pain. * HPI: ?Constitutional:? Negar is a pleasant 43-year-old female with a past medical history of Clifton's, anxiety, seasonal allergies and headaches who presents to the office today for a blocked ear. She reports she flew to [facility] recently and on the plane ride [...] Dictation was accomplished with the use of [employer] voice recognition software, prone to medical misidentifications and grammatical errors. This is unintentional, and the practitioner does try to identify and correct these, but some could still be present. Please do not hesitate to contact practitioner for clarification. Plan: * Treatment: Care Plan: * Problems:?? * Images: Billing Information: * Visit Code:?? 62500 Office Visit, Est Pt., Level 3. Modifiers: [...] blocked ear. She reports she flew to [facility] recently and on the plane ride home last Saturday her ears popped. She reports associated R ear pressure and fullness with minimal nasal congestion. She's tried flonase, shauna, afrin, hyaline's clogging drops, and hydrogen peroxide drops without relief in symptoms. Has also tried mechanical decompression by blowing her nose and popping her ears. She presented to [facility] on Saturday who prescribed her oral prednisone [...]
--- OUTSIDE RECORDS SUMMARY | 2024-07-07 18:25 | XMS_ITS | Patient Health Record ---
Author Organization [facility] Address [address] [place] [address] Care Team Providers Care Customer Solutions Representative Name Role Phone SHOAIB ACKERMAN Unavailable [phone] MARK BOSWELL Unavailable [phone] NURY OBRIEN Unavailable [phone] ALLERGIES Allergen (clinical drug ingredient) Drug/Non Drug [...] unspecified (E55.9) Active confirmed Vitamin D deficiency (82926260) Problem Encounter for screening for lipoid disorders (Z13.220) Active confirmed Lipid screening (952628617) Problem Essential hypertension (I10) Active confirmed 79852903 Problem Anxiety (F41.9) Active confirmed Anxiet y (53831959) Problem Adult general medical exam (Z00.00) Active confirmed Adult health examination (069965019) Problem Seasonal allergies (J30.2) Active confirmed Seasonal allergy (687007796) Problem Weight gain (R63.5) Active confirmed Weight gain (391945845) Problem Anemia due to vitamin B12 deficiency, unspecified B12 deficiency type (D51.9) Active confirmed Vitamin B>12< deficiency anaemia (19097900) 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 94701362 Problem Encounter for screening for endocrine disorder (Z13.29) Active confirmed Endocrine/metab olic screening (486307930) VITAL SIGNS Heart Rate 93 /min 06/02/2024 Blood pressure diastolic 88 mm Hg 06/02/2024 Oximetry 99 % 06/02/2024 Height 62 in 06/02/2024 Blood pressure systolic 140 mm Hg 06/02/2024 Weight 178.5 lbs 06/02/2024 BMI 32.64 kg/m2 06/02/2024 Encounters Encounter Location Date Provider Diagnosis [facility] [address] [place] [address] 05/21/2024 NRUY MICAH [facility] [address] [place] [address] 06/02/2024 NURY MICAH [facility] [address] [place] [address] 03/05/2024 NURY MICAH Weight gain R63.5 ; Clifton's disease E06.3 and Essential hypertension I10 [facility] [address] [place] [address] 04/23/2024 NURY MICAH Weight gain R63.5 ; Well adult exam Z00.00 ; Clifton's disease E06.3 ; Essential hypertension I10 and Anxiety F41.9 [facility] [address] [place] [address] 06/02/2024 MARK BOSWELL Right ear pain H92.0 1 and Non-recurrent acute serous otitis media of right ear H65.01 [facility] [address] [place] [address] 03/20/[address] [facility] [address] [place] [address] 04/14/[address] [facility] [address] [place] [address] 04/23/2024 NURY MICAH [facility] [address] [place] [address] 06/01/2024 SHOAIB TYRON [address] [place] [address] 03/14/2024 NURY MICAH [address] [place] [address] 04/08/2024 SHOAIB TYRON [address] [place] [address] 05/04/2024 SHOAIB TYRON [address] [place] [address] 05/05/2024 SHOAIB TYRON [address] [place] [address] 05/17/2024 SHOAIB TYRON [address] [place] [address] 05/17/2024 SHOAIB TYRON [address] [place] [address] 05/28/2024 SHOAIB TYRON ASSESSMENTS Encounter Date Diagnosis [...] Dictation was accomplished with the use of [employer] voice recognition software, which is prone to [...] Dictation was accomplished with the use of [employer] voice recognition software, which is prone to [...] log exercise and discussed fitness Apps like [employer] which can help keep log off calories [...] Dictation was accomplished with the use of [employer] voice recognition software, which is prone to [...] log exercise and discussed fitness Apps like [employer] which can help keep log off calories [...] Dictation was accomplished with the use of [employer] voice recognition software, which is prone to [...] Dictation was accomplished with the use of [employer] voice recognition software, prone to medical misidentifications [...] Dictation was accomplished with the use of [employer] voice recognition software, prone to medical misidentifications [...] log exercise and discussed fitness Apps like [employer] which can help keep log off calories [...] Dictation was accomplished with the use of [employer] voice recognition software, which is prone to [...] Dictation was accomplished with the use of [employer] voice recognition software, which is prone to [...] log exercise and discussed fitness Apps like [employer] which can help keep log off calories [...] Dictation was accomplished with the use of [employer] voice recognition software, which is prone to [...] log exercise and discussed fitness Apps like [employer] which can help keep log off calories [...] Dictation was accomplished with the use of [employer] voice recognition software, which is prone to [...] Name:NURY MICAH, 10:30:00 AM, [address], [place], [address], Insurance Providers Payer Name Payer Address Payer Phone Subscriber Number Group Number Insured Name Patient Relationship to Insured Coverage Start Date Coverage End Date [facility] [address] [place] [address] [id number] Darien Elias Negar Self - patient is the insured MEDICAL (GENERAL) HISTORY Medical History History ICD Code 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
--- OUTSIDE RECORDS SUMMARY | 2024-07-07 18:25 | XMS_ITS ---
Author Organization [facility] Address [address] [place] [address] Care Team Providers Care Engineer System Administrator Name Role Phone TYRON, SHOAIB Unavailable [phone] REASON FOR VISIT urgent Encounters Encounter Location Date Provider Diagnosis [facility] [address] [place] [address] 06/01/2024 SHOAIB ACKERMAN PLAN OF TREATMENT Next Appt Details Provider Name:NURY OBREIN, 10:30:00 AM, [address] , [place], [address], Progress Notes * Negar SCOTTDOB:1980 ([age] yo F)Acc No.[id number]:06/01/2024 Patient:??Negar SCOTT :1980?Age:43 Y?Sex:Fe male Address:[address] [place] [address] * true * Date:??
== END 2024-07-07 16:17 | disposition home or self-care (01) ==
LOC: HO.US 16:16
PROVIDERS: PCP Internal Medicine; Visit Provider Obstetrics & Gynecology
DX: N93.9 Abnormal uterine and vaginal bleeding, unspecified (principal)
CPT/HCPCS: 76830; 76856

== ENCOUNTER → 2024-07-07 16:18 | Outpatient (BNV) | payer BC, SELFPAY | PROVIDERS: PCP Internal Medicine; Visit Provider Radiology Diagnostic Radiology | DX: N83.201 Unspecified ovarian cyst, right side (principal); N93.9 Abnormal uterine and vaginal bleeding, unspecified | CPT/HCPCS: 76830; 76856 ==

== ENCOUNTER 2024-07-15 15:53 | Outpatient (AMB) | payer BC, SELFPAY ==
--- NOTE | 2024-07-15 15:56 | MHC.OFFVIS ---
Vital Signs 07/15/24 16:00 Height 5 ft 2 in Weight 175 lb BMI 32.0 Intake Visit Reasons: ultrasound results Home Agent Required: No Information Interpreted: non-clinical & clinical Accompanied by: Spouse Allergies amoxicillin [From Augmentin] Adverse Reaction (Intermediate, Verified 07/15/24 16:01) vomiting clavulanic acid [From Augmentin] Adverse Reaction (Intermediate, Verified 07/15/24 16:01) vomiting Doxycycline (Rosacea) Allergy (Unknown, Uncoded 07/15/24 16:01) vomiting HPI Comments Details: The patient is presenting for follow-up to discuss the results of her abnormal uterine bleeding workup and options of treatment. The following workup was done.: H&H= 12.6/37.9 TSH low, free T4 within normal GC and chlamydia were negative. Endometrial biopsy pathology showed the following: -Scant fragments of benign endometrium with atrophic and cystically dilated glands, and decidual stromal change, consistent with progestin effect; no atypia or carcinoma. -Benign endocervical glandular epithelium and abundant mucus Co testing was done in 06/29 was negative. Mammogram in 10/01 [facility] was negative. Pelvic ultrasound showed the following: IMPRESSION: 1. IUD in appropriate position in the endometrial cavity. The IUD obscures the endometrial stripe. 2. 2.8 x 1.8 x 1.8 cm right ovarian cyst. [facility] Medical History Vitamin D deficiency Hypoglycemia Hypothyroidism Surgical History No history of previous surgery Family History Mother Family history of thyroid problem Father Type 1 diabetes Maternal Grandfather Type 2 diabetes mellitus Maternal Grandmother Family history of thyroid problem Social History Household Members: Spouse and Children Housing: House Alcohol intake: never Patient Tobacco Use Status: Never used Tobacco e-Cigarette/Vaping Use: Never Used Second Hand Smoke Exposure: No service: No Current occupational exposures/hazards: No Gender identity: Female Cognitive needs: No Hearing needs: No Vision needs: No Female Reproductive History Menstrual Age of Menarche: 12 Review of Systems Const All systems reviewed & are unremarkable except as noted in HPI and below Reports as per HPI and Reports no additional complaints GI Reports no additional complaints Reports no additional complaints Assessment & Plan Assessment & Plan (1) Abnormal uterine bleeding (AUB): Comment: On Mirena IUD Code(s): N93.9 - Abnormal uterine and vaginal bleeding, unspecified Category: Medical Plan: Discussed with the patient the results of the workup, the patient was reassured. Instructions given the patient to call in case symptoms persist or recur. All questions answered, the patient verbalized understanding (2) Abnormal thyroid function test: Code(s): R94.6 - Abnormal results of thyroid function studies Category: Medical Plan: Discussed with the patient the results of the abnormal thyroid function test, recommended follow-up with PCP . Coding Level of Care Code Est Pt Level 3 (29925) Diagnoses Abnormal uterine bleeding (AUB) N93.9 Abnormal thyroid function test R94.6
[2024-07-15 16:00] VITALS: BMI 32.0
--- OUTSIDE RECORDS SUMMARY | 2024-07-15 16:27 | XMS_ITS ---
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 VITAL SIGNS Heart Rate 93 /min 06/02/2024 Blood pressure systolic 140 mm Hg 06/03/19 Blood pressure diastolic 88 mm Hg 025 Weight 178.5 lbs 06/02/2024 BMI 32.64 kg/m2 06/02/2024 Height 62 in 06/02/2024 Oximetry 99 % 06/02/2024 Encounters Encounter Location Date Provider Diagnosis [facility] [address] [place] [address] 06/02/2024 MARK BOSWELL Right ear pain H92.01 [...] Dictation was accomplished with the use of [employer] voice recognition software, prone to medical misidentifications [...] Dictation was accomplished with the use of [employer] voice recognition software, prone to medical misidentifications [...] Name:NURY CYR, 10:30:00 AM, [address], [place], [address], Progress Notes * Surekha SCOTT:1980 ([age] yo F)Acc No.[id number]:06/02/2024 Progress Notes Patient:??Negar SCOTT Provider:??MARK CHAPMAN PA-C :1980?Age:43 Y?Sex:Fe male Date:06/02/2024 Address:[address] [place], [place] [address] Subjective: * Chief Complaints: * ?1. Pt presents in offi ce today for urgent care visit with concerns of blocked ears without pain. * HPI: ?Constitutional:? Negar is a pleasant 43-year-old female with a past medical history of Clifton's, anxiety, seasonal allergies and headaches who presents to the office today for a blocked ear. She reports she flew to [facility] recently and on the plane ride [...] Dictation was accomplished with the use of [employer] voice recognition software, prone to medical misidentifications and grammatical errors. This is unintentional, and the practitioner does try to identify and correct these, but some could still be present. Please do not hesitate to contact practitioner for clarification. Plan: * Treatment: Care Plan: * Problems:?? * Images: Billing Information: * Visit Code:?? 81600 Office Visit, Est Pt., Level 3. Modifiers: [...] blocked ear. She reports she flew to [facility] recently and on the plane ride home last Saturday her ears popped. She reports associated R ear pressure and fullness with minimal nasal congestion. She's tried flonase, shauna, afrin, hyaline's clogging drops, and hydrogen peroxide drops without relief in symptoms. Has also tried mechanical decompression by blowing her nose and popping her ears. She presented to [facility] on Saturday who prescribed her oral prednisone [...]
--- OUTSIDE RECORDS SUMMARY | 2024-07-15 16:27 | XMS_ITS ---
Author Organization [facility] Address [address] [place] [address] Care Team Providers Care Service Desk Associate Name Role Phone NURY OBRIEN Unavailable [phone] REASON FOR VISIT 3 week f/u Encounters Encounter Location Date Provider Diagnosis [facility] [address] [place] [address] 06/02/2024 NURY OBRIEN PLAN OF TREATMENT Next Appt Details Provider Name:NURY OBRIEN, 10:30:00 AM, [address], [place], [address], Progress Notes * Negar SCOTTDOB:1980 ([age] yo F)Acc No.[id number]:06/02/2024 Progress Notes Patient:??Negar SCOTT Provider:??NURY OBRIEN PA-C :1980?Age:43 Y?Sex:Fe male Date:06/02/2024 Address[address] [facility] Subjective: * Chief Complaints: * ?1. 3 week f/u. * Medical History:?? Objective: Assessment: Plan: * Treatment: * Images: Billing Information: * Visit Code:?? * Procedure Codes:?? Care Plan Details* * Sign off status: Pending * Provider:??NURY OBRIEN PA-C Date:??06/02
--- OUTSIDE RECORDS SUMMARY | 2024-07-15 16:27 | XMS_ITS | Clinical Summary ---
Author Organization [facility] Address [address] [id number] Care Team Providers Care Courtesy Clerk Name Role Phone Neisha Ramirez APRN Primary Care Provider [phone] Allergies Active Allergy Reactions Criticality Noted Date [...] age to complete this topic Care Teams Courtesy Clerk Relationship Specialty Start Date End Date Neisha Ramirez, SECURITY SME [address] [facility] [address] [facility] [place] [address] PCP - General Family Medicine 09/16/17
--- OUTSIDE RECORDS SUMMARY | 2024-07-15 16:27 | XMS_ITS ---
Author Organization [facility] Address [address] [place] [address] Care Team Providers Care General Ledger Bookkeeper Name Role Phone MICAH, NURY Unavailable [phone] SHOAIB ACKERMAN Unavailable [phone] REASON FOR VISIT urgent Encounters Encounter Location Date Provider Diagnosis [facility] [address] [place] [address] 06/01/2024 SHOAIB ACKERMAN PLAN OF TREATMENT Next Appt Details Provider Name:NURY OBRIEN, 10:30:00 AM, [address], [place], [address], Progress Notes * Negar SCOTTDOB:1980 ([age] yo F)Acc No.[id number]:06/01/2024 Patient:??Negar SCOTT :1980?Age:43 Y?Sex:Fe male Address:[address] [place] [address] * true * Date:??
--- OUTSIDE RECORDS SUMMARY | 2024-07-15 16:27 | XMS_ITS | Patient Health Record ---
Author Organization [facility] Address [address] [place] [address] Care Team Providers Care Quartz Mounter Name Role Phone NURY OBRIEN Unavailable [phone] SHOAIB ACKERMAN Unavailable [phone] MARK BOSWELL Unavailable [phone] ALLERGIES Allergen (clinical drug ingredient) Drug/Non Drug [...] unspecified (E55.9) Active confirmed Vitamin D deficiency (96381798) Problem Encounter for screening for lipoid disorders (Z13.220) Active confirmed Lipid screening (990282301) Problem Essential hypertension (I10) Active confirmed 97442633 Problem Anxiety (F41.9) Active confirmed Anxiet y (94987123) Problem Adult general medical exam (Z00.00) Active confirmed Adult health examination (124050653) Problem Seasonal allergies (J30.2) Active confirmed Seasonal allergy (383011514) Problem Weight gain (R63.5) Active confirmed Weight gain (490652163) Problem Anemia due to vitamin B12 deficiency, unspecified B12 deficiency type (D51.9) Active confirmed Vitamin B>12< deficiency anaemia (92286593) 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 10061572 Problem Encounter for screening for endocrine disorder (Z13.29) Active confirmed Endocrine/metab olic screening (821808423) VITAL SIGNS Heart Rate 93 /min 06/02/2024 Oximetry 99 % 06/02/2024 Blood pressure diastolic 88 mm Hg 06/02/2024 Height 62 in 06/02/2024 Blood pressure systolic 140 mm Hg 06/02/2024 Weight 178.5 lbs 06/02/2024 BMI 32.64 kg/m2 06/02/2024 Encounters Encounter Location Date Provider Diagnosis [facility] [address] [place] [address] 05/21/2024 NURY MICAH [facility] [address] [place] [address] 06/02/2024 NURY MICAH [facility] [address] [place] [address] 03/05/2024 NURY MICAH Weight gain R63.5 ; Clifton's disease E06.3 and Essential hypertension I10 [facility] [address] [place] [address] 04/23/2024 NURY MICAH Weight gain R63.5 ; Well adult exam Z00.00 ; Clifton's disease E06.3 ; Essential hypertension I10 and Anxiety F41.9 [facility] [address] [place] [address] 06/02/2024 MARK BOSWELL Right ear pain H92.0 1 and Non-recurrent acute serous otitis media of right ear H65.01 [facility] [address] [place] [address] 03/20/[address] [facility] [address] [place] [address] 04/14/[address] [facility] [address] [place] [address] 04/23/2024 NURY MICAH [facility] [address] [place] [address] 06/01/2024 SHOAIB TYRON [address] [place] [address] 03/14/2024 NURY MICAH [address] [place] [address] 04/08/2024 SHOAIB TYRON [address] [place] [address] 05/04/2024 SHOAIB TYRON [address] [place] [address] 05/05/2024 SHOAIB TYRON [address] [place] [address] 05/17/2024 SHOAIB TYRON [address] [place] [address] 05/17/2024 SHOAIB TYRON [address] [place] [address] 05/28/2024 SHOAIB TYRON ASSESSMENTS Encounter Date Diagnosis [...] Dictation was accomplished with the use of [email or web address] voice recognition software, which is prone to [...] Dictation was accomplished with the use of [email or web address] voice recognition software, which is prone to [...] log exercise and discussed fitness Apps like InVisM which can help keep log off calories [...] Dictation was accomplished with the use of [email or web address] voice recognition software, which is prone to [...] log exercise and discussed fitness Apps like [employer] which can help keep log off calories [...] Dictation was accomplished with the use of [email or web address] voice recognition software, which is prone to [...] Dictation was accomplished with the use of [email or web address] voice recognition software, prone to medical misidentifications and grammatical errors. This is unintentional, and the practitioner does try to identify and correct these, but some could still be present. Please do not hesitate to contact practitioner for clarification. 06/02/2024 Non-recurrent acute serous otitis media of right ear (ICD-10 - H65.01) Negar is a pleasant 43-year-old female with PMHx of Cilfton's, anxiety, seasonal allergies and headaches who present [...] Dictation was accomplished with the use of [email or web address] voice recognition software, prone to medical misidentifications [...] log exercise and discussed fitness Apps like InVis[employer] which can help keep log off calories [...] Dictation was accomplished with the use of [email or web address] voice recognition software, which is prone to [...] Dictation was accomplished with the use of [email or web address] voice recognition software, which is prone to [...] log exercise and discussed fitness Apps like InVis[employer] which can help keep log off calories [...] Dictation was accomplished with the use of [email or web address] voice recognition software, which is prone to [...] log exercise and discussed fitness Apps like [employer] which can help keep log off calories [...] Dictation was accomplished with the use of [email or web address] voice recognition software, which is prone to [...] Name:NURY MICAH, 10:30:00 AM, [address], [place], [address], Insurance Providers Payer Name Payer Address Payer Phone Subscriber Number Group Number Insured Name Patient Relationship to Insured Coverage Start Date Coverage End Date [facility] [address] [place] [address] [id number] Darien Elias Negar Self - patient is the insured MEDICAL (GENERAL) HISTORY Medical History History ICD Code 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
== END 2024-07-15 16:38 | disposition home or self-care (01) ==
LOC: HO.HWS 15:53
PROVIDERS: PCP Internal Medicine; Visit Provider Obstetrics & Gynecology
DX: N93.9 Abnormal uterine and vaginal bleeding, unspecified (principal); R94.6 Abnormal results of thyroid function studies
CPT/HCPCS: 99213

== ENCOUNTER 2024-08-04 15:04 | Outpatient (REF) | payer BC, SELFPAY ==
--- OUTSIDE RECORDS SUMMARY | 2024-08-04 15:07 | XMS_ITS | Clinical Summary ---
[facility] Organization [facility] Address [address] [id number] Care Team Providers Care Trimmer Operator Name Role Phone Neisha Ramirez APRN Primary Care Provider +1- [phone] Allergies Active Allergy Reactions Criticality Noted Date [...] age to complete this topic Care Teams Trimmer Operator Relationship Specialty Start Date End Date Neisha Rmairez, STAFF COUNSEL [address] [facility] [address] [facility] [place] [address] PCP - General Family Medicine 09/16/17
[2024-08-04 15:48] LABS: Estimated Average Glucose 100 mg/dL; Hemoglobin A1C 105.5773 umol/L; Hemoglobin A1c % 5.1 % (<6.0)
[2024-08-05 04:03] LABS: Triiodothyronine T3 Free 3.4 pg/mL (2.3-4.2)
== END 2024-08-04 15:05 | disposition home or self-care (01) ==
LOC: HO.LAB 15:04
PROVIDERS: PCP Internal Medicine; Visit Provider Nurse Practitioner Family
DX: E06.3 Autoimmune thyroiditis (principal); E66.3 Overweight; Z13.1 Encounter for screening for diabetes mellitus
CPT/HCPCS: 36415; 83036; 84481

== ENCOUNTER 2025-03-03 09:45 | Outpatient (REF) | payer BC, SELFPAY ==
--- OUTSIDE RECORDS SUMMARY | 2024-05-21 09:45 | XMS_ITS ---
Author Organization [facility] [address] Address [address] [place] [address] Care Team Providers Care Airbrush Painter Name Role Phone MICAHMICHAEL MaloneIA Unavailable [phone] REASON FOR VISIT 3 week f/u Encounters Encounter Location Date Provider Diagnosis [facility] [address] [place] [address] 05/21/2024 NURY OBRIEN Plan Of Treatment Next Appt Details Provider Name:NURY OBRIEN, 12:00:00 PM, [address] [facility], [place], [address], Progress Notes * Negar SCOTTDOB:1980 ([age] yo F)Acc No.[id number]:05/21/2024 Progress Notes Patient: Kira qamar Negar Provider: Lita OBRIEN PA-C :1980 A ge:43 Y S ex:Female Date:05/21/2024 Address:[place], [place] Subjective: * Chief Complaints: * 3 week f/u Care Plan Details* * Electronic signature of MICHAEL OBRIEN PA-C on 03/03/2025 at 09:51 AM EST Sign off status: Pending * Provider: Lita OBRIEN PA-C Date: 0 05/21/2024 Generated for Terei ng/Faxing/eTransmitting on: 1 05/04/2024 09:51 AM EST
--- OUTSIDE RECORDS SUMMARY | 2025-03-03 09:52 | XMS_ITS | Clinical Summary ---
Author Organization [facility] Prior to 08/08/[address] [place] [address] Care Team Providers Care International Trade Analyst Name Role Phone Neisha Ramirez APRN Primary Care Provider +1- [phone] Allergies Active Allergy Reactions Criticality Noted Date [...] 53 09/17/2017 10:35 AM EDT Temperature 36.7 C (98.1 F) 09/17/2017 10:35 AM EDT Respiratory Rate - - Oxygen Saturation 98% [...] (P ap Smear) 12/05/2000 Influenza Vaccine (#1) 2024 Colon Cancer Screening (Colonoscopy) 12/05/2024 Pneumococcal Vaccine Aged Out No long er eligible based on patient's age to complete this topic RSV Ped < 20 months Aged Out No longe r eligible based on patient's age to complete this topic Care Teams International Trade Analyst Relationship Specialty Start Date End Date Neisha Ramirez, DUMP WORKER [address] [facility] [address] [place] [address] PCP - General Family Medicine 09/16/17
--- OUTSIDE RECORDS SUMMARY | 2025-03-03 09:53 | XMS_ITS | Patient Health Record ---
[facility] [address] Address [address] [place] [address] Care Team Providers Care Assistant County Attorney Name Role Phone NURY OBRIEN Unavailable [phone] SHOAIB ACKERMAN Unavailable [phone] MARK BOSWELL Unavailable [phone] KIRBY HUA Unavailable [phone] Allergies Allergen (clinical drug ingredient) Drug/Non Drug Allergy documented on EMR Reaction Allergy Type Onset Date Status amoxicillin / clavulanate Augmentin stomach upset Drug Allergy Active amoxicillin Amoxicillin hives Drug Allergy Act rachele doxycycline Doxycycline vomiting Drug Allergy Act rachele Results Component Value Reference Range Notes EKG Reviewed date:09/30/2024 04:01:32 PM Interpretation: Performing Lab: Notes/Report: ECGDiastolicBP 0 ECGHr 75 ECGPRInterval 154 ECGPWaveAxis 46 ECGQRSDuration 86 ECGQrsWaveAxis 35 ECGQTcInterval 414 ECGQTInterval 388 ECGSystolicBP 0 ECGTWaveAxis -1 RR_DiastolicBP 0 RR_MaxRRInterval 0 RR_MeanHR 0 RR_MeanRRInterval 0 RR_MinRRInterval 0 RR_NumBeats 0 RR_NumNormalBeats 0 RR_SystolicBP 0 EKG Reviewed date:09/30/2024 04:01:32 PM Interpretation: Performing Lab: Notes/Report: ECGDiastolicBP 90 ECGHr 74 ECGPRInterval 154 ECGPWaveAxis 53 ECGQRSDuration 84 ECGQrsWaveAxis 43 ECGQTcInterval 404 ECGQTInterval 380 ECGSystolicBP 142 ECGTWaveAxis -1 RR_DiastolicBP 0 RR_MaxRRInterval 0 RR_MeanHR 0 RR_MeanRRInterval 0 RR_MinRRInterval 0 RR_NumBeats 0 RR_NumNormalBeats 0 RR_SystolicBP 0 Reason For Referral No Information Medications Medication SIG (Take, Route, Frequency, Duration) Notes Start Date End Date Status Losartan Potassium 25 MG Tablet 1 tablet Orally Once a day; Duration: 90 days 11/11/2024 Active Wegovy 0.5 MG/0.5ML Solution Auto-injector 0.5 mL Subcutaneous once a week; Duration: 30 days 02/16/2025 Active Citalopram Hydrobromide 20 MG Tablet TAKE ONE TABLET BY MOUTH EVERY DAY; Duration: 30 Active Levothyroxine Sodium 88 MCG Tablet 1 tablet in the morning on an empty stomach Orally Once a day; Duration: 30 days Active Naltrex 1.5 MG Capsule Two capsules Orally daily Active Meclizine HCl 12.5 MG Tablet 1 tablet as needed Orally every 12 hrs; Duration: 3 days 09/30/2024 Active SUMAtriptan Succinate 25 MG Tablet take 1 tablet as needed, can take second dose at least 2 hours after Orally daily; Duration: 30 days 09/30/2024 Active Liothyronine Sodium 10 MCG/ML Solution 1 mL as needed Orally Once a day Active Social History Tobacco Use: Social History Observation Description Date Details (start date - stop date) Never Smoker NA - NA Social History Drugs/Alcohol: Social Info Question Answer Notes Alcohol Screen (Audit-C) Did you have a drink containing alcohol in the past year? 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: None Patient is a teacher ETOH: None Patient is a teacher ETOH: None Patient is a teacher ETOH: None Problems Problem Type SNOMED Code ICD Code Onset Dates Problem Status W/U Status Risk Notes Problem Vitamin D deficiency (97555492) Vitamin D deficiency, unspecified (E55.9) Active confirmed Problem Abnormal blood pressure (98586791) Encounter for examination of blood pressure with abnormal findings (Z01.31) Active confirmed Problem Lipid screening (299347720) Encounter for screening for lipoid disorders (Z13.220) Active confirmed Problem Essential hypertension (41933003) Essential hypertension (I10) Active confirmed Problem Anxiety (15331115) Anxiety (F41.9) Active confirmed Problem Adult health examination (858815897) Adult general medical exam (Z00.00) Active confirmed Problem Seasonal allergy (538847515) Seasonal allergies (J30.2) Active confirmed Problem Obesity (702289743) Obesity (BMI 30-39.9) (E66.9) Active confirmed Problem Weight gain (812521571) Weight gain (R63.5) Active confirmed Problem BMI 30+ - obesity (595456665) BMI 32.0-32.9,adult (Z68.32) Active confirmed Problem Vitamin B>12< deficiency anaemia (01732341) Anemia due to vitamin B12 deficiency, unspecified B12 deficiency type (D51.9) Active confirmed Problem Body mass index 30.00 to 34.99 (831609389872070 ) BMI 31.0-31.9,adult (Z68.31) Active confirmed Problem 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 Problem Endocrine/[place] lic screening (246529668) Encounter for screening for endocrine disorder (Z13.29) Active confirmed Problem Generalized anxiety disorder (49276476) Anxiety, generalized (F41.1) Active confirmed Problem Migraine (09193517) Migraine syndrome (G43.909) Active confirmed Problem Obese class I (finding) (249459717696291 ) Obesity, class 1 (E66.811) Active confirmed Vital Signs Heart Rate 72 /min 02/11/2025 Oximetry 94 % 02/11/2025 Blood pressure diastolic 92 mm Hg 02/11/2025 Height 62 in 02/11/2025 Blood pressure systolic 140 mm Hg 02/11/2025 Weight 170.2 lbs 02/11/2025 BMI 31.13 kg/m2 02/11/2025 Encounters Encounter Location Date Provider Diagnosis [facility] [address] [place] [address] 03/05/2024 NURY MICAH Weight gain R63.5 ; Clifton's disease E06.3 and Essential hypertension I10 [facility] [address] [place] [address] 04/23/2024 NURY MICAH Weight gain R63.5 ; Well adult exam Z00.00 ; Clifton's disease E06.3 ; Essential hypertension I10 and Anxiety F41.[address] [address] 06/02/2024 MARK MENDOZANER Right ear pain H92.0 1 and Non-recurrent acute serous otitis media of right ear H65.[address] 09/30/2024 KIRBY HUA Encounter for screen ing for cardiovascular disorders Z13.6 ; Recurrent headache R51.9 ; Dizziness R42 ; Essential hypertension I10 and Encounter for examination of blood pressure with abnormal findings Z01.[address] [address] 10/06/2024 KIRBY HUA Essential hypertensi on I10 ; Anxiety, generalized F41.1 ; Migraine syndrome G43.909 ; History of dizziness Z87.898 ; Obesity (BMI 30-39.9) E66.9 and Encounter for examination of blood pressure with abnormal findings Z01.[address] 11/11/2024 NURY MICAH BMI 32.0-32.9,adult Z68.32 ; Obesity, class 1 E66.811 ; Dietary counseling Z71.3 ; Essential hypertension I10 ; Anxiety F41.9 and Encounter for examination of blood pressure with abnormal findings Z01.[address] 12/08/2024 NURY MICAH BMI 32.0-32.9,adult Z68.32 ; Obesity, class 1 E66.811 ; Dietary counseling Z71.3 ; Essential hypertension I10 ; Anxiety F41.9 and Encounter for examination of blood pressure with abnormal findings Z01.[address] [address] 01/09/2025 NURY MICAH BMI 31.0-31.9,adult Z68.31 ; Obesity, class 1 E66.811 ; Dietary counseling Z71.3 ; Essential hypertension I10 ; Anxiety F41.9 and Encounter for examination of blood pressure with abnormal findings Z01.[address] [facility] [address] [place] [address] 02/11/2025 NURY MICAH BMI 31.0-31.9,adult Z68.31 ; Obesity, class 1 E66.811 ; Dietary counseling Z71.3 ; Essential hypertension I10 ; Anxiety F41.9 and Encounter for examination of blood pressure with abnormal findings Z01.[address] [facility] [address] [place] [address] 03/20/2024 SHOAIB TYRON [facility] [address] [place] [address] 04/14/2024 SHOAIB TYRON [facility] [address] [place] [address] 04/23/2024 NURY MICAH [facility] [address] [place] [address] 06/01/2024 SHOAIB TYRON [facility] [address] [place], [place] 09/30/2024 NURY MICAH [facility] [address] [place] [address] 09/30/2024 NURY MICAH Encounter for screen ing for cardiovascular disorders Z13.6 [facility] [address] [place], [place] 02/11/2025 UNRY MICAH Obesity, class 1 E66 .811 [facility] [address] [place], [place] 03/14/2024 NURY MICAH [facility] [address] [place] [address] 04/08/2024 SHOAIB TYRON [facility] [address] [place], [place] 05/04/2024 SHOAIB TYRON [facility] [address] [place] [address] 05/05/2024 SHOAIB TYRON [facility] [address] [place] [address] 05/17/2024 SHOAIB TYRON [facility] [address] [place] [address] 05/17/2024 SHOAIB TYRON [facility] [address] [place] [address] 05/28/2024 SHOAIB TYRON [facility] [address] [place] [address] 09/30/2024 NURY MICAH [facility] [address] [place] [address] 09/30/2024 NURY MICAH [facility] [address] [place] [address] 12/21/2024 NURY MICAH [facility] [address] [place] [address] 12/22/2024 NURY MICAH [facility] [address] [address] 12/28/2024 NURY MICAH [facility] [address] [address] 12/28/2024 NURY MICAH [facility] [address] [address] 12/28/2024 NURY MICAH [facility] [address] [address] 01/13/2025 NURY MICAH [facility] [address] [address] 02/15/2025 NURY MICAH Assessments Encounter Date Diagnosis (ICD Code) Assessment Notes Treatment Notes Treatment Clinical Notes [...] Dictation was accomplished with the use of [employer] voice recognition software, which is prone to [...] Dictation was accomplished with the use of [employer] recognition software, which is prone to medical [...] log exercise and discussed fitness Apps like valuescope which can help keep log off calories [...] Dictation was accomplished with the use of [employer] voice recognition software, which is prone to [...] log exercise and discussed fitness Apps like [employer] which can help keep log off calories [...] Dictation was accomplished with the use of [employer] voice recognition software, which is prone to [...] Dictation was accomplished with the use of [employer] voice recognition software, prone to medical misidentifications [...] Dictation was accomplished with the use of [employer] voice recognition software, prone to medical misidentifications and grammatical errors. This is unintentional, and the practitioner does try to identify and correct these, but some could still be present. Please do not hesitate to contact practitioner for clarification. 09/30/2024 Encounter for screening for cardiovascular disorders (ICD-10 - Z13.6) Negar is a pleasant 43-year-old female present today for urgent visit. #Headache: Has had history of migraine as well as tension headaches. Denies thunderclap headache. Reports dull ache behind her eyes. Denies recent URI or sinus pressure. Denies nasal congestion or ear congestion. Has trialed Motrin with no relief. Trialed antihistamine Shauna she thought there was possibly fluid behind your ears. No relief. On exam bilateral ears unremarkable. No nystagmus or neurological deficits. EKG obtained today in office and within normal limits. Given failure of Motrin, we will trial sumatriptan 25 mg for migraine improvement. Will send to the pharmacy. Will consider imaging if neurologic deficits developed. #Dizziness: 1 episode of dizziness associated with nausea this morning. Spontaneously resolved. Denies any other symptoms. Possibly related to migraine, will prescribe meclizine to take as needed if dizziness returns. Plan to follow-up in 1 week for continued evaluation. Will consider vestibular rehab if it continues and becomes isolated. #Hypothyroidism: Managed by functional medicine. States she has had recent thyroid panel checked and was within normal limits. States she has been on levothyroxine 88 mcg for quite some time and is stable. Will consider lab work including thyroid function and orthostatics if symptoms persist at 1 week follow-up. #Hypertension: Patient has had history of hypertension without hypertensive therapy. Unfortunately increased stressors and personal life may be contributing to increase in blood pressure. Offered prescription for a blood pressure monitor however patient states she will buy one on [employer]. Recommend monitoring blood pressure twice daily at home and keeping a blood pressure log. Will evaluate blood pressure log in 1 week and consider hypertensive therapy. # Recommend seeking emergency care if headache worsens, develops nausea, syncope or develops neurological deficits. Patient aware. All questions answered to patients satisfaction. Patient verbalized understanding of diagnosis and treatments explained. To call sooner prior to next visit it any questions/concerns arise. Case discussed with collaborating physician Dr. Osborn who reviewed the assessment and plan. Chart, medications, labs, vital signs reviewed. Dictation was accomplished with the use of [employer] voice recognition software, prone to medical misidentifications and grammatical errors. This is unintentional and the practitioner does try to identify and correct these, but some could still be present. Please do not hesitate to contact practitioner for clarification. 09/30/2024 Recurrent headache (ICD-10 - R51.9) Negar is a pleasant 43-year-old female present today for urgent visit. #Headache: Has had history of migraine as well as tension headaches. Denies thunderclap headache. Reports dull ache behind her eyes. Denies recent URI or sinus pressure. Denies nasal congestion or ear congestion. Has trialed Motrin with no relief. Trialed antihistamine Shauna she thought there was possibly fluid behind your ears. No relief. On exam bilateral ears unremarkable. No nystagmus or neurological deficits. EKG obtained today in office and within normal limits. Given failure of Motrin, we will trial sumatriptan 25 mg for migraine improvement. Will send to the pharmacy. Will consider imaging if neurologic deficits developed. #Dizziness: 1 episode of dizziness associated with nausea this morning. Spontaneously resolved. Denies any other symptoms. Possibly related to migraine, will prescribe meclizine to take as needed if dizziness returns. Plan to follow-up in 1 week for continued evaluation. Will consider vestibular rehab if it continues and becomes isolated. #Hypothyroidism: Managed by functional medicine. States she has had recent thyroid panel checked and was within normal limits. States she has been on levothyroxine 88 mcg for quite some time and is stable. Will consider lab work including thyroid function and orthostatics if symptoms persist at 1 week follow-up. #Hypertension: Patient has had history of hypertension without hypertensive therapy. Unfortunately increased stressors and personal life may be contributing to increase in blood pressure. Offered prescription for a blood pressure monitor however patient states she will buy one on [employer]. Recommend monitoring blood pressure twice daily at home and keeping a blood pressure log. Will evaluate blood pressure log in 1 week and consider hypertensive therapy. # Recommend seeking emergency care if headache worsens, develops nausea, syncope or develops neurological deficits. Patient aware. All questions answered to patients satisfaction. Patient verbalized understanding of diagnosis and treatments explained. To call sooner prior to next visit it any questions/concerns arise. Case discussed with collaborating physician Dr. Osborn who reviewed the assessment and plan. Chart, medications, labs, vital signs reviewed. Dictation was accomplished with the use of [employer] voice recognition software, prone to medical misidentifications and grammatical errors. This is unintentional and the practitioner does try to identify and correct these, but some could still be present. Please do not hesitate to contact practitioner for clarification. 09/30/2024 Encounter for screening for cardiovascular disorders (ICD-10 - Z13.6) 10/06/2024 Essential hypertension (ICD-10 - I10) Negar is a pleasant 43-year-old female present today for 1 week follow-up. #Migraine: Resolved. Trialed on sumatriptan 25 mg to use as needed. Patient stated she took 1 dose of this medication with instant resolution of migraine symptoms. Has not had a repeat migraine since. Will continue to take sumatriptan as needed. #Dizziness: Resolved. 1 episode of dizziness with spontaneous resolution prior to urgent visit last week. EKG performed in office at last visit which was unremarkable. Was prescribed meclizine to take as needed while patient was being worked up for hypertension. Dizziness has not returned. #Anxiety: Patient has been stable and managed on citalopram 10 mg for anxiety for over 20 years. Has had increased stressors in her life recently having to do with her children. Believe this is a contributory factor to her elevated blood pressure. Discussed whether to treat anxiety versus hypertension at this time. Plan to increase citalopram to 20 mg. Advised patient to take 1-1/2 tabs of citalopram 10 mg to begin therapy of citalopram 15 mg x 1 week to slowly taper up. After 1 week, if patient is tolerating well, recommend begin taking citalopram 20 mg daily. Patient agreeable with plan. Discussed increased anxiety when starting or increasing this medication. If SI/HI develop, discontinue medication immediately and seek emergency care. Plan to follow-up in 8 weeks to assess medication efficacy with Nury Obrien PA-C. #Hypertension: Blood pressure elevated today in office. Has had history of elevated blood pressure in the past. Not currently on hypertensive therapy. Believe that anxiety has worsened patient's blood pressure as well as recent weight gain with an IUD. Plan to first treat anxiety and then after 8 weeks, would consider low-dose hypertensive therapy. Would also recommend lifestyle modifications of diet and exercise to improve weight, which will then secondary improved blood pressure. Plan to continue to monitor at this time. #Elevated BMI: Wt: 178.8 lbs, BMI: 32.7 has had weight gain since IUD placement. Patient struggled with heavy bleeding prior to IUD, which has since improved symptoms. Would recommend continue with an IUD as well as working on lifestyle modifications of diet and exercise to improve weight loss. Discussed weight management consultation as well as GLP-1 medication. Briefly discussed Seca scale. Recommend calling insurance whether or not they would approve Zepbound versus Wegovy. Recommend scheduling a weight management consultation. Discussed how weight loss can improve blood pressure and avoid hypertensive therapy. # Follow-up in 8 weeks for citalopram review All questions answered to patients satisfaction. Patient verbalized understanding of diagnosis and treatments explained. To call sooner prior to next visit it any questions/concerns arise. Case discussed with collaborating physician Dr. Osborn who reviewed the assessment and plan. Chart, medications, labs, vital signs reviewed. Dictation was accomplished with the use of [employer] voice recognition software, prone to medical misidentifications and grammatical errors. This is unintentional and the practitioner does try to identify and correct these, but some could still be present. Please do not hesitate to contact practitioner for clarification. 10/06/2024 Anxiety, generalized (ICD-10 - F41.1) Negar is a pleasant 43-year-old female present today for 1 week follow-up. #Migraine: Resolved. Trialed on sumatriptan 25 mg to use as needed. Patient stated she took 1 dose of this medication with instant resolution of migraine symptoms. Has not had a repeat migraine since. Will continue to take sumatriptan as needed. #Dizziness: Resolved. 1 episode of dizziness with spontaneous resolution prior to urgent visit last week. EKG performed in office at last visit which was unremarkable. Was prescribed meclizine to take as needed while patient was being worked up for hypertension. Dizziness has not returned. #Anxiety: Patient has been stable and managed on citalopram 10 mg for anxiety for over 20 years. Has had increased stressors in her life recently having to do with her children. Believe this is a contributory factor to her elevated blood pressure. Discussed whether to treat anxiety versus hypertension at this time. Plan to increase citalopram to 20 mg. Advised patient to take 1-1/2 tabs of citalopram 10 mg to begin therapy of citalopram 15 mg x 1 week to slowly taper up. After 1 week, if patient is tolerating well, recommend begin taking citalopram 20 mg daily. Patient agreeable with plan. Discussed increased anxiety when starting or increasing this medication. If SI/HI develop, discontinue medication immediately and seek emergency care. Plan to follow-up in 8 weeks to assess medication efficacy with Nury Obrien PA-C. #Hypertension: Blood pressure elevated today in office. Has had history of elevated blood pressure in the past. Not currently on hypertensive therapy. Believe that anxiety has worsened patient's blood pressure as well as recent weight gain with an IUD. Plan to first treat anxiety and then after 8 weeks, would consider low-dose hypertensive therapy. Would also recommend lifestyle modifications of diet and exercise to improve weight, which will then secondary improved blood pressure. Plan to continue to monitor at this time. #Elevated BMI: Wt: 178.8 lbs, BMI: 32.7 has had weight gain since IUD placement. Patient struggled with heavy bleeding prior to IUD, which has since improved symptoms. Would recommend continue with an IUD as well as working on lifestyle modifications of diet and exercise to improve weight loss. Discussed weight management consultation as well as GLP-1 medication. Briefly discussed Seca scale. Recommend calling insurance whether or not they would approve Zepbound versus Wegovy. Recommend scheduling a weight management consultation. Discussed how weight loss can improve blood pressure and avoid hypertensive therapy. # Follow-up in 8 weeks for citalopram review All questions answered to patients satisfaction. Patient verbalized understanding of diagnosis and treatments explained. To call sooner prior to next visit it any questions/concerns arise. Case discussed with collaborating physician Dr. Osborn who reviewed the assessment and plan. Chart, medications, labs, vital signs reviewed. Dictation was accomplished with the use of [employer] voice recognition software, prone to medical misidentifications and grammatical errors. This is unintentional and the practitioner does try to identify and correct these, but some could still be present. Please do not hesitate to contact practitioner for clarification. 11/11/2024 BMI 32.0-32.9,adult (ICD-10 - Z68.32) Negar is a 43-year-old female who presents to the office today for weight management #Hypertension: Considering patient's blood pressure readings have been consecutively high the past few visits we will be starting patient on losartan 25 mg tablets daily. 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 MICC shot given today as well as starting Berberine daily, one tab in the morning. Hesitant on GLP-1's, however reassured patient that this is an option in the future as she does not have a family history or personal history of medullary endocrine neoplasia or thyroid cancer. We spent a lot of time discussing the relationship between food, exercise, sleep, mental health and obesity. Patient was counseled on the importance EATING local, organic food when possible. Patient was educated on clean 15 and dirty dozen. I provided information about reading books called The Food Rules by Aaron Cazares and Eat Fat Get Lean by Dr Reinaldo Richards. Self education is important in the journey for weight management. Patient was offered diagnostic testing. We want to measure visceral adiposity, advanced body composition, adverse lipids, fatty acid balance, risk for heart disease and atherosclerosis, markers of inflammation and genetic susceptibility. Patient was counseled on weight management and was advised to lose weight using A. Meal Replacement Products Patient was educated on the replacement products called optifast. This is a good way of taking fixed amount of calories. It has been shown in studies to be ineffective weight management tool. This however has to be coupled with lifestyle intervention as well as laboratory data and EKG monitoring. It is impossible to know how a person will tolerate complete meal replacement. The side effects of meal replacement and weight loss could include syncopal attacks, dizziness, gallstones, potential cholecystectomy, possible heart attack and even . The benefits of meal replacement would be potential weight loss but no guarantees can be made. Meal replacement products are not covered by insurance. Once the patient has bought these products we cannot return them B. Lifestyle management which includes several strategies as below 1. Eat a low carbohydrate good fat good protein diet. Eliminate refined carbohydrates from the diet. Continue blood sugar and sugared beverages. Eat local organic when possible. Cook your own meals. Read food labels. None about healthy snacks. Portion control and food with low glycemic index 2. Exercise regularly. Try to get at least 6000 steps a day. Use a predominant to track activity level. Consider using apps like [employer], [employer]fitnesspal, lose it, stick as needed for self-monitoring and weight management. Consider group exercises. Consider hiring a administrative personal assistant. Regular exercise is rojas to sustainable health and prevents as a buffer against weight regain 3. Sleep is most important for healing. Tried to sleep at least 8 hours a night. A good quality sleep needs a sleep ritual with ideal room temperature of around 68. It might help to take a shower and have no electronics in the room and sleep in a very dark room without artificial light. Start her sleep routine and get up early in the morning and go to bed on time 4. Make a social connection. Surround yourself with positive people with positive energy. Connect with friends and family. 5. Get into the habit of meditating and mindfulness while doing everything. 6. Go outside and connect with nature. C. Prescription medications Patient was educated on the use of prescription medications for medical weight loss. This is a growing list and includes phentermine, Topamax,Qsymia, contrave, belviq and saxenda. All prescription medications could have side effects including but not limited to kidney stones seizure disorder cardiac arrhythmias heart attack pancreatitis etc. etc.. Patient was encouraged to read the prescription insert and have coaching with their pharmacist and make an informed decision about taking medication and know that these medications are being prescribed with good intentions and we do not know how a patient would react to her medication. Sudden medications are FDA approved for weight loss and there is also off label use depending on patient's inability to afford medications in an attempt to lose weight D. Behavioral counseling was done to establish a relationship between food and an mood. Patient was provided information about local counseling including the office of Dr. Terrazas in [place] and Dr Sena at [place]. We would like to cover regular topics and build on low glycemic eating exercise mindful eating, using yoga and meditation along with deep breathing and connecting with friends and family. E. Patient's current medications were reviewed and opinion was given on medication that can cause weight gain and can be substituted F. Patient was assessed for risk with obesity including and not limiting to atherosclerosis heart disease stroke kidney disease, restrictive lung disease, irritable bowel syndrome and overall mortality. Risk of developing prediabetes diabetes and metabolic syndrome was discussed G. Therapeutic plan: We have decided to make therapeutic plan which would include choosing wisely on calories restricting portion getting active, tracking weight, getting good quality sleep and working on time management H. Patient will follow up in 4 weeks for weight management Total time spent today was 60 minutes of which greater than 50% was spent on coordinating and counseling All questions have been answered to patient's satisfaction. Patient verbalized understanding of diagnosis and treatments explained. Advised to call sooner prior to next visit it any questions/concerns arise. Case discussed with Mayra SINGH who reviewed the assessment and plan. Chart, medications, labs, vital signs reviewed. Dictation was accomplished with the use of [employer] voice recognition software, which is prone to medical misidentifications and grammatical errors. This are unintentional and the practitioner does try to identify and correct these, but some could still be present. Please do not hesitate to contact practitioner for clarification. 11/11/2024 Obesity, class 1 (ICD-10 - E66.811) Negar is a 43-year-old female who presents to the office today for weight management #Hypertension: Considering patient's blood pressure readings have been consecutively high the past few visits we will be starting patient on losartan 25 mg tablets daily. 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 MICC shot given today as well as starting Berberine daily, one tab in the morning. Hesitant on GLP-1's, however reassured patient that this is an option in the future as she does not have a family history or personal history of medullary endocrine neoplasia or thyroid cancer. We spent a lot of time discussing the relationship between food, exercise, sleep, mental health and obesity. Patient was counseled on the importance EATING local, organic food when possible. Patient was educated on clean 15 and dirty dozen. I provided information about reading books called The Food Rules by Aaron Cazares and Eat Fat Get Lean by Dr Reinaldo Richards. Self education is important in the journey for weight management. Patient was offered diagnostic testing. We want to measure visceral adiposity, advanced body composition, adverse lipids, fatty acid balance, risk for heart disease and atherosclerosis, markers of inflammation and genetic susceptibility. Patient was counseled on weight management and was advised to lose weight using A. Meal Replacement Products Patient was educated on the replacement products called optifast. This is a good way of taking fixed amount of calories. It has been shown in studies to be ineffective weight management tool. This however has to be coupled with lifestyle intervention as well as laboratory data and EKG monitoring. It is impossible to know how a person will tolerate complete meal replacement. The side effects of meal replacement and weight loss could include syncopal attacks, dizziness, gallstones, potential cholecystectomy, possible heart attack and even . The benefits of meal replacement would be potential weight loss but no guarantees can be made. Meal replacement products are not covered by insurance. Once the patient has bought these products we cannot return them B. Lifestyle management which includes several strategies as below 1. Eat a low carbohydrate good fat good protein diet. Eliminate refined carbohydrates from the diet. Continue blood sugar and sugared beverages. Eat local organic when possible. Cook your own meals. Read food labels. None about healthy snacks. Portion control and food with low glycemic index 2. Exercise regularly. Try to get at least 6000 steps a day. Use a predominant to track activity level. Consider using apps like [employer], [employer], lose it, stick as needed for self-monitoring and weight management. Consider group exercises. Consider hiring a administrative personal assistant. Regular exercise is rojas to sustainable health and prevents as a buffer against weight regain 3. Sleep is most important for healing. Tried to sleep at least 8 hours a night. A good quality sleep needs a sleep ritual with ideal room temperature of around 68. It might help to take a shower and have no electronics in the room and sleep in a very dark room without artificial light. Start her sleep routine and get up early in the morning and go to bed on time 4. Make a social connection. Surround yourself with positive people with positive energy. Connect with friends and family. 5. Get into the habit of meditating and mindfulness while doing everything. 6. Go outside and connect with nature. C. Prescription medications Patient was educated on the use of prescription medications for medical weight loss. This is a growing list and includes phentermine, Topamax,Qsymia, contrave, belviq and saxenda. All prescription medications could have side effects including but not limited to kidney stones seizure disorder cardiac arrhythmias heart attack pancreatitis etc. etc.. Patient was encouraged to read the prescription insert and have coaching with their pharmacist and make an informed decision about taking medication and know that these medications are being prescribed with good intentions and we do not know how a patient would react to her medication. Sudden medications are FDA approved for weight loss and there is also off label use depending on patient's inability to afford medications in an attempt to lose weight D. Behavioral counseling was done to establish a relationship between food and an mood. Patient was provided information about local counseling including the office of Dr. Terrazas in [place] and Dr Sena at [facility]. We would like to cover regular topics and build on low glycemic eating exercise mindful eating, using yoga and meditation along with deep breathing and connecting with friends and family. E. Patient's current medications were reviewed and opinion was given on medication that can cause weight gain and can be substituted F. Patient was assessed for risk with obesity including and not limiting to atherosclerosis heart disease stroke kidney disease, restrictive lung disease, irritable bowel syndrome and overall mortality. Risk of developing prediabetes diabetes and metabolic syndrome was discussed G. Therapeutic plan: We have decided to make therapeutic plan which would include choosing wisely on calories restricting portion getting active, tracking weight, getting good quality sleep and working on time management H. Patient will follow up in 4 weeks for weight management Total time spent today was 60 minutes of which greater than 50% was spent on coordinating and counseling All questions have been answered to patient's satisfaction. Patient verbalized understanding of diagnosis and treatments explained. Advised to call sooner prior to next visit it any questions/concerns arise. Case discussed with Mayra SINGH who reviewed the assessment and plan. Chart, medications, labs, vital signs reviewed. Dictation was accomplished with the use of [employer] voice recognition software, which is prone to medical misidentifications and grammatical errors. This are unintentional and the practitioner does try to identify and correct these, but some could still be present. Please do not hesitate to contact practitioner for clarification. 12/08/2024 BMI 32.0-32.9,adult (ICD-10 - Z68.32) Negar is a 43-year-old female who presents to the office today for weight management #Hypertension: Considering patient's blood pressure readings have been consecutively high the past few visits we will be starting patient on losartan 25 mg tablets daily. 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 MICC shot given today as well as starting Berberine daily, one tab in the morning. Hesitant on GLP-1's, however reassured patient that this is an option in the future as she does not have a family history or personal history of medullary endocrine neoplasia or thyroid cancer. 12/08/2024: BMI 32.32, weight 176.7 Wegovy 0.25 mg will be started today in office. Patient instructed on how to inject the GLP-1. Educated on alternating injection sites. We will try this for 1 month before submitting to insurance Patient is here for weight management followup. We focused on significance of healthy lifestyle changes. We talked about need to track steps, work on portion control, read food labels, get adequate sleep, give adequate rest of the body, meditate, frequent nutritious meals including vegetables and healthy choices of meat and elimination of refined carbohydrates. We also talked about mindfulness and mindful eating. Particular focus was on portion control Total time spent was 30 minutes with greater than 50% spent on counseling and coordinating care All questions have been answered to patient's satisfaction. Patient verbalized understanding of diagnosis and treatments explained. Advised to call sooner prior to next visit it any questions/concerns arise. Case discussed with Mayra SINGH who reviewed the assessment and plan. Chart, medications, labs, vital signs reviewed. Dictation was accomplished with the use of [employer] voice recognition software, which is prone to medical misidentifications and grammatical errors. This are unintentional and the practitioner does try to identify and correct these, but some could still be present. Please do not hesitate to contact practitioner for clarification. 12/08/2024 Obesity, class 1 (ICD-10 - E66.811) Negar is a 43-year-old female who presents to the office today for weight management #Hypertension: Considering patient's blood pressure readings have been consecutively high the past few visits we will be starting patient on losartan 25 mg tablets daily. 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 MICC shot given today as well as starting Berberine daily, one tab in the morning. Hesitant on GLP-1's, however reassured patient that this is an option in the future as she does not have a family history or personal history of medullary endocrine neoplasia or thyroid cancer. 12/08/2024: BMI 32.32, weight 176.7 Wegovy 0.25 mg will be started today in office. Patient instructed on how to inject the GLP-1. Educated on alternating injection sites. We will try this for 1 month before submitting to insurance Patient is here for weight management followup. We focused on significance of healthy lifestyle changes. We talked about need to track steps, work on portion control, read food labels, get adequate sleep, give adequate rest of the body, meditate, frequent nutritious meals including vegetables and healthy choices of meat and elimination of refined carbohydrates. We also talked about mindfulness and mindful eating. Particular focus was on portion control Total time spent was 30 minutes with greater than 50% spent on counseling and coordinating care All questions have been answered to patient's satisfaction. Patient verbalized understanding of diagnosis and treatments explained. Advised to call sooner prior to next visit it any questions/concerns arise. Case discussed with Mayra SINGH who reviewed the assessment and plan. Chart, medications, labs, vital signs reviewed. Dictation was accomplished with the use of [employer] voice recognition software, which is prone to medical misidentifications and grammatical errors. This are unintentional and the practitioner does try to identify and correct these, but some could still be present. Please do not hesitate to contact practitioner for clarification. 01/09/2025 BMI 31.0-31.9,adult (ICD-10 - Z68.31) Negar is a 43-year-old female who presents to the office today for weight management #Hypertension: Considering patient's blood pressure readings have been consecutively high the past few visits we will be starting patient on losartan 25 mg tablets daily. 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 MICC shot given today as well as starting Berberine daily, one tab in the morning. Hesitant on GLP-1's, however reassured patient that this is an option in the future as she does not have a family history or personal history of medullary endocrine neoplasia or thyroid cancer. 12/08/2024: BMI 32.32, weight 176.7 Wegovy 0.25 mg will be started today in office. Patient instructed on how to inject the GLP-1. Educated on alternating injection sites. We will try this for 1 month before submitting to insurance 01/09/2025: BMI 31.2, weight 170.7 Wegovy 0.25 mg sample box given to patient in office today. #Hypertension: Continue losartan 25 mg tablets #Anxiety: Continue citalopram 20 mg tablets daily Patient is here for weight management followup. We focused on significance of healthy lifestyle changes. We talked about need to track steps, work on portion control, read food labels, get adequate sleep, give adequate rest of the body, meditate, frequent nutritious meals including vegetables and healthy choices of meat and elimination of refined carbohydrates. We also talked about mindfulness and mindful eating. Particular focus was on portion control Total time spent was 30 minutes with greater than 50% spent on counseling and coordinating care All questions have been answered to patient's satisfaction. Patient verbalized understanding of diagnosis and treatments explained. Advised to call sooner prior to next visit it any questions/concerns arise. Case discussed with Mayra SINGH who reviewed the assessment and plan. Chart, medications, labs, vital signs reviewed. Dictation was accomplished with the use of [employer] voice recognition software, which is prone to medical misidentifications and grammatical errors. This are unintentional and the practitioner does try to identify and correct these, but some could still be present. Please do not hesitate to contact practitioner for clarification. 02/11/2025 BMI 31.0-31.9,adult (ICD-10 - Z68.31) Negar is a 43-year-old female who presents to the office today for weight management #Hypertension: Considering patient's blood pressure readings have been consecutively high the past few visits we will be starting patient on losartan 25 mg tablets daily. 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 MICC shot given today as well as starting Berberine daily, one tab in the morning. Hesitant on GLP-1's, however reassured patient that this is an option in the future as she does not have a family history or personal history of medullary endocrine neoplasia or thyroid cancer. 12/08/2024: BMI 32.32, weight 176.7 Wegovy 0.25 mg will be started today in office. Patient instructed on how to inject the GLP-1. Educated on alternating injection sites. We will try this for 1 month before submitting to insurance 01/09/2025: BMI 31.2, weight 170.7 Wegovy 0.25 mg sample box given to patient in office today. #Hypertension: Continue losartan 25 mg tablets #Anxiety: Continue citalopram 20 mg tablets daily 02/11/2025: BMI 31.13, weight 170.2 patient given 2 boxes of Wegovy 0.25 mg to inject 2 pens once weekly to be an equivalent of 0.5 mg once weekly. Resubmitting for Wegovy 0.5 mg once weekly #Hypothyroid: Rechecking TSH, T3/T4 #Hypertension: Continue losartan 25 mg tablets #Anxiety: Continue citalopram 20 mg tablets daily Patient is here for weight management followup. We focused on significance of healthy lifestyle changes. We talked about need to track steps, work on portion control, read food labels, get adequate sleep, give adequate rest of the body, meditate, frequent nutritious meals including vegetables and healthy choices of meat and elimination of refined carbohydrates. We also talked about mindfulness and mindful eating. Particular focus was on portion control Total time spent was 30 minutes with greater than 50% spent on counseling and coordinating care All questions have been answered to patient's satisfaction. Patient verbalized understanding of diagnosis and treatments explained. Advised to call sooner prior to next visit it any questions/concerns arise. Case discussed with Mayra SINGH who reviewed the assessment and plan. Chart, medications, labs, vital signs reviewed. Dictation was accomplished with the use of [employer] voice recognition software, which is prone to medical misidentifications and grammatical errors. This are unintentional and the practitioner does try to identify and correct these, but some could still be present. Please do not hesitate to contact practitioner for clarification. 02/11/2025 Dietary counseling (ICD-10 - Z71.3) Negar is a 43-year-old female who presents to the office today for weight management #Hypertension: Considering patient's blood pressure readings have been consecutively high the past few visits we will be starting patient on losartan 25 mg tablets daily. 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 MICC shot given today as well as starting Berberine daily, one tab in the morning. Hesitant on GLP-1's, however reassured patient that this is an option in the future as she does not have a family history or personal history of medullary endocrine neoplasia or thyroid cancer. 12/08/2024: BMI 32.32, weight 176.7 Wegovy 0.25 mg will be started today in office. Patient instructed on how to inject the GLP-1. Educated on alternating injection sites. We will try this for 1 month before submitting to insurance 01/09/2025: BMI 31.2, weight 170.7 Wegovy 0.25 mg sample box given to patient in office today. #Hypertension: Continue losartan 25 mg tablets #Anxiety: Continue citalopram 20 mg tablets daily 02/11/2025: BMI 31.13, weight 170.2 patient given 2 boxes of Wegovy 0.25 mg to inject 2 pens once weekly to be an equivalent of 0.5 mg once weekly. Resubmitting for Wegovy 0.5 mg once weekly #Hypothyroid: Rechecking TSH, T3/T4 #Hypertension: Continue losartan 25 mg tablets #Anxiety: Continue citalopram 20 mg tablets daily Patient is here for weight management followup. We focused on significance of healthy lifestyle changes. We talked about need to track steps, work on portion control, read food labels, get adequate sleep, give adequate rest of the body, meditate, frequent nutritious meals including vegetables and healthy choices of meat and elimination of refined carbohydrates. We also talked about mindfulness and mindful eating. Particular focus was on portion control Total time spent was 30 minutes with greater than 50% spent on counseling and coordinating care All questions have been answered to patient's satisfaction. Patient verbalized understanding of diagnosis and treatments explained. Advised to call sooner prior to next visit it any questions/concerns arise. Case discussed with Mayra SINGH who reviewed the assessment and plan. Chart, medications, labs, vital signs reviewed. Dictation was accomplished with the use of [employer] voice recognition software, which is prone to medical misidentifications and grammatical errors. This are unintentional and the practitioner does try to identify and correct these, but some could still be present. Please do not hesitate to contact practitioner for clarification. 02/11/2025 Obesity, class 1 (ICD-10 - E66.811) Negar is a 43-year-old female who presents to the office today for weight management #Hypertension: Considering patient's blood pressure readings have been consecutively high the past few visits we will be starting patient on losartan 25 mg tablets daily. 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 MICC shot given today as well as starting Berberine daily, one tab in the morning. Hesitant on GLP-1's, however reassured patient that this is an option in the future as she does not have a family history or personal history of medullary endocrine neoplasia or thyroid cancer. 12/08/2024: BMI 32.32, weight 176.7 Wegovy 0.25 mg will be started today in office. Patient instructed on how to inject the GLP-1. Educated on alternating injection sites. We will try this for 1 month before submitting to insurance 01/09/2025: BMI 31.2, weight 170.7 Wegovy 0.25 mg sample box given to patient in office today. #Hypertension: Continue losartan 25 mg tablets #Anxiety: Continue citalopram 20 mg tablets daily 02/11/2025: BMI 31.13, weight 170.2 patient given 2 boxes of Wegovy 0.25 mg to inject 2 pens once weekly to be an equivalent of 0.5 mg once weekly. Resubmitting for Wegovy 0.5 mg once weekly #Hypothyroid: Rechecking TSH, T3/T4 #Hypertension: Continue losartan 25 mg tablets #Anxiety: Continue citalopram 20 mg tablets daily Patient is here for weight management followup. We focused on significance of healthy lifestyle changes. We talked about need to track steps, work on portion control, read food labels, get adequate sleep, give adequate rest of the body, meditate, frequent nutritious meals including vegetables and healthy choices of meat and elimination of refined carbohydrates. We also talked about mindfulness and mindful eating. Particular focus was on portion control Total time spent was 30 minutes with greater than 50% spent on counseling and coordinating care All questions have been answered to patient's satisfaction. Patient verbalized understanding of diagnosis and treatments explained. Advised to call sooner prior to next visit it any questions/concerns arise. Case discussed with Mayra SINGH who reviewed the assessment and plan. Chart, medications, labs, vital signs reviewed. Dictation was accomplished with the use of [employer] voice recognition software, which is prone to medical misidentifications and grammatical errors. This are unintentional and the practitioner does try to identify and correct these, but some could still be present. Please do not hesitate to contact practitioner for clarification. 02/11/2025 Obesity, class 1 (ICD-10 - E66.811) Electronic Prior Authorization was requested for Wegovy 0.5 MG/0.5ML Solution Auto-injector. Provider can order medication once approval received. Electronic Prior Authorization was requested for Wegovy 0.5 MG/0.5ML Solution Auto-injector. Provider can order medication once approval received. 01/09/2025 Dietary counseling (ICD-10 - Z71.3) Negar is a 43-year-old female who presents to the office today for weight management #Hypertension: Considering patient's blood pressure readings have been consecutively high the past few visits we will be starting patient on losartan 25 mg tablets daily. 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 MICC shot given today as well as starting Berberine daily, one tab in the morning. Hesitant on GLP-1's, however reassured patient that this is an option in the future as she does not have a family history or personal history of medullary endocrine neoplasia or thyroid cancer. 12/08/2024: BMI 32.32, weight 176.7 Wegovy 0.25 mg will be started today in office. Patient instructed on how to inject the GLP-1. Educated on alternating injection sites. We will try this for 1 month before submitting to insurance 01/09/2025: BMI 31.2, weight 170.7 Wegovy 0.25 mg sample box given to patient in office today. #Hypertension: Continue losartan 25 mg tablets #Anxiety: Continue citalopram 20 mg tablets daily Patient is here for weight management followup. We focused on significance of healthy lifestyle changes. We talked about need to track steps, work on portion control, read food labels, get adequate sleep, give adequate rest of the body, meditate, frequent nutritious meals including vegetables and healthy choices of meat and elimination of refined carbohydrates. We also talked about mindfulness and mindful eating. Particular focus was on portion control Total time spent was 30 minutes with greater than 50% spent on counseling and coordinating care All questions have been answered to patient's satisfaction. Patient verbalized understanding of diagnosis and treatments explained. Advised to call sooner prior to next visit it any questions/concerns arise. Case discussed with Mayra SINGH who reviewed the assessment and plan. Chart, medications, labs, vital signs reviewed. Dictation was accomplished with the use of [employer] voice recognition software, which is prone to medical misidentifications and grammatical errors. This are unintentional and the practitioner does try to identify and correct these, but some could still be present. Please do not hesitate to contact practitioner for clarification. 01/09/2025 Obesity, class 1 (ICD-10 - E66.811) Negar is a 43-year-old female who presents to the office today for weight management #Hypertension: Considering patient's blood pressure readings have been consecutively high the past few visits we will be starting patient on losartan 25 mg tablets daily. 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 MICC shot given today as well as starting Berberine daily, one tab in the morning. Hesitant on GLP-1's, however reassured patient that this is an option in the future as she does not have a family history or personal history of medullary endocrine neoplasia or thyroid cancer. 12/08/2024: BMI 32.32, weight 176.7 Wegovy 0.25 mg will be started today in office. Patient instructed on how to inject the GLP-1. Educated on alternating injection sites. We will try this for 1 month before submitting to insurance 01/09/2025: BMI 31.2, weight 170.7 Wegovy 0.25 mg sample box given to patient in office today. #Hypertension: Continue losartan 25 mg tablets #Anxiety: Continue citalopram 20 mg tablets daily Patient is here for weight management followup. We focused on significance of healthy lifestyle changes. We talked about need to track steps, work on portion control, read food labels, get adequate sleep, give adequate rest of the body, meditate, frequent nutritious meals including vegetables and healthy choices of meat and elimination of refined carbohydrates. We also talked about mindfulness and mindful eating. Particular focus was on portion control Total time spent was 30 minutes with greater than 50% spent on counseling and coordinating care All questions have been answered to patient's satisfaction. Patient verbalized understanding of diagnosis and treatments explained. Advised to call sooner prior to next visit it any questions/concerns arise. Case discussed with Mayra SINGH who reviewed the assessment and plan. Chart, medications, labs, vital signs reviewed. Dictation was accomplished with the use of [employer] voice recognition software, which is prone to medical misidentifications and grammatical errors. This are unintentional and the practitioner does try to identify and correct these, but some could still be present. Please do not hesitate to contact practitioner for clarification. 12/08/2024 Dietary counseling (ICD-10 - Z71.3) Negar is a 43-year-old female who presents to the office today for weight management #Hypertension: Considering patient's blood pressure readings have been consecutively high the past few visits we will be starting patient on losartan 25 mg tablets daily. 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 MICC shot given today as well as starting Berberine daily, one tab in the morning. Hesitant on GLP-1's, however reassured patient that this is an option in the future as she does not have a family history or personal history of medullary endocrine neoplasia or thyroid cancer. 12/08/2024: BMI 32.32, weight 176.7 Wegovy 0.25 mg will be started today in office. Patient instructed on how to inject the GLP-1. Educated on alternating injection sites. We will try this for 1 month before submitting to insurance Patient is here for weight management followup. We focused on significance of healthy lifestyle changes. We talked about need to track steps, work on portion control, read food labels, get adequate sleep, give adequate rest of the body, meditate, frequent nutritious meals including vegetables and healthy choices of meat and elimination of refined carbohydrates. We also talked about mindfulness and mindful eating. Particular focus was on portion control Total time spent was 30 minutes with greater than 50% spent on counseling and coordinating care All questions have been answered to patient's satisfaction. Patient verbalized understanding of diagnosis and treatments explained. Advised to call sooner prior to next visit it any questions/concerns arise. Case discussed with Mayra SINGH who reviewed the assessment and plan. Chart, medications, labs, vital signs reviewed. Dictation was accomplished with the use of [employer] voice recognition software, which is prone to medical misidentifications and grammatical errors. This are unintentional and the practitioner does try to identify and correct these, but some could still be present. Please do not hesitate to contact practitioner for clarification. 11/11/2024 Dietary counseling (ICD-10 - Z71.3) Negar is a 43-year-old female who presents to the office today for weight management #Hypertension: Considering patient's blood pressure readings have been consecutively high the past few visits we will be starting patient on losartan 25 mg tablets daily. 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 MICC shot given today as well as starting Berberine daily, one tab in the morning. Hesitant on GLP-1's, however reassured patient that this is an option in the future as she does not have a family history or personal history of medullary endocrine neoplasia or thyroid cancer. We spent a lot of time discussing the relationship between food, exercise, sleep, mental health and obesity. Patient was counseled on the importance EATING local, organic food when possible. Patient was educated on clean 15 and dirty dozen. I provided information about reading books called The Food Rules by Aaron Cazares and Eat Fat Get Lean by Dr Reinaldo Richards. Self education is important in the journey for weight management. Patient was offered diagnostic testing. We want to measure visceral adiposity, advanced body composition, adverse lipids, fatty acid balance, risk for heart disease and atherosclerosis, markers of inflammation and genetic susceptibility. Patient was counseled on weight management and was advised to lose weight using A. Meal Replacement Products Patient was educated on the replacement products called optifast. This is a good way of taking fixed amount of calories. It has been shown in studies to be ineffective weight management tool. This however has to be coupled with lifestyle intervention as well as laboratory data and EKG monitoring. It is impossible to know how a person will tolerate complete meal replacement. The side effects of meal replacement and weight loss could include syncopal attacks, dizziness, gallstones, potential cholecystectomy, possible heart attack and even . The benefits of meal replacement would be potential weight loss but no guarantees can be made. Meal replacement products are not covered by insurance. Once the patient has bought these products we cannot return them B. Lifestyle management which includes several strategies as below 1. Eat a low carbohydrate good fat good protein diet. Eliminate refined carbohydrates from the diet. Continue blood sugar and sugared beverages. Eat local organic when possible. Cook your own meals. Read food labels. None about healthy snacks. Portion control and food with low glycemic index 2. Exercise regularly. Try to get at least 6000 steps a day. Use a predominant to track activity level. Consider using apps like [employer], [employer], lose it, stick as needed for self-monitoring and weight management. Consider group exercises. Consider hiring a administrative personal assistant. Regular exercise is rojas to sustainable health and prevents as a buffer against weight regain 3. Sleep is most important for healing. Tried to sleep at least 8 hours a night. A good quality sleep needs a sleep ritual with ideal room temperature of around 68. It might help to take a shower and have no electronics in the room and sleep in a very dark room without artificial light. Start her sleep routine and get up early in the morning and go to bed on time 4. Make a social connection. Surround yourself with positive people with positive energy. Connect with friends and family. 5. Get into the habit of meditating and mindfulness while doing everything. 6. Go outside and connect with nature. C. Prescription medications Patient was educated on the use of prescription medications for medical weight loss. This is a growing list and includes phentermine, Topamax,Qsymia, contrave, belviq and saxenda. All prescription medications could have side effects including but not limited to kidney stones seizure disorder cardiac arrhythmias heart attack pancreatitis etc. etc.. Patient was encouraged to read the prescription insert and have coaching with their pharmacist and make an informed decision about taking medication and know that these medications are being prescribed with good intentions and we do not know how a patient would react to her medication. Sudden medications are FDA approved for weight loss and there is also off label use depending on patient's inability to afford medications in an attempt to lose weight D. Behavioral counseling was done to establish a relationship between food and an mood. Patient was provided information about local counseling including the office of Dr. Terrazas in [place] and Dr Sena at [facility]. We would like to cover regular topics and build on low glycemic eating exercise mindful eating, using yoga and meditation along with deep breathing and connecting with friends and family. E. Patient's current medications were reviewed and opinion was given on medication that can cause weight gain and can be substituted F. Patient was assessed for risk with obesity including and not limiting to atherosclerosis heart disease stroke kidney disease, restrictive lung disease, irritable bowel syndrome and overall mortality. Risk of developing prediabetes diabetes and metabolic syndrome was discussed G. Therapeutic plan: We have decided to make therapeutic plan which would include choosing wisely on calories restricting portion getting active, tracking weight, getting good quality sleep and working on time management H. Patient will follow up in 4 weeks for weight management Total time spent today was 60 minutes of which greater than 50% was spent on coordinating and counseling All questions have been answered to patient's satisfaction. Patient verbalized understanding of diagnosis and treatments explained. Advised to call sooner prior to next visit it any questions/concerns arise. Case discussed with Mayra SINGH who reviewed the assessment and plan. Chart, medications, labs, vital signs reviewed. Dictation was accomplished with the use of [employer] voice recognition software, which is prone to medical misidentifications and grammatical errors. This are unintentional and the practitioner does try to identify and correct these, but some could still be present. Please do not hesitate to contact practitioner for clarification. 10/06/2024 Migraine syndrome (ICD-10 - G43.909) Negar is a pleasant 43-year-old female present today for 1 week follow-up. #Migraine: Resolved. Trialed on sumatriptan 25 mg to use as needed. Patient stated she took 1 dose of this medication with instant resolution of migraine symptoms. Has not had a repeat migraine since. Will continue to take sumatriptan as needed. #Dizziness: Resolved. 1 episode of dizziness with spontaneous resolution prior to urgent visit last week. EKG performed in office at last visit which was unremarkable. Was prescribed meclizine to take as needed while patient was being worked up for hypertension. Dizziness has not returned. #Anxiety: Patient has been stable and managed on citalopram 10 mg for anxiety for over 20 years. Has had increased stressors in her life recently having to do with her children. Believe this is a contributory factor to her elevated blood pressure. Discussed whether to treat anxiety versus hypertension at this time. Plan to increase citalopram to 20 mg. Advised patient to take 1-1/2 tabs of citalopram 10 mg to begin therapy of citalopram 15 mg x 1 week to slowly taper up. After 1 week, if patient is tolerating well, recommend begin taking citalopram 20 mg daily. Patient agreeable with plan. Discussed increased anxiety when starting or increasing this medication. If SI/HI develop, discontinue medication immediately and seek emergency care. Plan to follow-up in 8 weeks to assess medication efficacy with Nury Obrien PA-C. #Hypertension: Blood pressure elevated today in office. Has had history of elevated blood pressure in the past. Not currently on hypertensive therapy. Believe that anxiety has worsened patient's blood pressure as well as recent weight gain with an IUD. Plan to first treat anxiety and then after 8 weeks, would consider low-dose hypertensive therapy. Would also recommend lifestyle modifications of diet and exercise to improve weight, which will then secondary improved blood pressure. Plan to continue to monitor at this time. #Elevated BMI: Wt: 178.8 lbs, BMI: 32.7 has had weight gain since IUD placement. Patient struggled with heavy bleeding prior to IUD, which has since improved symptoms. Would recommend continue with an IUD as well as working on lifestyle modifications of diet and exercise to improve weight loss. Discussed weight management consultation as well as GLP-1 medication. Briefly discussed Seca scale. Recommend calling insurance whether or not they would approve Zepbound versus Wegovy. Recommend scheduling a weight management consultation. Discussed how weight loss can improve blood pressure and avoid hypertensive therapy. # Follow-up in 8 weeks for citalopram review All questions answered to patients satisfaction. Patient verbalized understanding of diagnosis and treatments explained. To call sooner prior to next visit it any questions/concerns arise. Case discussed with collaborating physician Dr. Osborn who reviewed the assessment and plan. Chart, medications, labs, vital signs reviewed. Dictation was accomplished with the use of [employer] voice recognition software, prone to medical misidentifications and grammatical errors. This is unintentional and the practitioner does try to [...] Dictation was accomplished with the use of [employer] voice recognition software, which is prone to medical misidentifications and grammatical errors. This are unintentional and the practitioner does try to identify and correct these, but some could still be present. Please do not hesitate to contact practitioner for clarification. 09/30/2024 Dizziness (ICD-10 - R42) Negar is a pleasant 43-year-old female present today for urgent visit. #Headache: Has had history of migraine as well as tension headaches. Denies thunderclap headache. Reports dull ache behind her eyes. Denies recent URI or sinus pressure. Denies nasal congestion or ear congestion. Has trialed Motrin with no relief. Trialed antihistamine Shauna she thought there was possibly fluid behind your ears. No relief. On exam bilateral ears unremarkable. No nystagmus or neurological deficits. EKG obtained today in office and within normal limits. Given failure of Motrin, we will trial sumatriptan 25 mg for migraine improvement. Will send to the pharmacy. Will consider imaging if neurologic deficits developed. #Dizziness: 1 episode of dizziness associated with nausea this morning. Spontaneously resolved. Denies any other symptoms. Possibly related to migraine, will prescribe meclizine to take as needed if dizziness returns. Plan to follow-up in 1 week for continued evaluation. Will consider vestibular rehab if it continues and becomes isolated. #Hypothyroidism: Managed by functional medicine. States she has had recent thyroid panel checked and was within normal limits. States she has been on levothyroxine 88 mcg for quite some time and is stable. Will consider lab work including thyroid function and orthostatics if symptoms persist at 1 week follow-up. #Hypertension: Patient has had history of hypertension without hypertensive therapy. Unfortunately increased stressors and personal life may be contributing to increase in blood pressure. Offered prescription for a blood pressure monitor however patient states she will buy one on [employer]. Recommend monitoring blood pressure twice daily at home and keeping a blood pressure log. Will evaluate blood pressure log in 1 week and consider hypertensive therapy. # Recommend seeking emergency care if headache worsens, develops nausea, syncope or develops neurological deficits. Patient aware. All questions answered to patients satisfaction. Patient verbalized understanding of diagnosis and treatments explained. To call sooner prior to next visit it any questions/concerns arise. Case discussed with collaborating physician Dr. Osborn who reviewed the assessment and plan. Chart, medications, labs, vital signs reviewed. Dictation was accomplished with the use of [employer] voice recognition software, prone to medical misidentifications and grammatical errors. This is unintentional and the practitioner does try to [...] log exercise and discussed fitness Apps like [employer]ope which can help keep log off calories [...] Dictation was accomplished with the use of [employer] voice recognition software, which is prone to [...] log exercise and discussed fitness Apps like [employer] which can help keep log off calories [...] Dictation was accomplished with the use of [employer] voice recognition software, which is prone to medical misidentifications and grammatical errors. This are unintentional and the practitioner does try to identify and correct these, but some could still be present. Please do not hesitate to contact practitioner for clarification. 09/30/2024 Essential hypertension (ICD-10 - I10) Negar is a pleasant 43-year-old female present today for urgent visit. #Headache: Has had history of migraine as well as tension headaches. Denies thunderclap headache. Reports dull ache behind her eyes. Denies recent URI or sinus pressure. Denies nasal congestion or ear congestion. Has trialed Motrin with no relief. Trialed antihistamine Shauna she thought there was possibly fluid behind your ears. No relief. On exam bilateral ears unremarkable. No nystagmus or neurological deficits. EKG obtained today in office and within normal limits. Given failure of Motrin, we will trial sumatriptan 25 mg for migraine improvement. Will send to the pharmacy. Will consider imaging if neurologic deficits developed. #Dizziness: 1 episode of dizziness associated with nausea this morning. Spontaneously resolved. Denies any other symptoms. Possibly related to migraine, will prescribe meclizine to take as needed if dizziness returns. Plan to follow-up in 1 week for continued evaluation. Will consider vestibular rehab if it continues and becomes isolated. #Hypothyroidism: Managed by functional medicine. States she has had recent thyroid panel checked and was within normal limits. States she has been on levothyroxine 88 mcg for quite some time and is stable. Will consider lab work including thyroid function and orthostatics if symptoms persist at 1 week follow-up. #Hypertension: Patient has had history of hypertension without hypertensive therapy. Unfortunately increased stressors and personal life may be contributing to increase in blood pressure. Offered prescription for a blood pressure monitor however patient states she will buy one on [employer]. Recommend monitoring blood pressure twice daily at home and keeping a blood pressure log. Will evaluate blood pressure log in 1 week and consider hypertensive therapy. # Recommend seeking emergency care if headache worsens, develops nausea, syncope or develops neurological deficits. Patient aware. All questions answered to patients satisfaction. Patient verbalized understanding of diagnosis and treatments explained. To call sooner prior to next visit it any questions/concerns arise. Case discussed with collaborating physician Dr. Osborn who reviewed the assessment and plan. Chart, medications, labs, vital signs reviewed. Dictation was accomplished with the use of [employer] voice recognition software, prone to medical misidentifications and grammatical errors. This is unintentional and the practitioner does try to identify and correct these, but some could still be present. Please do not hesitate to contact practitioner for clarification. 11/11/2024 Essential hypertension (ICD-10 - I10) Negar is a 43-year-old female who presents to the office today for weight management #Hypertension: Considering patient's blood pressure readings have been consecutively high the past few visits we will be starting patient on losartan 25 mg tablets daily. 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 MICC shot given today as well as starting Berberine daily, one tab in the morning. Hesitant on GLP-1's, however reassured patient that this is an option in the future as she does not have a family history or personal history of medullary endocrine neoplasia or thyroid cancer. We spent a lot of time discussing the relationship between food, exercise, sleep, mental health and obesity. Patient was counseled on the importance EATING local, organic food when possible. Patient was educated on clean 15 and dirty dozen. I provided information about reading books called The Food Rules by Aaron Cazares and Eat Fat Get Lean by Dr Reinaldo Richards. Self education is important in the journey for weight management. Patient was offered diagnostic testing. We want to measure visceral adiposity, advanced body composition, adverse lipids, fatty acid balance, risk for heart disease and atherosclerosis, markers of inflammation and genetic susceptibility. Patient was counseled on weight management and was advised to lose weight using A. Meal Replacement Products Patient was educated on the replacement products called optifast. This is a good way of taking fixed amount of calories. It has been shown in studies to be ineffective weight management tool. This however has to be coupled with lifestyle intervention as well as laboratory data and EKG monitoring. It is impossible to know how a person will tolerate complete meal replacement. The side effects of meal replacement and weight loss could include syncopal attacks, dizziness, gallstones, potential cholecystectomy, possible heart attack and even . The benefits of meal replacement would be potential weight loss but no guarantees can be made. Meal replacement products are not covered by insurance. Once the patient has bought these products we cannot return them B. Lifestyle management which includes several strategies as below 1. Eat a low carbohydrate good fat good protein diet. Eliminate refined carbohydrates from the diet. Continue blood sugar and sugared beverages. Eat local organic when possible. Cook your own meals. Read food labels. None about healthy snacks. Portion control and food with low glycemic index 2. Exercise regularly. Try to get at least 6000 steps a day. Use a predominant to track activity level. Consider using apps like [employer], myfitnesspal, lose it, stick as needed for self-monitoring and weight management. Consider group exercises. Consider hiring a administrative personal assistant. Regular exercise is roajs to sustainable health and prevents as a buffer against weight regain 3. Sleep is most important for healing. Tried to sleep at least 8 hours a night. A good quality sleep needs a sleep ritual with ideal room temperature of around 68. It might help to take a shower and have no electronics in the room and sleep in a very dark room without artificial light. Start her sleep routine and get up early in the morning and go to bed on time 4. Make a social connection. Surround yourself with positive people with positive energy. Connect with friends and family. 5. Get into the habit of meditating and mindfulness while doing everything. 6. Go outside and connect with nature. C. Prescription medications Patient was educated on the use of prescription medications for medical weight loss. This is a growing list and includes phentermine, Topamax,Qsymia, contrave, belviq and saxenda. All prescription medications could have side effects including but not limited to kidney stones seizure disorder cardiac arrhythmias heart attack pancreatitis etc. etc.. Patient was encouraged to read the prescription insert and have coaching with their pharmacist and make an informed decision about taking medication and know that these medications are being prescribed with good intentions and we do not know how a patient would react to her medication. Sudden medications are FDA approved for weight loss and there is also off label use depending on patient's inability to afford medications in an attempt to lose weight D. Behavioral counseling was done to establish a relationship between food and an mood. Patient was provided information about local counseling including the office of Dr. Terrazas in [place] and Dr Sena at [facility]. We would like to cover regular topics and build on low glycemic eating exercise mindful eating, using yoga and meditation along with deep breathing and connecting with friends and family. E. Patient's current medications were reviewed and opinion was given on medication that can cause weight gain and can be substituted F. Patient was assessed for risk with obesity including and not limiting to atherosclerosis heart disease stroke kidney disease, restrictive lung disease, irritable bowel syndrome and overall mortality. Risk of developing prediabetes diabetes and metabolic syndrome was discussed G. Therapeutic plan: We have decided to make therapeutic plan which would include choosing wisely on calories restricting portion getting active, tracking weight, getting good quality sleep and working on time management H. Patient will follow up in 4 weeks for weight management Total time spent today was 60 minutes of which greater than 50% was spent on coordinating and counseling All questions have been answered to patient's satisfaction. Patient verbalized understanding of diagnosis and treatments explained. Advised to call sooner prior to next visit it any questions/concerns arise. Case discussed with Mayra SINGH who reviewed the assessment and plan. Chart, medications, labs, vital signs reviewed. Dictation was accomplished with the use of [employer] voice recognition software, which is prone to medical misidentifications and grammatical errors. This are unintentional and the practitioner does try to identify and correct these, but some could still be present. Please do not hesitate to contact practitioner for clarification. 12/08/2024 Essential hypertension (ICD-10 - I10) Negar is a 43-year-old female who presents to the office today for weight management #Hypertension: Considering patient's blood pressure readings have been consecutively high the past few visits we will be starting patient on losartan 25 mg tablets daily. 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 MICC shot given today as well as starting Berberine daily, one tab in the morning. Hesitant on GLP-1's, however reassured patient that this is an option in the future as she does not have a family history or personal history of medullary endocrine neoplasia or thyroid cancer. 12/08/2024: BMI 32.32, weight 176.7 Wegovy 0.25 mg will be started today in office. Patient instructed on how to inject the GLP-1. Educated on alternating injection sites. We will try this for 1 month before submitting to insurance Patient is here for weight management followup. We focused on significance of healthy lifestyle changes. We talked about need to track steps, work on portion control, read food labels, get adequate sleep, give adequate rest of the body, meditate, frequent nutritious meals including vegetables and healthy choices of meat and elimination of refined carbohydrates. We also talked about mindfulness and mindful eating. Particular focus was on portion control Total time spent was 30 minutes with greater than 50% spent on counseling and coordinating care All questions have been answered to patient's satisfaction. Patient verbalized understanding of diagnosis and treatments explained. Advised to call sooner prior to next visit it any questions/concerns arise. Case discussed with Mayra SINGH who reviewed the assessment and plan. Chart, medications, labs, vital signs reviewed. Dictation was accomplished with the use of [employer] voice recognition software, which is prone to medical misidentifications and grammatical errors. This are unintentional and the practitioner does try to identify and correct these, but some could still be present. Please do not hesitate to contact practitioner for clarification. 01/09/2025 Essential hypertension (ICD-10 - I10) Negar is a 43-year-old female who presents to the office today for weight management #Hypertension: Considering patient's blood pressure readings have been consecutively high the past few visits we will be starting patient on losartan 25 mg tablets daily. 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 MICC shot given today as well as starting Berberine daily, one tab in the morning. Hesitant on GLP-1's, however reassured patient that this is an option in the future as she does not have a family history or personal history of medullary endocrine neoplasia or thyroid cancer. 12/08/2024: BMI 32.32, weight 176.7 Wegovy 0.25 mg will be started today in office. Patient instructed on how to inject the GLP-1. Educated on alternating injection sites. We will try this for 1 month before submitting to insurance 01/09/2025: BMI 31.2, weight 170.7 Wegovy 0.25 mg sample box given to patient in office today. #Hypertension: Continue losartan 25 mg tablets #Anxiety: Continue citalopram 20 mg tablets daily Patient is here for weight management followup. We focused on significance of healthy lifestyle changes. We talked about need to track steps, work on portion control, read food labels, get adequate sleep, give adequate rest of the body, meditate, frequent nutritious meals including vegetables and healthy choices of meat and elimination of refined carbohydrates. We also talked about mindfulness and mindful eating. Particular focus was on portion control Total time spent was 30 minutes with greater than 50% spent on counseling and coordinating care All questions have been answered to patient's satisfaction. Patient verbalized understanding of diagnosis and treatments explained. Advised to call sooner prior to next visit it any questions/concerns arise. Case discussed with Mayra SINGH who reviewed the assessment and plan. Chart, medications, labs, vital signs reviewed. Dictation was accomplished with the use of [employer] voice recognition software, which is prone to medical misidentifications and grammatical errors. This are unintentional and the practitioner does try to identify and correct these, but some could still be present. Please do not hesitate to contact practitioner for clarification. 02/11/2025 Essential hypertension (ICD-10 - I10) Negar is a 43-year-old female who presents to the office today for weight management #Hypertension: Considering patient's blood pressure readings have been consecutively high the past few visits we will be starting patient on losartan 25 mg tablets daily. 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 MICC shot given today as well as starting Berberine daily, one tab in the morning. Hesitant on GLP-1's, however reassured patient that this is an option in the future as she does not have a family history or personal history of medullary endocrine neoplasia or thyroid cancer. 12/08/2024: BMI 32.32, weight 176.7 Wegovy 0.25 mg will be started today in office. Patient instructed on how to inject the GLP-1. Educated on alternating injection sites. We will try this for 1 month before submitting to insurance 01/09/2025: BMI 31.2, weight 170.7 Wegovy 0.25 mg sample box given to patient in office today. #Hypertension: Continue losartan 25 mg tablets #Anxiety: Continue citalopram 20 mg tablets daily 02/11/2025: BMI 31.13, weight 170.2 patient given 2 boxes of Wegovy 0.25 mg to inject 2 pens once weekly to be an equivalent of 0.5 mg once weekly. Resubmitting for Wegovy 0.5 mg once weekly #Hypothyroid: Rechecking TSH, T3/T4 #Hypertension: Continue losartan 25 mg tablets #Anxiety: Continue citalopram 20 mg tablets daily Patient is here for weight management followup. We focused on significance of healthy lifestyle changes. We talked about need to track steps, work on portion control, read food labels, get adequate sleep, give adequate rest of the body, meditate, frequent nutritious meals including vegetables and healthy choices of meat and elimination of refined carbohydrates. We also talked about mindfulness and mindful eating. Particular focus was on portion control Total time spent was 30 minutes with greater than 50% spent on counseling and coordinating care All questions have been answered to patient's satisfaction. Patient verbalized understanding of diagnosis and treatments explained. Advised to call sooner prior to next visit it any questions/concerns arise. Case discussed with Mayra SINGH who reviewed the assessment and plan. Chart, medications, labs, vital signs reviewed. Dictation was accomplished with the use of [employer] voice recognition software, which is prone to medical misidentifications and grammatical errors. This are unintentional and the practitioner does try to identify and correct these, but some could still be present. Please do not hesitate to contact practitioner for clarification. 10/06/2024 History of dizziness (ICD-10 - Z87.898) Negar is a pleasant 43-year-old female present today for 1 week follow-up. #Migraine: Resolved. Trialed on sumatriptan 25 mg to use as needed. Patient stated she took 1 dose of this medication with instant resolution of migraine symptoms. Has not had a repeat migraine since. Will continue to take sumatriptan as needed. #Dizziness: Resolved. 1 episode of dizziness with spontaneous resolution prior to urgent visit last week. EKG performed in office at last visit which was unremarkable. Was prescribed meclizine to take as needed while patient was being worked up for hypertension. Dizziness has not returned. #Anxiety: Patient has been stable and managed on citalopram 10 mg for anxiety for over 20 years. Has had increased stressors in her life recently having to do with her children. Believe this is a contributory factor to her elevated blood pressure. Discussed whether to treat anxiety versus hypertension at this time. Plan to increase citalopram to 20 mg. Advised patient to take 1-1/2 tabs of citalopram 10 mg to begin therapy of citalopram 15 mg x 1 week to slowly taper up. After 1 week, if patient is tolerating well, recommend begin taking citalopram 20 mg daily. Patient agreeable with plan. Discussed increased anxiety when starting or increasing this medication. If SI/HI develop, discontinue medication immediately and seek emergency care. Plan to follow-up in 8 weeks to assess medication efficacy with Nury Obrien PA-C. #Hypertension: Blood pressure elevated today in office. Has had history of elevated blood pressure in the past. Not currently on hypertensive therapy. Believe that anxiety has worsened patient's blood pressure as well as recent weight gain with an IUD. Plan to first treat anxiety and then after 8 weeks, would consider low-dose hypertensive therapy. Would also recommend lifestyle modifications of diet and exercise to improve weight, which will then secondary improved blood pressure. Plan to continue to monitor at this time. #Elevated BMI: Wt: 178.8 lbs, BMI: 32.7 has had weight gain since IUD placement. Patient struggled with heavy bleeding prior to IUD, which has since improved symptoms. Would recommend continue with an IUD as well as working on lifestyle modifications of diet and exercise to improve weight loss. Discussed weight management consultation as well as GLP-1 medication. Briefly discussed Seca scale. Recommend calling insurance whether or not they would approve Zepbound versus Wegovy. Recommend scheduling a weight management consultation. Discussed how weight loss can improve blood pressure and avoid hypertensive therapy. # Follow-up in 8 weeks for citalopram review All questions answered to patients satisfaction. Patient verbalized understanding of diagnosis and treatments explained. To call sooner prior to next visit it any questions/concerns arise. Case discussed with collaborating physician Dr. Osborn who reviewed the assessment and plan. Chart, medications, labs, vital signs reviewed. Dictation was accomplished with the use of [employer] voice recognition software, prone to medical misidentifications and grammatical errors. This is unintentional and the practitioner does try to identify and correct these, but some could still be present. Please do not hesitate to contact practitioner for clarification. 02/11/2025 Anxiety (ICD-10 - F41.9) Negar is a 43-year-old female who presents to the office today for weight management #Hypertension: Considering patient's blood pressure readings have been consecutively high the past few visits we will be starting patient on losartan 25 mg tablets daily. 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 MICC shot given today as well as starting Berberine daily, one tab in the morning. Hesitant on GLP-1's, however reassured patient that this is an option in the future as she does not have a family history or personal history of medullary endocrine neoplasia or thyroid cancer. 12/08/2024: BMI 32.32, weight 176.7 Wegovy 0.25 mg will be started today in office. Patient instructed on how to inject the GLP-1. Educated on alternating injection sites. We will try this for 1 month before submitting to insurance 01/09/2025: BMI 31.2, weight 170.7 Wegovy 0.25 mg sample box given to patient in office today. #Hypertension: Continue losartan 25 mg tablets #Anxiety: Continue citalopram 20 mg tablets daily 02/11/2025: BMI 31.13, weight 170.2 patient given 2 boxes of Wegovy 0.25 mg to inject 2 pens once weekly to be an equivalent of 0.5 mg once weekly. Resubmitting for Wegovy 0.5 mg once weekly #Hypothyroid: Rechecking TSH, T3/T4 #Hypertension: Continue losartan 25 mg tablets #Anxiety: Continue citalopram 20 mg tablets daily Patient is here for weight management followup. We focused on significance of healthy lifestyle changes. We talked about need to track steps, work on portion control, read food labels, get adequate sleep, give adequate rest of the body, meditate, frequent nutritious meals including vegetables and healthy choices of meat and elimination of refined carbohydrates. We also talked about mindfulness and mindful eating. Particular focus was on portion control Total time spent was 30 minutes with greater than 50% spent on counseling and coordinating care All questions have been answered to patient's satisfaction. Patient verbalized understanding of diagnosis and treatments explained. Advised to call sooner prior to next visit it any questions/concerns arise. Case discussed with Mayra SINGH who reviewed the assessment and plan. Chart, medications, labs, vital signs reviewed. Dictation was accomplished with the use of [employer] voice recognition software, which is prone to medical misidentifications and grammatical errors. This are unintentional and the practitioner does try to identify and correct these, but some could still be present. Please do not hesitate to contact practitioner for clarification. 01/09/2025 Anxiety (ICD-10 - F41.9) Negar is a 43-year-old female who presents to the office today for weight management #Hypertension: Considering patient's blood pressure readings have been consecutively high the past few visits we will be starting patient on losartan 25 mg tablets daily. 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 MICC shot given today as well as starting Berberine daily, one tab in the morning. Hesitant on GLP-1's, however reassured patient that this is an option in the future as she does not have a family history or personal history of medullary endocrine neoplasia or thyroid cancer. 12/08/2024: BMI 32.32, weight 176.7 Wegovy 0.25 mg will be started today in office. Patient instructed on how to inject the GLP-1. Educated on alternating injection sites. We will try this for 1 month before submitting to insurance 01/09/2025: BMI 31.2, weight 170.7 Wegovy 0.25 mg sample box given to patient in office today. #Hypertension: Continue losartan 25 mg tablets #Anxiety: Continue citalopram 20 mg tablets daily Patient is here for weight management followup. We focused on significance of healthy lifestyle changes. We talked about need to track steps, work on portion control, read food labels, get adequate sleep, give adequate rest of the body, meditate, frequent nutritious meals including vegetables and healthy choices of meat and elimination of refined carbohydrates. We also talked about mindfulness and mindful eating. Particular focus was on portion control Total time spent was 30 minutes with greater than 50% spent on counseling and coordinating care All questions have been answered to patient's satisfaction. Patient verbalized understanding of diagnosis and treatments explained. Advised to call sooner prior to next visit it any questions/concerns arise. Case discussed with Mayra SIGNH who reviewed the assessment and plan. Chart, medications, labs, vital signs reviewed. Dictation was accomplished with the use of [employer] voice recognition software, which is prone to medical misidentifications and grammatical errors. This are unintentional and the practitioner does try to identify and correct these, but some could still be present. Please do not hesitate to contact practitioner for clarification. 12/08/2024 Anxiety (ICD-10 - F41.9) Negar is a 43-year-old female who presents to the office today for weight management #Hypertension: Considering patient's blood pressure readings have been consecutively high the past few visits we will be starting patient on losartan 25 mg tablets daily. 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 MICC shot given today as well as starting Berberine daily, one tab in the morning. Hesitant on GLP-1's, however reassured patient that this is an option in the future as she does not have a family history or personal history of medullary endocrine neoplasia or thyroid cancer. 12/08/2024: BMI 32.32, weight 176.7 Wegovy 0.25 mg will be started today in office. Patient instructed on how to inject the GLP-1. Educated on alternating injection sites. We will try this for 1 month before submitting to insurance Patient is here for weight management followup. We focused on significance of healthy lifestyle changes. We talked about need to track steps, work on portion control, read food labels, get adequate sleep, give adequate rest of the body, meditate, frequent nutritious meals including vegetables and healthy choices of meat and elimination of refined carbohydrates. We also talked about mindfulness and mindful eating. Particular focus was on portion control Total time spent was 30 minutes with greater than 50% spent on counseling and coordinating care All questions have been answered to patient's satisfaction. Patient verbalized understanding of diagnosis and treatments explained. Advised to call sooner prior to next visit it any questions/concerns arise. Case discussed with Mayra SINGH who reviewed the assessment and plan. Chart, medications, labs, vital signs reviewed. Dictation was accomplished with the use of [employer] voice recognition software, which is prone to medical misidentifications and grammatical errors. This are unintentional and the practitioner does try to identify and correct these, but some could still be present. Please do not hesitate to contact practitioner for clarification. 11/11/2024 Anxiety (ICD-10 - F41.9) Negar is a 43-year-old female who presents to the office today for weight management #Hypertension: Considering patient's blood pressure readings have been consecutively high the past few visits we will be starting patient on losartan 25 mg tablets daily. 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 MICC shot given today as well as starting Berberine daily, one tab in the morning. Hesitant on GLP-1's, however reassured patient that this is an option in the future as she does not have a family history or personal history of medullary endocrine neoplasia or thyroid cancer. We spent a lot of time discussing the relationship between food, exercise, sleep, mental health and obesity. Patient was counseled on the importance EATING local, organic food when possible. Patient was educated on clean 15 and dirty dozen. I provided information about reading books called The Food Rules by Aaron Cazares and Eat Fat Get Lean by Dr Reinaldo Richards. Self education is important in the journey for weight management. Patient was offered diagnostic testing. We want to measure visceral adiposity, advanced body composition, adverse lipids, fatty acid balance, risk for heart disease and atherosclerosis, markers of inflammation and genetic susceptibility. Patient was counseled on weight management and was advised to lose weight using A. Meal Replacement Products Patient was educated on the replacement products called optifast. This is a good way of taking fixed amount of calories. It has been shown in studies to be ineffective weight management tool. This however has to be coupled with lifestyle intervention as well as laboratory data and EKG monitoring. It is impossible to know how a person will tolerate complete meal replacement. The side effects of meal replacement and weight loss could include syncopal attacks, dizziness, gallstones, potential cholecystectomy, possible heart attack and even . The benefits of meal replacement would be potential weight loss but no guarantees can be made. Meal replacement products are not covered by insurance. Once the patient has bought these products we cannot return them B. Lifestyle management which includes several strategies as below 1. Eat a low carbohydrate good fat good protein diet. Eliminate refined carbohydrates from the diet. Continue blood sugar and sugared beverages. Eat local organic when possible. Cook your own meals. Read food labels. None about healthy snacks. Portion control and food with low glycemic index 2. Exercise regularly. Try to get at least 6000 steps a day. Use a predominant to track activity level. Consider using apps like [employer], [employer], lose it, stick as needed for self-monitoring and weight management. Consider group exercises. Consider hiring a administrative personal assistant. Regular exercise is rojas to sustainable health and prevents as a buffer against weight regain 3. Sleep is most important for healing. Tried to sleep at least 8 hours a night. A good quality sleep needs a sleep ritual with ideal room temperature of around 68. It might help to take a shower and have no electronics in the room and sleep in a very dark room without artificial light. Start her sleep routine and get up early in the morning and go to bed on time 4. Make a social connection. Surround yourself with positive people with positive energy. Connect with friends and family. 5. Get into the habit of meditating and mindfulness while doing everything. 6. Go outside and connect with nature. C. Prescription medications Patient was educated on the use of prescription medications for medical weight loss. This is a growing list and includes phentermine, Topamax,Qsymia, contrave, belviq and saxenda. All prescription medications could have side effects including but not limited to kidney stones seizure disorder cardiac arrhythmias heart attack pancreatitis etc. etc.. Patient was encouraged to read the prescription insert and have coaching with their pharmacist and make an informed decision about taking medication and know that these medications are being prescribed with good intentions and we do not know how a patient would react to her medication. Sudden medications are FDA approved for weight loss and there is also off label use depending on patient's inability to afford medications in an attempt to lose weight D. Behavioral counseling was done to establish a relationship between food and an mood. Patient was provided information about local counseling including the office of Dr. Terrazas in [place] and Dr Sena at [facility]. We would like to cover regular topics and build on low glycemic eating exercise mindful eating, using yoga and meditation along with deep breathing and connecting with friends and family. E. Patient's current medications were reviewed and opinion was given on medication that can cause weight gain and can be substituted F. Patient was assessed for risk with obesity including and not limiting to atherosclerosis heart disease stroke kidney disease, restrictive lung disease, irritable bowel syndrome and overall mortality. Risk of developing prediabetes diabetes and metabolic syndrome was discussed G. Therapeutic plan: We have decided to make therapeutic plan which would include choosing wisely on calories restricting portion getting active, tracking weight, getting good quality sleep and working on time management H. Patient will follow up in 4 weeks for weight management Total time spent today was 60 minutes of which greater than 50% was spent on coordinating and counseling All questions have been answered to patient's satisfaction. Patient verbalized understanding of diagnosis and treatments explained. Advised to call sooner prior to next visit it any questions/concerns arise. Case discussed with Mayra SINGH who reviewed the assessment and plan. Chart, medications, labs, vital signs reviewed. Dictation was accomplished with the use of [employer] voice recognition software, which is prone to medical misidentifications and grammatical errors. This are unintentional and the practitioner does try to identify and correct these, but some could still be present. Please do not hesitate to contact practitioner for clarification. 10/06/2024 Obesity (BMI 30-39.9) (ICD-10 - E66.9) Negar is a pleasant 43-year-old female present today for 1 week follow-up. #Migraine: Resolved. Trialed on sumatriptan 25 mg to use as needed. Patient stated she took 1 dose of this medication with instant resolution of migraine symptoms. Has not had a repeat migraine since. Will continue to take sumatriptan as needed. #Dizziness: Resolved. 1 episode of dizziness with spontaneous resolution prior to urgent visit last week. EKG performed in office at last visit which was unremarkable. Was prescribed meclizine to take as needed while patient was being worked up for hypertension. Dizziness has not returned. #Anxiety: Patient has been stable and managed on citalopram 10 mg for anxiety for over 20 years. Has had increased stressors in her life recently having to do with her children. Believe this is a contributory factor to her elevated blood pressure. Discussed whether to treat anxiety versus hypertension at this time. Plan to increase citalopram to 20 mg. Advised patient to take 1-1/2 tabs of citalopram 10 mg to begin therapy of citalopram 15 mg x 1 week to slowly taper up. After 1 week, if patient is tolerating well, recommend begin taking citalopram 20 mg daily. Patient agreeable with plan. Discussed increased anxiety when starting or increasing this medication. If SI/HI develop, discontinue medication immediately and seek emergency care. Plan to follow-up in 8 weeks to assess medication efficacy with Nury Obrien PA-C. #Hypertension: Blood pressure elevated today in office. Has had history of elevated blood pressure in the past. Not currently on hypertensive therapy. Believe that anxiety has worsened patient's blood pressure as well as recent weight gain with an IUD. Plan to first treat anxiety and then after 8 weeks, would consider low-dose hypertensive therapy. Would also recommend lifestyle modifications of diet and exercise to improve weight, which will then secondary improved blood pressure. Plan to continue to monitor at this time. #Elevated BMI: Wt: 178.8 lbs, BMI: 32.7 has had weight gain since IUD placement. Patient struggled with heavy bleeding prior to IUD, which has since improved symptoms. Would recommend continue with an IUD as well as working on lifestyle modifications of diet and exercise to improve weight loss. Discussed weight management consultation as well as GLP-1 medication. Briefly discussed Seca scale. Recommend calling insurance whether or not they would approve Zepbound versus Wegovy. Recommend scheduling a weight management consultation. Discussed how weight loss can improve blood pressure and avoid hypertensive therapy. # Follow-up in 8 weeks for citalopram review All questions answered to patients satisfaction. Patient verbalized understanding of diagnosis and treatments explained. To call sooner prior to next visit it any questions/concerns arise. Case discussed with collaborating physician Dr. Osborn who reviewed the assessment and plan. Chart, medications, labs, vital signs reviewed. Dictation was accomplished with the use of [employer] voice recognition software, prone to medical misidentifications and grammatical errors. This is unintentional and the practitioner does try to [...] log exercise and discussed fitness Apps like [employer] which can help keep log off calories [...] Dictation was accomplished with the use of [employer] voice recognition software, which is prone to medical misidentifications and grammatical errors. This are unintentional and the practitioner does try to identify and correct these, but some could still be present. Please do not hesitate to contact practitioner for clarification. 09/30/2024 Encounter for examination of blood pressure with abnormal findings (ICD-10 - Z01.31) Negar is a pleasant 43-year-old female present today for urgent visit. #Headache: Has had history of migraine as well as tension headaches. Denies thunderclap headache. Reports dull ache behind her eyes. Denies recent URI or sinus pressure. Denies nasal congestion or ear congestion. Has trialed Motrin with no relief. Trialed antihistamine Shauna she thought there was possibly fluid behind your ears. No relief. On exam bilateral ears unremarkable. No nystagmus or neurological deficits. EKG obtained today in office and within normal limits. Given failure of Motrin, we will trial sumatriptan 25 mg for migraine improvement. Will send to the pharmacy. Will consider imaging if neurologic deficits developed. #Dizziness: 1 episode of dizziness associated with nausea this morning. Spontaneously resolved. Denies any other symptoms. Possibly related to migraine, will prescribe meclizine to take as needed if dizziness returns. Plan to follow-up in 1 week for continued evaluation. Will consider vestibular rehab if it continues and becomes isolated. #Hypothyroidism: Managed by functional medicine. States she has had recent thyroid panel checked and was within normal limits. States she has been on levothyroxine 88 mcg for quite some time and is stable. Will consider lab work including thyroid function and orthostatics if symptoms persist at 1 week follow-up. #Hypertension: Patient has had history of hypertension without hypertensive therapy. Unfortunately increased stressors and personal life may be contributing to increase in blood pressure. Offered prescription for a blood pressure monitor however patient states she will buy one on [employer]. Recommend monitoring blood pressure twice daily at home and keeping a blood pressure log. Will evaluate blood pressure log in 1 week and consider hypertensive therapy. # Recommend seeking emergency care if headache worsens, develops nausea, syncope or develops neurological deficits. Patient aware. All questions answered to patients satisfaction. Patient verbalized understanding of diagnosis and treatments explained. To call sooner prior to next visit it any questions/concerns arise. Case discussed with collaborating physician Dr. Osborn who reviewed the assessment and plan. Chart, medications, labs, vital signs reviewed. Dictation was accomplished with the use of [employer] voice recognition software, prone to medical misidentifications and grammatical errors. This is unintentional and the practitioner does try to identify and correct these, but some could still be present. Please do not hesitate to contact practitioner for clarification. 10/06/2024 Encounter for examination of blood pressure with abnormal findings (ICD-10 - Z01.31) Negar is a pleasant 43-year-old female present today for 1 week follow-up. #Migraine: Resolved. Trialed on sumatriptan 25 mg to use as needed. Patient stated she took 1 dose of this medication with instant resolution of migraine symptoms. Has not had a repeat migraine since. Will continue to take sumatriptan as needed. #Dizziness: Resolved. 1 episode of dizziness with spontaneous resolution prior to urgent visit last week. EKG performed in office at last visit which was unremarkable. Was prescribed meclizine to take as needed while patient was being worked up for hypertension. Dizziness has not returned. #Anxiety: Patient has been stable and managed on citalopram 10 mg for anxiety for over 20 years. Has had increased stressors in her life recently having to do with her children. Believe this is a contributory factor to her elevated blood pressure. Discussed whether to treat anxiety versus hypertension at this time. Plan to increase citalopram to 20 mg. Advised patient to take 1-1/2 tabs of citalopram 10 mg to begin therapy of citalopram 15 mg x 1 week to slowly taper up. After 1 week, if patient is tolerating well, recommend begin taking citalopram 20 mg daily. Patient agreeable with plan. Discussed increased anxiety when starting or increasing this medication. If SI/HI develop, discontinue medication immediately and seek emergency care. Plan to follow-up in 8 weeks to assess medication efficacy with Nury Obrien PA-C. #Hypertension: Blood pressure elevated today in office. Has had history of elevated blood pressure in the past. Not currently on hypertensive therapy. Believe that anxiety has worsened patient's blood pressure as well as recent weight gain with an IUD. Plan to first treat anxiety and then after 8 weeks, would consider low-dose hypertensive therapy. Would also recommend lifestyle modifications of diet and exercise to improve weight, which will then secondary improved blood pressure. Plan to continue to monitor at this time. #Elevated BMI: Wt: 178.8 lbs, BMI: 32.7 has had weight gain since IUD placement. Patient struggled with heavy bleeding prior to IUD, which has since improved symptoms. Would recommend continue with an IUD as well as working on lifestyle modifications of diet and exercise to improve weight loss. Discussed weight management consultation as well as GLP-1 medication. Briefly discussed Seca scale. Recommend calling insurance whether or not they would approve Zepbound versus Wegovy. Recommend scheduling a weight management consultation. Discussed how weight loss can improve blood pressure and avoid hypertensive therapy. # Follow-up in 8 weeks for citalopram review All questions answered to patients satisfaction. Patient verbalized understanding of diagnosis and treatments explained. To call sooner prior to next visit it any questions/concerns arise. Case discussed with collaborating physician Dr. Osborn who reviewed the assessment and plan. Chart, medications, labs, vital signs reviewed. Dictation was accomplished with the use of [employer] voice recognition software, prone to medical misidentifications and grammatical errors. This is unintentional and the practitioner does try to identify and correct these, but some could still be present. Please do not hesitate to contact practitioner for clarification. 11/11/2024 Encounter for examination of blood pressure with abnormal findings (ICD-10 - Z01.31) Negar is a 43-year-old female who presents to the office today for weight management #Hypertension: Considering patient's blood pressure readings have been consecutively high the past few visits we will be starting patient on losartan 25 mg tablets daily. 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 MICC shot given today as well as starting Berberine daily, one tab in the morning. Hesitant on GLP-1's, however reassured patient that this is an option in the future as she does not have a family history or personal history of medullary endocrine neoplasia or thyroid cancer. We spent a lot of time discussing the relationship between food, exercise, sleep, mental health and obesity. Patient was counseled on the importance EATING local, organic food when possible. Patient was educated on clean 15 and dirty dozen. I provided information about reading books called The Food Rules by Aaron Cazares and Eat Fat Get Lean by Dr Reinaldo Richards. Self education is important in the journey for weight management. Patient was offered diagnostic testing. We want to measure visceral adiposity, advanced body composition, adverse lipids, fatty acid balance, risk for heart disease and atherosclerosis, markers of inflammation and genetic susceptibility. Patient was counseled on weight management and was advised to lose weight using A. Meal Replacement Products Patient was educated on the replacement products called optifast. This is a good way of taking fixed amount of calories. It has been shown in studies to be ineffective weight management tool. This however has to be coupled with lifestyle intervention as well as laboratory data and EKG monitoring. It is impossible to know how a person will tolerate complete meal replacement. The side effects of meal replacement and weight loss could include syncopal attacks, dizziness, gallstones, potential cholecystectomy, possible heart attack and even . The benefits of meal replacement would be potential weight loss but no guarantees can be made. Meal replacement products are not covered by insurance. Once the patient has bought these products we cannot return them B. Lifestyle management which includes several strategies as below 1. Eat a low carbohydrate good fat good protein diet. Eliminate refined carbohydrates from the diet. Continue blood sugar and sugared beverages. Eat local organic when possible. Cook your own meals. Read food labels. None about healthy snacks. Portion control and food with low glycemic index 2. Exercise regularly. Try to get at least 6000 steps a day. Use a predominant to track activity level. Consider using apps like [employer], [employer], lose it, stick as needed for self-monitoring and weight management. Consider group exercises. Consider hiring a administrative personal assistant. Regular exercise is rojas to sustainable health and prevents as a buffer against weight regain 3. Sleep is most important for healing. Tried to sleep at least 8 hours a night. A good quality sleep needs a sleep ritual with ideal room temperature of around 68. It might help to take a shower and have no electronics in the room and sleep in a very dark room without artificial light. Start her sleep routine and get up early in the morning and go to bed on time 4. Make a social connection. Surround yourself with positive people with positive energy. Connect with friends and family. 5. Get into the habit of meditating and mindfulness while doing everything. 6. Go outside and connect with nature. C. Prescription medications Patient was educated on the use of prescription medications for medical weight loss. This is a growing list and includes phentermine, Topamax,Qsymia, contrave, belviq and saxenda. All prescription medications could have side effects including but not limited to kidney stones seizure disorder cardiac arrhythmias heart attack pancreatitis etc. etc.. Patient was encouraged to read the prescription insert and have coaching with their pharmacist and make an informed decision about taking medication and know that these medications are being prescribed with good intentions and we do not know how a patient would react to her medication. Sudden medications are FDA approved for weight loss and there is also off label use depending on patient's inability to afford medications in an attempt to lose weight D. Behavioral counseling was done to establish a relationship between food and an mood. Patient was provided information about local counseling including the office of Dr. Terrazas in [place] and Dr Sena at [place]. We would like to cover regular topics and build on low glycemic eating exercise mindful eating, using yoga and meditation along with deep breathing and connecting with friends and family. E. Patient's current medications were reviewed and opinion was given on medication that can cause weight gain and can be substituted F. Patient was assessed for risk with obesity including and not limiting to atherosclerosis heart disease stroke kidney disease, restrictive lung disease, irritable bowel syndrome and overall mortality. Risk of developing prediabetes diabetes and metabolic syndrome was discussed G. Therapeutic plan: We have decided to make therapeutic plan which would include choosing wisely on calories restricting portion getting active, tracking weight, getting good quality sleep and working on time management H. Patient will follow up in 4 weeks for weight management Total time spent today was 60 minutes of which greater than 50% was spent on coordinating and counseling All questions have been answered to patient's satisfaction. Patient verbalized understanding of diagnosis and treatments explained. Advised to call sooner prior to next visit it any questions/concerns arise. Case discussed with Mayra SINGH who reviewed the assessment and plan. Chart, medications, labs, vital signs reviewed. Dictation was accomplished with the use of [employer] voice recognition software, which is prone to medical misidentifications and grammatical errors. This are unintentional and the practitioner does try to identify and correct these, but some could still be present. Please do not hesitate to contact practitioner for clarification. 12/08/2024 Encounter for examination of blood pressure with abnormal findings (ICD-10 - Z01.31) Negar is a 43-year-old female who presents to the office today for weight management #Hypertension: Considering patient's blood pressure readings have been consecutively high the past few visits we will be starting patient on losartan 25 mg tablets daily. 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 MICC shot given today as well as starting Berberine daily, one tab in the morning. Hesitant on GLP-1's, however reassured patient that this is an option in the future as she does not have a family history or personal history of medullary endocrine neoplasia or thyroid cancer. 12/08/2024: BMI 32.32, weight 176.7 Wegovy 0.25 mg will be started today in office. Patient instructed on how to inject the GLP-1. Educated on alternating injection sites. We will try this for 1 month before submitting to insurance Patient is here for weight management followup. We focused on significance of healthy lifestyle changes. We talked about need to track steps, work on portion control, read food labels, get adequate sleep, give adequate rest of the body, meditate, frequent nutritious meals including vegetables and healthy choices of meat and elimination of refined carbohydrates. We also talked about mindfulness and mindful eating. Particular focus was on portion control Total time spent was 30 minutes with greater than 50% spent on counseling and coordinating care All questions have been answered to patient's satisfaction. Patient verbalized understanding of diagnosis and treatments explained. Advised to call sooner prior to next visit it any questions/concerns arise. Case discussed with Mayra SINGH who reviewed the assessment and plan. Chart, medications, labs, vital signs reviewed. Dictation was accomplished with the use of [employer] voice recognition software, which is prone to medical misidentifications and grammatical errors. This are unintentional and the practitioner does try to identify and correct these, but some could still be present. Please do not hesitate to contact practitioner for clarification. 01/09/2025 Encounter for examination of blood pressure with abnormal findings (ICD-10 - Z01.31) Negar is a 43-year-old female who presents to the office today for weight management #Hypertension: Considering patient's blood pressure readings have been consecutively high the past few visits we will be starting patient on losartan 25 mg tablets daily. 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 MICC shot given today as well as starting Berberine daily, one tab in the morning. Hesitant on GLP-1's, however reassured patient that this is an option in the future as she does not have a family history or personal history of medullary endocrine neoplasia or thyroid cancer. 12/08/2024: BMI 32.32, weight 176.7 Wegovy 0.25 mg will be started today in office. Patient instructed on how to inject the GLP-1. Educated on alternating injection sites. We will try this for 1 month before submitting to insurance 01/09/2025: BMI 31.2, weight 170.7 Wegovy 0.25 mg sample box given to patient in office today. #Hypertension: Continue losartan 25 mg tablets #Anxiety: Continue citalopram 20 mg tablets daily Patient is here for weight management followup. We focused on significance of healthy lifestyle changes. We talked about need to track steps, work on portion control, read food labels, get adequate sleep, give adequate rest of the body, meditate, frequent nutritious meals including vegetables and healthy choices of meat and elimination of refined carbohydrates. We also talked about mindfulness and mindful eating. Particular focus was on portion control Total time spent was 30 minutes with greater than 50% spent on counseling and coordinating care All questions have been answered to patient's satisfaction. Patient verbalized understanding of diagnosis and treatments explained. Advised to call sooner prior to next visit it any questions/concerns arise. Case discussed with Mayra SINGH who reviewed the assessment and plan. Chart, medications, labs, vital signs reviewed. Dictation was accomplished with the use of [employer] voice recognition software, which is prone to medical misidentifications and grammatical errors. This are unintentional and the practitioner does try to identify and correct these, but some could still be present. Please do not hesitate to contact practitioner for clarification. 02/11/2025 Encounter for examination of blood pressure with abnormal findings (ICD-10 - Z01.31) Negar is a 43-year-old female who presents to the office today for weight management #Hypertension: Considering patient's blood pressure readings have been consecutively high the past few visits we will be starting patient on losartan 25 mg tablets daily. 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 MICC shot given today as well as starting Berberine daily, one tab in the morning. Hesitant on GLP-1's, however reassured patient that this is an option in the future as she does not have a family history or personal history of medullary endocrine neoplasia or thyroid cancer. 12/08/2024: BMI 32.32, weight 176.7 Wegovy 0.25 mg will be started today in office. Patient instructed on how to inject the GLP-1. Educated on alternating injection sites. We will try this for 1 month before submitting to insurance 01/09/2025: BMI 31.2, weight 170.7 Wegovy 0.25 mg sample box given to patient in office today. #Hypertension: Continue losartan 25 mg tablets #Anxiety: Continue citalopram 20 mg tablets daily 02/11/2025: BMI 31.13, weight 170.2 patient given 2 boxes of Wegovy 0.25 mg to inject 2 pens once weekly to be an equivalent of 0.5 mg once weekly. Resubmitting for Wegovy 0.5 mg once weekly #Hypothyroid: Rechecking TSH, T3/T4 #Hypertension: Continue losartan 25 mg tablets #Anxiety: Continue citalopram 20 mg tablets daily Patient is here for weight management followup. We focused on significance of healthy lifestyle changes. We talked about need to track steps, work on portion control, read food labels, get adequate sleep, give adequate rest of the body, meditate, frequent nutritious meals including vegetables and healthy choices of meat and elimination of refined carbohydrates. We also talked about mindfulness and mindful eating. Particular focus was on portion control Total time spent was 30 minutes with greater than 50% spent on counseling and coordinating care All questions have been answered to patient's satisfaction. Patient verbalized understanding of diagnosis and treatments explained. Advised to call sooner prior to next visit it any questions/concerns arise. Case discussed with Mayra SINGH who reviewed the assessment and plan. Chart, medications, labs, vital signs reviewed. Dictation was accomplished with the use of [employer] voice recognition software, which is prone to medical misidentifications and grammatical errors. This are unintentional and the practitioner does try to identify and correct these, but some could still be present. Please do not hesitate to contact practitioner for clarification. Plan Of Treatment Pending Test Test Name Order Date LIPID PANEL, STANDARD 03/05/2024 FSH AND LH 03/05/2024 COMPREHENSIVE METABOLIC PANEL 03/05/2024 BASIC METABOLIC PANEL 03/05/2024 CBC (INCLUDES DIFF/PLT) 03/05/2024 PROGESTERONE 03/05/2024 T4, FREE 03/05/2024 CORTISOL, TOTAL 03/05/2024 TSH 03/05/2024 T3, FREE 03/05/2024 VITAMIN D,25-OH,TOTAL,IA 03/05/2024 ESTROGEN, TOTAL, SERUM 03/05/2024 TESTOSTERONE, FREE (DIALYSIS) AND TOTAL, MS 03/05/2024 TSH+T3+Free T4+T3 Free 02/11/2025 Next Appt Details Provider Name:NURY MICAH, 12:00:00 PM, [address], [place], [id number], Insurance Providers Payer Name Payer Address Payer Phone Subscriber Number Group Number Insured Name Patient Relationship to Insured Coverage Start Date Coverage End Date [facility] [address] [place] [address] [id number] Negar Velazquez Self - patient is the insured Medications Administered Medication Instructions Date of Administration Dosage Notes MICC B12 INJECTION 11/11/2024 1 mL Medical (General) History Medical History History ICD Code 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
[2025-03-03 11:33] LABS: Thyroid Stimulating Hormone 0.47 uIU/mL (0.32-4.0)
== END 2025-03-03 09:46 | disposition home or self-care (01) ==
LOC: HO.10HDL 09:45
DX: Z13.29 Encounter for screening for other suspected endocrine disorder (principal)
CPT/HCPCS: 36415; 84436; 84443; 84481